=== PATIENT | female | born 1960 | race Caucasian/White ===

== ENCOUNTER 2016-10-17 14:49 | Inpatient (IN) | payer MEDICAID ==
[2016-10-17] MEDS ORDERED: Sodium Chloride 0.9% 2,000 ML IV ONE (15:25)
[2016-10-17] MEDS ORDERED: Morphine Sulfate 4 mg/mL 1mL Syr ONE (15:26)
--- NOTE | 2016-10-17 15:32 | ED Physician Chart ---
Chief Complaint/HPI - Patient Information Date Seen:: 10/17/16 Time Seen:: 15:05 Chief Complaint:: FEVER, BODY ACHES, ABD PAIN SINCE YESTERDAY History of Present Illness:: This 56-year-old female presents with onset of fever, body aches and abdominal pain since yesterday. He had a fever of 102 this morning after she came home from work. She has pain in the region of the right shoulder which radiates all the way down to the right knee. Patient also has right upper quadrant, epigastric and left upper quadrant abdominal pain which radiates to the back. The pain is made worse by taking deep breaths and pressure over the area. Pain is accompanied by nausea without any vomiting or diarrhea. She characterizes the pain as being crampy with the severity of 9/10. The patient is status post cholecystectomy and appendectomy. The patient has not experienced similar symptoms in the past. 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 Allergies:: Allergies Allergy/AdvReac Type Severity Reaction Status Date / Time No Known Allergies Allergy Verified 10/17/16 14:56 Vitals:: Vital Signs - 8 hr 10/17/16 14:59 Temp 99.9 F HR 97 RR 18 BP 152/73 O2 Sat % 100 Review of Systems - Review of Systems General/Constitutional: Fever, Chills, No diaphoresis Skin: No rash, No bruising, Other (the patient has cat scratches on the inner surface of her left forearm from her cat.) Head: Headache, No light-headedness Eyes: No loss of vision, No diplopia ENT: No earache, No sore throat, Other (has nasal congestion with pain under both eyes.) Neck: Neck pain, No swelling, Stiffness, No mass noted GI: Nausea, No vomiting, No diarrhea, Pain, No constipation G/U: No dysuria, No frequency, No hematuria [employer] Adjuster: No abnormal vaginal bleed Musculoskeletal: Bone or joint pain (patient's joint pain is present primarily in the right shoulder and the right knee.), Back pain, Other (the patient's abdominal pain radiates around to her back.) Endocrine: No polyuria, No polydipsia Psychiatric: No prior psych history, No depression, No suicidal ideation Hematopoietic: No bruising, No lymphadenopathy Allergic/Immuno: No urticaria, No angioedema Neurological: No syncope, No focal symptoms, Weakness (weakness is generalized.) , No paresthesia, Headache, No seizure, No dizziness, No confusion, No vertigo Past Medical History - Past Medical History Past Medical History: DM, Other (had multiple episodes of SVT between 2004 and 2008 when she underwent ablation therapy.) Social History: Non Smoker, No Alcohol, No Drug Use, Legally, Employed , Other Employment:: 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 Surgical History: Appendectomy, Cholecystectomy, Family Medical History - Family Member Mother History Unknown: Yes Physical Exam - Physical Examination General/Constitutional: Awake, Well-developed, well-nourished, Alert, Non-toxic appearing, Ambulatory Other Gen/Cons comments:: Patient rates her abdominal pain is a 9/10 but she doesn't appear to be in significant distress. Head: Atraumatic Eyes: Lids, conjuctiva normal, PERRL, EOMI Other Eyes comments:: Sclera are anicteric and the patient has no nystagmus. Skin: No rash Other Skin comments:: Patient has multiple superficial scratches on the inner aspect of the left forearm. These came from her cat. ENMT: External ears, nose nl, TM canals nl, Nasal exam nl, Lips, teeth, gums nl , Oropharynx nl, Tonsils nl Neck: No JVD Other Neck comments:: Mild stiffness with associated pain 1 AP flexion is tested. Respiratory: Nl effort/Exclusion, No Wheeze/Rhonchi/Rales Cardio Vascular: RRR, No murmur, gallop, rubs, NL S1 S2 Other Cardio Vascular comments:: Good pulses in all 4 extremities. Other GI comments:: The patient's abdomen is nondistended. She has multiple abdominal scars from a , appendectomy and laparoscopic cholecystectomy. Bowel sounds are present but of decreased frequency. On palpation I don't appreciate any splenomegaly or hepatomegaly. There is plus for tenderness in the right upper quadrant, epigastric region, and left upper quadrant. No associated rebound or guarding is present. No pulsatile masses present. No hernias. : No CVA tenderness Extremities: No tenderness or effusion, Full ROM, normal strength in all extremities, No edema, Normal digits & nails Misc: Normal back, No paraspinal tenderness Other Misc comments:: No spinal tenderness in the cervical, thoracic or lumbar spine. Labs/Radiology/EKG Results - Lab Results Results: Laboratory Tests 10/17/16 10/17/16 10/17/16 15:34 15:34 15:34 WBC 13.7 H RBC 4.28 Hgb 11.9 Hct 35.0 MCV 81.6 MCH 27.8 MCHC Differential 34.1 RDW 11.1 L Plt Count 325 MPV 8.5 Neutrophils % 85.8 H Lymphocytes % 7.7 L Monocytes % 5.0 Eosinophils % 0.9 Basophils % 0.6 Sodium 125 L Potassium 4.2 Chloride 96 L Carbon Dioxide 21.0 Anion Gap 12.2 BUN 33 H Creatinine 2.2 H Est GFR ( Amer) 29.7 Est GFR (Non-Af Amer) 24.5 BUN/Creatinine Ratio 15.0 Glucose 529 H* Hemoglobin A1c % Whole Bld Lactic Acid 3.00 H* Calcium 9.4 Total Bilirubin 0.6 AST 13 ALT 12 Alkaline Phosphatase 80 Troponin I Total Protein 6.7 Albumin 3.7 Globulin 3.0 Albumin/Globulin Ratio 1.2 Amylase 57 Lipase 32 Serum Ketones 10/17/16 10/17/16 10/17/16 15:34 15:34 15:34 WBC RBC Hgb Hct MCV MCH MCHC Differential RDW Plt Count MPV Neutrophils % Lymphocytes % Monocytes % Eosinophils % Basophils % Sodium Potassium Chloride Carbon Dioxide Anion Gap BUN Creatinine Est GFR ( Amer) Est GFR (Non-Af Amer) BUN/Creatinine Ratio Glucose Hemoglobin A1c % > 15.0 H Whole Bld Lactic Acid Calcium Total Bilirubin AST ALT Alkaline Phosphatase Troponin I 0.01 Total Protein Albumin Globulin Albumin/Globulin Ratio Amylase Lipase Serum Ketones NEGATIVE SINGLE VIEW CXR: NO CARDIOMEGALY OR CHF. NO AREAS OF PULMONARY INFITRATE OR CONSOLIDATION. NO PNEUMOTHORAX OR PLEURAL EFFUSION. NORMAL MEDIASTINUM. IMPRESSION: NO ACUTE CARDIOPULMONARY FINDINGS. - EKG Interpretations EKG Time:: 16:10 Rate & Rhythm: normal sinus at a rate of 90 and without ectopy. [place]: E axis is normal. Intervals: normal HI interval. Normal QRS duration. Normal QT intervals Comments:: No ST elevation or depression. Mild flattening of the T waves. Impression: No acute ischemic findings. Assessment - Assessment General Assessment: CASE SUMMARY: This 56 year old female presents with onset of fever, abdominal pain and arthralgias. A sepsis workup was initiated. The patient was treated with 30 mL per KG normal saline. Laboratory studies showed a white count of 13.7, a lactic acid both .0, normal lipase and amylase, and a serum glucose of 529. she was treated with IV Zosyn and vancomycin. The patient symptoms were addressed with IV Zofran and morphine. She had good relief of pain and nausea. The case was discussed with Dr. Sotelo. The patient is being admitted for further diagnostic studies and treatment of sepsis. The patient was stable at the time of admission. MDM DDX Fever and Epigastric Pain: NOT Pancreatitis based on normal amylase and lipase levels. NOT Acute cholecystitis based on the patient's history of prior cholecystectomy. NOT Pneumonia based on the patient's history, physical examination in normal chest x-ray. NOT Acute appendicitis based on history of prior appendectomy. CRITICAL CARE OF 90 MINUTES FOR Treatment of acute sepsis, hyperglycemia, and abdominal pain. This was exclusive of any diagnostic procedures. ED Septic Shock - . Is Septic Shock (SBP<90, OR Lactate>4 mmol\L) present?: No - <6hrs of presentation: Vital Signs: Vital Signs - 8 hr 10/17/16 14:59 Temp 99.9 F HR 97 RR 18 BP 152/73 O2 Sat % 100 Reassessment (Disposition) - Reassessment Reassessment Condition:: Improved - Diagnosis Diagnosis:: ACUTE SEPSIS, UNCLEAR SOURCE. DIABETES WITH SEVERE HYPER GLYCEMIA IN THE 500 RANGE. - Aftercare/Follow up Instructions Aftercare/Follow-Up Instructions:: Counseled pt regarding lab results/diagnosis & need follow up ED Discharge Plan - Patient Disposition Admit/Discharge/Transfer: Acute Care w/in this hosp
[2016-10-17 15:43] LABS: % EOSINOPHILS 0.9 % (0.0-5.0); % LYMPHOCYTES 7.7 % (20.0-50.0); NEUTROPHILE ABSOLUTE 11.7 Th/cmm (1.8-8.0); PLATELET COUNT 325 Th/cmm (150-400)
[2016-10-17 15:49] LABS: % BASOPHILS 0.6 % (0.0-2.0); % NEUTROPHILS 85.8 % (40.0-80.0); HEMOGLOBIN 11.9 gm/dL (11.7-15.5); MEAN CELL VOLUME 81.6 fl (81-100); MEAN CORPUSCULAR HEMOGLOBIN 27.8 pg (27.0-31.0); MEAN CORPUSCULAR HGB CONC 34.1 pg (28.0-36.0); MEAN PLATELET VOLUME 8.5 fl; RED BLOOD COUNT 4.28 Mil/cmm (3.80-5.10); RED CELL DISTRIBUTION WIDTH 11.1 % (11.5-20.0)
[2016-10-17 15:52] LABS: WHITE BLOOD COUNT 13.7 Th/cmm (4.8-10.8)
[2016-10-17 16:00] LABS: ALB/GLOB RATIO 1.2 (1.0-1.8); ANION GAP 12.2 (7.0-16.0); BILIRUBIN,TOTAL 0.6 mg/dL (0.3-1.0); CALCIUM SERUM 9.4 mg/dL (8.6-10.3); CREATININE - SERUM 2.2 mg/dL (0.6-1.2); POTASSIUM SERUM 4.2 mEq/L (3.5-5.1)
[2016-10-17] MEDS ORDERED: Sodium Chloride 0.9% 1,000 ML IV ONE (16:23)
[2016-10-17] MEDS ORDERED: Piperacillin Sodium/Tazobact 3.375 gm Vial IV ONE ×2 (16:26→20:40)
[2016-10-17 20:25] LABS: URINE BILIRUBIN NEGATIVE (NEGATIVE); URINE BLOOD TRACE (NEGATIVE); URINE GLUCOSE (UA) >=1000 mg/dL (NEGATIVE); URINE KETONE NEGATIVE (NEGATIVE); URINE PROTEIN 100 mg/dL (NEGATIVE); URINE UROBILINOGEN 0.2 E.U./dL (0.2 - 1.0)
[2016-10-17] MEDS: Sodium Chloride 0.9% 1,000 ML IV SCH (20:26)
[2016-10-17 20:29] LABS: URINE COLOR YELLOW
[2016-10-17 20:30] LABS: URINE BACTERIA NONE SEEN /hpf (NONE SEEN); URINE EPITHELIAL CELLS NONE SEEN /lpf (FEW); URINE WBC NONE SEEN /hpf (0-5)
[2016-10-17] MEDS: INSULIN ASPART SLIDING SCALE 100 UNITS/ML UNIT SUBQ SCH (21:25)
[2016-10-18] MEDS ORDERED: Piperacillin Sodium/Tazobact 3.375 gm Vial IV ONE (04:13)
[2016-10-18] MEDS: Sodium Chloride 0.9% 1,000 ML IV SCH ×3 (04:54→23:20)
[2016-10-18 05:31] LABS: % BASOPHILS 0.1 % (0.0-2.0); % EOSINOPHILS 3.4 % (0.0-5.0); % LYMPHOCYTES 20.6 % (20.0-50.0); % MONOCYTES 6.3 % (2.0-10.0); % NEUTROPHILS 69.6 % (40.0-80.0); HEMATOCRIT 33.2 % (35.0-45.0); HEMOGLOBIN 11.4 gm/dL (11.7-15.5); MEAN CELL VOLUME 82.4 fl (81-100); MEAN CORPUSCULAR HEMOGLOBIN 28.3 pg (27.0-31.0); MEAN CORPUSCULAR HGB CONC 34.4 pg (28.0-36.0); MEAN PLATELET VOLUME 8.6 fl; NEUTROPHILE ABSOLUTE 6.4 Th/cmm (1.8-8.0); PLATELET COUNT 280 Th/cmm (150-400); RED BLOOD COUNT 4.02 Mil/cmm (3.80-5.10); RED CELL DISTRIBUTION WIDTH 11.2 % (11.5-20.0)
[2016-10-18 06:02] LABS: WHITE BLOOD COUNT 9.2 Th/cmm (4.8-10.8)
[2016-10-18 06:06] LABS: ANION GAP 10.2 (7.0-16.0); CALCIUM SERUM 8.2 mg/dL (8.6-10.3); CARBON DIOXIDE 19.6 mEq/L (21.0-31.0); POTASSIUM SERUM 3.8 mEq/L (3.5-5.1)
[2016-10-18] MEDS: INSULIN ASPART SLIDING SCALE 100 UNITS/ML UNIT SUBQ SCH ×4 (07:01→20:29)
--- NOTE | 2016-10-18 08:31 | Diagnostic Imaging Report ---
Portable chest x-ray Time: 1817 History: Fever Allowing for portable technique the heart size is normal. No focal pulmonary parenchymal processes. No hilar or mediastinal abnormalities. Impression: No acute abnormalities.
--- NOTE | 2016-10-18 14:34 | Internal Medicine Prog Note ---
Internal Medicine Objective - Results Result Diagrams: 10/18/16 04:55 10/18/16 04:55 Recent Labs: Laboratory Last Values WBC 9.2 Th/cmm (4.8-10.8) D 10/18/16 04:55 RBC 4.02 Mil/cmm (3.80-5.10) 10/18/16 04:55 Hgb 11.4 gm/dL (11.7-15.5) L 10/18/16 04:55 Hct 33.2 % (35.0-45.0) L 10/18/16 04:55 MCV 82.4 fl (81-100) 10/18/16 04:55 MCH 28.3 pg (27.0-31.0) 10/18/16 04:55 MCHC Differential 34.4 pg (28.0-36.0) 10/18/16 04:55 RDW 11.2 % (11.5-20.0) L 10/18/16 04:55 Plt Count 280 Th/cmm (150-400) 10/18/16 04:55 MPV 8.6 fl 10/18/16 04:55 Neutrophils % 69.6 % (40.0-80.0) 10/18/16 04:55 Lymphocytes % 20.6 % (20.0-50.0) 10/18/16 04:55 Monocytes % 6.3 % (2.0-10.0) 10/18/16 04:55 Eosinophils % 3.4 % (0.0-5.0) 10/18/16 04:55 Basophils % 0.1 % (0.0-2.0) 10/18/16 04:55 Sodium 136 mEq/L (136-145) 10/18/16 04:55 Potassium 3.8 mEq/L (3.5-5.1) 10/18/16 04:55 Chloride 110 mEq/L (98-107) H 10/18/16 04:55 Carbon Dioxide 19.6 mEq/L (21.0-31.0) L 10/18/16 04:55 Anion Gap 10.2 (7.0-16.0) 10/18/16 04:55 BUN 22 mg/dL (7-25) 10/18/16 04:55 Creatinine 2.0 mg/dL (0.6-1.2) H 10/18/16 04:55 Est GFR ( Amer) 33.1 ml/min (>90) 10/18/16 04:55 Est GFR (Non-Af Amer) 27.4 ml/min 10/18/16 04:55 BUN/Creatinine Ratio 11.0 10/18/16 04:55 Glucose 151 mg/dL (70-105) H 10/18/16 04:55 POC Glucose 244 MG/DL (70 - 105) H 10/18/16 11:22 Hemoglobin A1c % 15.9 % (4.0-6.0) H 10/17/16 15:34 Whole Bld Lactic Acid 2.16 mmol/L (0.60-1.99) H* 10/17/16 17:38 Calcium 8.2 mg/dL (8.6-10.3) L 10/18/16 04:55 Total Bilirubin 0.6 mg/dL (0.3-1.0) 10/17/16 15:34 AST 13 U/L (13-39) 10/17/16 15:34 ALT 12 U/L (7-52) 10/17/16 15:34 Alkaline Phosphatase 80 U/L (34-104) 10/17/16 15:34 Troponin I 0.01 ng/mL (0.01-0.05) 10/17/16 15:34 Total Protein 6.7 gm/dL (6.0-8.3) 10/17/16 15:34 Albumin 3.7 gm/dL (3.7-5.3) 10/17/16 15:34 Globulin 3.0 gm/dL 10/17/16 15:34 Albumin/Globulin Ratio 1.2 (1.0-1.8) 10/17/16 15:34 Amylase 57 U/L (29-103) 10/17/16 15:34 Lipase 32 U/L (11-82) 10/17/16 15:34 Urine Source RANDOM 10/17/16 19:02 Urine Color YELLOW 10/17/16 19:02 Urine Clarity CLEAR (CLEAR) 10/17/16 19:02 Urine pH 6.0 (4.6 - 8.0) 10/17/16 19:02 Ur Specific [place] 1.010 (1.005-1.030) 10/17/16 19:02 Urine Protein 100 mg/dL (NEGATIVE) H 10/17/16 19:02 Urine Glucose (UA) >=1000 mg/dL (NEGATIVE) H 10/17/16 19:02 Urine Ketones NEGATIVE mg/dL (NEGATIVE) 10/17/16 19:02 Urine Blood TRACE (NEGATIVE) 10/17/16 19:02 Urine Nitrate NEGATIVE (NEGATIVE) 10/17/16 19:02 Urine Bilirubin NEGATIVE (NEGATIVE) 10/17/16 19:02 Urine Urobilinogen 0.2 E.U./dL (0.2 - 1.0) 10/17/16 19:02 Ur Leukocyte Esterase NEGATIVE (NEGATIVE) 10/17/16 19:02 Urine RBC 2-5 /hpf (0-5) 10/17/16 19:02 Urine WBC NONE SEEN /hpf (0-5) 10/17/16 19:02 Ur Epithelial Cells NONE SEEN /lpf (FEW) 10/17/16 19:02 Urine Bacteria NONE SEEN /hpf (NONE SEEN) 10/17/16 19:02 Serum Ketones NEGATIVE (NEGATIVE) 10/17/16 15:34 - Physical Exam Vitals and I&O: Vital Signs Temp 98.6 F 10/18/16 08:00 Pulse 80 10/18/16 08:00 Resp 16 10/18/16 08:00 BP 125/73 10/18/16 08:00 Pulse Ox 98 10/18/16 04:00 Intake & Output 10/17/16 10/18/16 10/18/16 18:59 06:59 18:59 Intake Total 1340 1120 Balance 1340 1120 Weight (lbs) 74.162 kg 74.162 kg Intake: Intake, IV Amount 1100 1000 Piperacillin Sodium/ 100 Tazobact 3.375 gm In Sodium Chloride 0.9% 50 ml @ 100 mls/hr IV Q8HR [facility] Rx#:[id number] Sodium Chloride 0.9% 1, 1000 1000 000 ml @ 125 mls/hr IV . Q8H [facility] Rx#:[id number] Oral 240 120 Other: # Voids 3 # Bowel Movements 0 Stool Characteristics Soft Brown Active Medications: Current Medications Piperacillin Sod/Tazobactam (Sod 3.375 gm/ Sodium Chloride) 50 mls @ 100 mls/ hr IV Q8HR [facility] Stop: 12/16/16 20:59 Last Admin: 10/18/16 12:33 Dose: 100 mls/hr Sodium Chloride (Nacl 0.9%) 1,000 mls @ 125 mls/hr IV .Q8H [facility] Stop: 12/16/16 18:18 Last Admin: 10/18/16 14:05 Dose: 125 mls/hr Vancomycin HCl 0.75 gm/ Sodium (Chloride) 250 mls @ 165 mls/hr IV Q24HR@1700 [facility] Stop: 12/17/16 16:59 Insulin Aspart (Novolog Insulin Sliding Scale) 0 units SUBQ ACHS [facility] PRN Reason: Protocol Stop: 12/16/16 20:59 Last Admin: 10/18/16 11:44 Dose: 4 units Miscellaneous (Vancomycin Iv Per Pharmacy) 1 ea [facility] PRN PRN PRN Reason: PROTOCOL Stop: 12/17/16 07:22
--- NOTE | 2016-10-18 16:09 | History & Physical ---
ADMIT DATE: 10/18/2016 CHIEF COMPLAINT: The patient is a 56-year-old female came to the Emergency Room complaining of fever, body aches, abdominal pain for 2 days and the patient was admitted. HISTORY OF PRESENT ILLNESS: Complaining of body aches and pains for 2 days. She had fever up to 102, left upper quadrant pain radiating to the back, severity 9/10 and the patient had a workup done in the Emergency Room showed a high white count and the patient had no fever, no chills, no rigors. The patient complaining of more body aches. PAST MEDICAL HISTORY: Included diabetes and history of SVT, he underwent ablation therapy. 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 PHYSICAL EXAMINATION: GENERAL: The patient is well-developed, well-nourished female patient. VITAL SIGNS: Noted in chart. Abdominal pain 9/10. HEAD: Normal. ENT: Normal. NECK: Supple, nontender. LUNGS: Clear. CARDIOVASCULAR SYSTEM: S1, S2 heard. ABDOMEN: Soft. Bowel sounds are heard. CENTRAL NERVOUS SYSTEM: Grossly normal. LABORATORY DATA: White count is at 13.7, hemoglobin 11.9, hematocrit was 35. EKG showed normal sinus rhythm, rate about 90 and the patient's sodium was low. DIAGNOSES: Lactic acid was high, acute sepsis, unknown etiology, diabetes, severe hyperglycemia, uncontrolled diabetes and history of atrial fibrillation, history of ablation surgery in the past. PLAN: The patient was admitted and patient will also have work up for sepsis and will have Dr. Darrell Jara see the patient and I will follow the patient. JOB# [id number]
--- NOTE | 2016-10-18 16:17 | Infectious Disease Prog Note ---
Infectious Disease Subjective - Review of Systems Service Date: 10/18/16 Subjective: cc latrice/sepsis hpi- ct a/p ordered cr better ros no fver o/e vss chest cklaer abd soft ext no decdema dx latrice/sepsis plan - zosyn Infectious Disease Objective - Results Result Diagrams: 10/18/16 04:55 10/18/16 04:55 Recent Labs: Laboratory Last Values WBC 9.2 Th/cmm (4.8-10.8) D 10/18/16 04:55 RBC 4.02 Mil/cmm (3.80-5.10) 10/18/16 04:55 Hgb 11.4 gm/dL (11.7-15.5) L 10/18/16 04:55 Hct 33.2 % (35.0-45.0) L 10/18/16 04:55 MCV 82.4 fl (81-100) 10/18/16 04:55 MCH 28.3 pg (27.0-31.0) 10/18/16 04:55 MCHC Differential 34.4 pg (28.0-36.0) 10/18/16 04:55 RDW 11.2 % (11.5-20.0) L 10/18/16 04:55 Plt Count 280 Th/cmm (150-400) 10/18/16 04:55 MPV 8.6 fl 10/18/16 04:55 Neutrophils % 69.6 % (40.0-80.0) 10/18/16 04:55 Lymphocytes % 20.6 % (20.0-50.0) 10/18/16 04:55 Monocytes % 6.3 % (2.0-10.0) 10/18/16 04:55 Eosinophils % 3.4 % (0.0-5.0) 10/18/16 04:55 Basophils % 0.1 % (0.0-2.0) 10/18/16 04:55 Sodium 136 mEq/L (136-145) 10/18/16 04:55 Potassium 3.8 mEq/L (3.5-5.1) 10/18/16 04:55 Chloride 110 mEq/L (98-107) H 10/18/16 04:55 Carbon Dioxide 19.6 mEq/L (21.0-31.0) L 10/18/16 04:55 Anion Gap 10.2 (7.0-16.0) 10/18/16 04:55 BUN 22 mg/dL (7-25) 10/18/16 04:55 Creatinine 2.0 mg/dL (0.6-1.2) H 10/18/16 04:55 Est GFR ( Amer) 33.1 ml/min (>90) 10/18/16 04:55 Est GFR (Non-Af Amer) 27.4 ml/min 10/18/16 04:55 BUN/Creatinine Ratio 11.0 10/18/16 04:55 Glucose 151 mg/dL (70-105) H 10/18/16 04:55 POC Glucose 244 MG/DL (70 - 105) H 10/18/16 11:22 Hemoglobin A1c % 15.9 % (4.0-6.0) H 10/17/16 15:34 Whole Bld Lactic Acid 2.16 mmol/L (0.60-1.99) H* 10/17/16 17:38 Calcium 8.2 mg/dL (8.6-10.3) L 10/18/16 04:55 Total Bilirubin 0.6 mg/dL (0.3-1.0) 10/17/16 15:34 AST 13 U/L (13-39) 10/17/16 15:34 ALT 12 U/L (7-52) 10/17/16 15:34 Alkaline Phosphatase 80 U/L (34-104) 10/17/16 15:34 Troponin I 0.01 ng/mL (0.01-0.05) 10/17/16 15:34 Total Protein 6.7 gm/dL (6.0-8.3) 10/17/16 15:34 Albumin 3.7 gm/dL (3.7-5.3) 10/17/16 15:34 Globulin 3.0 gm/dL 10/17/16 15:34 Albumin/Globulin Ratio 1.2 (1.0-1.8) 10/17/16 15:34 Amylase 57 U/L (29-103) 10/17/16 15:34 Lipase 32 U/L (11-82) 10/17/16 15:34 Urine Source RANDOM 10/17/16 19:02 Urine Color YELLOW 10/17/16 19:02 Urine Clarity CLEAR (CLEAR) 10/17/16 19:02 Urine pH 6.0 (4.6 - 8.0) 10/17/16 19:02 Ur Specific [place] 1.010 (1.005-1.030) 10/17/16 19:02 Urine Protein 100 mg/dL (NEGATIVE) H 10/17/16 19:02 Urine Glucose (UA) >=1000 mg/dL (NEGATIVE) H 10/17/16 19:02 Urine Ketones NEGATIVE mg/dL (NEGATIVE) 10/17/16 19:02 Urine Blood TRACE (NEGATIVE) 10/17/16 19:02 Urine Nitrate NEGATIVE (NEGATIVE) 10/17/16 19:02 Urine Bilirubin NEGATIVE (NEGATIVE) 10/17/16 19:02 Urine Urobilinogen 0.2 E.U./dL (0.2 - 1.0) 10/17/16 19:02 Ur Leukocyte Esterase NEGATIVE (NEGATIVE) 10/17/16 19:02 Urine RBC 2-5 /hpf (0-5) 10/17/16 19:02 Urine WBC NONE SEEN /hpf (0-5) 10/17/16 19:02 Ur Epithelial Cells NONE SEEN /lpf (FEW) 10/17/16 19:02 Urine Bacteria NONE SEEN /hpf (NONE SEEN) 10/17/16 19:02 Serum Ketones NEGATIVE (NEGATIVE) 10/17/16 15:34 - Physical Exam Vitals and I&O: Vital Signs Temp 98.0 F 10/18/16 15:46 Pulse 80 10/18/16 15:46 Resp 16 10/18/16 15:46 BP 134/78 10/18/16 15:46 Pulse Ox 98 10/18/16 04:00 Intake & Output 10/17/16 10/18/16 10/18/16 18:59 06:59 18:59 Intake Total 1340 1120 Balance 1340 1120 Weight (lbs) 74.162 kg 74.162 kg Intake: Intake, IV Amount 1100 1000 Piperacillin Sodium/ 100 Tazobact 3.375 gm In Sodium Chloride 0.9% 50 ml @ 100 mls/hr IV Q8HR [facility] Rx#:[id number] Sodium Chloride 0.9% 1, 1000 1000 000 ml @ 125 mls/hr IV . Q8H [facility] Rx#:[id number] Oral 240 120 Other: # Voids 3 # Bowel Movements 0 Stool Characteristics Soft Brown Active Medications: Current Medications Aspirin (Aspirin Chewable) 81 mg PO DAILY [facility] Stop: 12/18/16 08:59 Piperacillin Sod/Tazobactam (Sod 3.375 gm/ Sodium Chloride) 50 mls @ 100 mls/ hr IV Q8HR [facility] Stop: 12/16/16 20:59 Last Admin: 10/18/16 12:33 Dose: 100 mls/hr Sodium Chloride (Nacl 0.9%) 1,000 mls @ 125 mls/hr IV .Q8H [facility] Stop: 12/16/16 18:18 Last Admin: 10/18/16 14:05 Dose: 125 mls/hr Vancomycin HCl 0.75 gm/ Sodium (Chloride) 250 mls @ 165 mls/hr IV Q24HR@1700 [facility] Stop: 12/17/16 16:59 Last Admin: 10/18/16 16:08 Dose: 165 mls/hr Insulin Aspart (Novolog Insulin Sliding Scale) 0 units SUBQ ACHS [facility] PRN Reason: Protocol Stop: 12/16/16 20:59 Last Admin: 10/18/16 11:44 Dose: 4 units Insulin Aspart (Novolog) 10 units SUBQ TID [facility] Stop: 12/17/16 20:59 Metoprolol Tartrate (Lopressor) 50 mg PO DAILY [facility] Stop: 12/18/16 08:59 Miscellaneous (Vancomycin Iv Per Pharmacy) 1 ea [facility] PRN PRN PRN Reason: PROTOCOL Stop: 12/17/16 07:22 Morphine Sulfate (Morphine) 2 mg IVP Q4HR PRN PRN Reason: Abdominal Pain Stop: 12/17/16 14:35 Infectious Disease Assmt/Plan - Problem List Patient Problems: All Active Problems FEVER WITH POSTERIOR BODY ACHES (Acute)
[2016-10-18] MEDS ORDERED: Vancomycin HCl 500 MG in Sodium Chloride 0.9% 100 ML IV SCH (17:00)
--- NOTE | 2016-10-18 19:41 | Consultation ---
DATE OF CONSULTATION: 10/18/2016 ATTENDING PHYSICIAN: Cyril Solomon M.D. SWITCHING OPERATOR: John Pozo M.D. REASON FOR CONSULTATION: Worsening kidney function, electrolyte imbalance, and fluid management. HISTORY OF PRESENT ILLNESS: This is a 56-year-old female with past medical history of chronic kidney disease, who came in because of severe abdominal pain. Two days prior to admission, she developed nonspecific diffuse abdominal pain. This was associated with bloating, temperature of 102 as well as right leg pain. One day prior to admission, she had a bowel movement, which she described as semi-formed. There was no relief of her pain. A few hours prior to admission, her abdominal pain radiated to her bag. She can tolerate her medications as well as fluids. It came to the point that she could no longer tolerate the pain. She then proceeded to the Emergency Room. Her white count was 13.7 with a temperature of 99.3. Amylase/lipase were 57/32. Urinalysis was negative. She had no nausea and vomiting, diarrhea, hematochezia, melena, hematemesis, nor mucoid stool. Three months prior to admission, she saw her prior medical physician and was advised that she had diabetic nephropathy. She was assigned to see shop director in [place], [place]. Her BUN/creatinine on admission were 33/2.2. PAST MEDICAL HISTORY: 1. CKD. 2. Diabetes mellitus for 20 years. 3. Essential hypertension for 20 years. PAST SURGICAL HISTORY: Status post cholecystectomy, status post appendectomy, and status post section. SOCIAL HISTORY: No history of alcohol or tobacco use. 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 FAMILY HISTORY: Father had a history of lung disease as well as mother had a history of CVA. Both parents had diabetes as well as hypertension. There is also a strong history of diabetes among her siblings. REVIEW OF SYSTEMS: CONSTITUTIONAL: She did complain of weakness. Appetite had been poor. She did have fever. HEENT: Denies any headaches, no dizziness. Vision and hearing acuity remains within acceptable limits. CARDIORESPIRATORY: No chest pain, palpitations, diaphoresis, cough, and no shortness of breath. GASTROINTESTINAL: She had no nausea or vomiting. However, she did have abdominal pain nonspecific and diffuse. This was associated with bloating. No hematemesis, melena, hematochezia, diarrhea, nor constipation. HEMATOLOGIC: She has mild anemia. MUSCULOSKELETAL: Multiple joint arthralgias with right lower extremity pain. GENITOURINARY: History of kidney failure due to diabetes. No dysuria, no hematuria. However, she does have polyuria. NEUROPSYCH: No syncopal episode, nor seizure activity. PHYSICAL EXAMINATION: GENERAL: The patient is alert, verbal, and comfortable. VITAL SIGNS: Blood pressure is 127/74, pulse 80, and temperature 99.3 degrees. SKIN: Poor turgor, warm, no rash, no jaundice appreciated. HEENT: Head is normocephalic and atraumatic. Eyes: Extraocular muscles intact. Pupils are equal, round, and reactive to light and accommodates. Anicteric sclerae, pale conjunctivae. Nose, midline nasal septum. Mouth: Dry mucosa. Good dentition. NECK: Supple. No adenopathy. No thyromegaly. No bruits. Trachea palpated in the midline. CHEST AND CVS: S1 and S2. No rub, murmur, or gallop appreciated. Point of maximal impulse fifth intercostal space, left midclavicular line. No abdominal or femoral bruits appreciated. LUNGS: Equal expansion. No use of accessory muscles. No supraclavicular retractions, decreased breath sounds, clear to auscultation without any wheeze. BREASTS: Symmetrical, without any discharge. ABDOMEN: Mildly globular, soft. Positive for bowel sounds. There is some tenderness on palpation in upper abdomen, but there was no muscle guarding, no rebound. RECTAL: The patient refused. GENITOURINARY: Normal appearing female genitalia. MUSCULOSKELETAL: No effusions present in her joints with adequate range of motion. EXTREMITIES: No evidence of edema, cyanosis, nor clubbing with palpable femoral, popliteal, and dorsalis pedis pulses. NEUROLOGIC: The patient is alert, verbal. Motor is 5/5. Cranial nerves 2-12 intact. Sensory intact. LABORATORY DATA: Did reveal white count of 9.2, hemoglobin 11.4, hematocrit 33.2, platelets 220,000, polys 69.6%. Sodium 136, potassium 3.8, chloride 110, bicarb 19, BUN 22, creatinine 2, glucose is 151, and calcium is 8.2. Troponin 0.01. Albumin 3.7. IMPRESSION: 1. Acute kidney injury on chronic kidney disease, MDRD GFR 27.4 mL per minute, stage 4. The patient's chronic kidney disease is secondary to diabetic nephropathy with longstanding history of diabetes and some underlying hypertensive nephrosclerosis. Her acute kidney injury is initially due to prerenal azotemia. She developed severe abdominal pain and was not able to take anything orally. She was not able to replenish both sensible and insensible fluid losses. Thus, her dehydration led to a decrease in effective circulating volume. Her prerenal azotemia progressed to acute tubular injury. 2. Diffuse nonspecific abdominal pain, etiology at this point unknown. She may have developed ileus secondary to gastroparesis due to uncontrolled diabetes. She may also have possible visceral pain. 3. Lower extremity pain, possibly diabetic neuropathy. 4. Type 2 diabetes mellitus, out of control. 5. Essential hypertension. 6. Leukocytosis due to leukemoid reaction. 7. Possible Pseudohyponatremia when the patient came in with a sodium of 125 due to her elevated blood sugar. PLAN: 1. Urine spot sodium, eosinophils and creatinine. 2. Urine microalbumin to creatinine ratio. 3. CT scan of the abdomen. 4. TSH, electrolytes, and CBC. 5. Analgesics. 6. IV fluids. Thank you Dr. Nam for this consult. I will follow the patient closely with you. JOB# [id number]
[2016-10-18] MEDS: Morphine Sulfate 4 mg/mL 1mL Syr IVP PRN (19:47)
--- NOTE | 2016-10-18 20:53 | Consultation ---
DATE OF CONSULTATION: 10/17/2016 PRIMARY PHYSICIAN: Dr. Nam. BED NUMBER: [id number]. HISTORY OF PRESENT ILLNESS: This is a 56-year-old female who was brought to the Emergency Room because of generalized body aches and pain, fever up to 102. The patient was found to have high creatinine. Infectious consultation was called for further treatment. Also, pain is localized to epigastric left upper quadrant and radiating to the back, severe 9/10, cramps. The patient's . Infectious consultation was called for further treatment. PAST HISTORY: Appendectomy, cholecystectomy. Other past history of diabetes mellitus, atrial fibrillation status post ablation. 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 Also history of . FAMILY HISTORY: Negative. REVIEW OF SYSTEMS: A 14-point review of systems negative except above. PHYSICAL EXAMINATION: GENERAL: The patient is alert and awake, not in distress. VITAL SIGNS: Temperature is 99.9, pulse 97, respiration 18, and blood pressure 152/73. HEENT: Mild pallor. No icterus or plaque. NECK: Supple. LUNGS: Breath sounds bilateral. HEART: S1 and S2. ABDOMEN: Soft. Bowel sounds present. NODES: No thyromegaly and no cervical lymph nodes. LAB DATA: White count is 13,000, hemoglobin is 11 g, platelets 325,000. Creatinine 2.2. Blood culture was ordered. UA shows more than 1000 glucose. Protein is 100. Lactic acid 2.16. Hemoglobin A1c is 15. DIAGNOSES: 1. Acute failure. 2. Diabetes, uncontrolled. 3. Generalized body aches. 4. Lactic acidosis. Also, chest x-ray reviewed. No infiltrate. The patient started on Zosyn. We will discontinue vancomycin because of renal toxicity and high creatinine. Renal consultation has been called for acute renal failure. Rest of the care as ordered in CPOE. Accu-Chek for blood sugar control. We will get CT of the abdomen and pelvis without any IV contrast to rule out any intraabdominal source. Other diagnoses are status post appendectomy, status post cholecystectomy, and . Thank you Dr. Nam for this consultation. JOB# [id number]
[2016-10-19] MEDS: INSULIN ASPART, RECOMBINANT 100 UNITS/ML SUBQ SCH ×3 (01:07→19:55)
[2016-10-19] MEDS: Morphine Sulfate 4 mg/mL 1mL Syr IVP PRN ×3 (04:48→20:31)
[2016-10-19] MEDS: Sodium Chloride 0.9% 1,000 ML IV SCH ×2 (04:50→14:06)
[2016-10-19 05:33] LABS: % BASOPHILS 0.4 % (0.0-2.0); % EOSINOPHILS 4.9 % (0.0-5.0); % LYMPHOCYTES 32.9 % (20.0-50.0); % MONOCYTES 7.8 % (2.0-10.0); HEMATOCRIT 33.3 % (35.0-45.0); HEMOGLOBIN 11.4 gm/dL (11.7-15.5); MEAN CORPUSCULAR HEMOGLOBIN 28.4 pg (27.0-31.0); MEAN CORPUSCULAR HGB CONC 34.2 pg (28.0-36.0); MEAN PLATELET VOLUME 8.1 fl; NEUTROPHILE ABSOLUTE 4.2 Th/cmm (1.8-8.0); PLATELET COUNT 294 Th/cmm (150-400); RED BLOOD COUNT 4.01 Mil/cmm (3.80-5.10); RED CELL DISTRIBUTION WIDTH 11.3 % (11.5-20.0); WHITE BLOOD COUNT 7.7 Th/cmm (4.8-10.8)
[2016-10-19 05:53] LABS: BUN/CREATININE RATIO 7.5; CALCIUM SERUM 8.5 mg/dL (8.6-10.3); CARBON DIOXIDE 21.9 mEq/L (21.0-31.0); MAGNESIUM 1.7 mg/dL (1.9-2.7); PHOSPHOROUS 2.4 mg/dL (2.5-5.0); POTASSIUM SERUM 3.9 mEq/L (3.5-5.1); URIC ACID 3.6 mg/dL (2.3-6.6)
[2016-10-19] MEDS: INSULIN ASPART SLIDING SCALE 100 UNITS/ML UNIT SUBQ SCH ×4 (11:29→21:30)
[2016-10-19] MEDS: Aspirin 81mg Chewable Tab PO SCH (11:29)
--- NOTE | 2016-10-19 11:49 | Diagnostic Imaging Report ---
CT scan abdomen and pelvis without intravenous contrast HISTORY: Pain Total DLP equals 473 CTDI equals 9.4 Axial sections were obtained from the xiphoid process down to the pubic symphysis. The liver exhibits a somewhat bulbous contour. No focal lesions are seen. The spleen appears normal. Surgical clips are noted in the marsha hepatis region consistent with a prior cholecystectomy. No focal abnormality seen in the region of the pancreas. No significant focal renal lesions. No calculi. No hydronephrosis. The adrenal glands appear normal. No significant bowel dilatation. The exam of the pelvis demonstrates preservation of normal fat planes. No abnormal soft tissue masses or abnormal fluid collections. Nondilated stool-filled sigmoid colon and rectum noted. IMPRESSION: 1. No acute abnormalities 2. Findings of a prior cholecystectomy
--- NOTE | 2016-10-19 14:16 | General Progress Note ---
Subjective - Review of Systems Service Date: 10/19/16 Subjective: stiil have gastric pain immediately after swallowing food followed by N/V Objective - Results Result Diagrams: 10/19/16 05:10 10/19/16 05:10 Recent Labs: Laboratory Last Values WBC 7.7 Th/cmm (4.8-10.8) 10/19/16 05:10 RBC 4.01 Mil/cmm (3.80-5.10) 10/19/16 05:10 Hgb 11.4 gm/dL (11.7-15.5) L 10/19/16 05:10 Hct 33.3 % (35.0-45.0) L 10/19/16 05:10 MCV 83.0 fl (81-100) 10/19/16 05:10 MCH 28.4 pg (27.0-31.0) 10/19/16 05:10 MCHC Differential 34.2 pg (28.0-36.0) 10/19/16 05:10 RDW 11.3 % (11.5-20.0) L 10/19/16 05:10 Plt Count 294 Th/cmm (150-400) 10/19/16 05:10 MPV 8.1 fl 10/19/16 05:10 Neutrophils % 54.0 % (40.0-80.0) 10/19/16 05:10 Lymphocytes % 32.9 % (20.0-50.0) 10/19/16 05:10 Monocytes % 7.8 % (2.0-10.0) 10/19/16 05:10 Eosinophils % 4.9 % (0.0-5.0) 10/19/16 05:10 Basophils % 0.4 % (0.0-2.0) 10/19/16 05:10 Sodium 138 mEq/L (136-145) 10/19/16 05:10 Potassium 3.9 mEq/L (3.5-5.1) 10/19/16 05:10 Chloride 111 mEq/L (98-107) H 10/19/16 05:10 Carbon Dioxide 21.9 mEq/L (21.0-31.0) 10/19/16 05:10 Anion Gap 9.0 (7.0-16.0) 10/19/16 05:10 BUN 15 mg/dL (7-25) 10/19/16 05:10 Creatinine 2.0 mg/dL (0.6-1.2) H 10/19/16 05:10 Est GFR ( Amer) 33.1 ml/min (>90) 10/19/16 05:10 Est GFR (Non-Af Amer) 27.4 ml/min 10/19/16 05:10 BUN/Creatinine Ratio 7.5 10/19/16 05:10 Glucose 175 mg/dL (70-105) H 10/19/16 05:10 POC Glucose 287 MG/DL (70 - 105) H 10/19/16 11:58 Hemoglobin A1c % 15.9 % (4.0-6.0) H 10/17/16 15:34 Whole Bld Lactic Acid 2.16 mmol/L (0.60-1.99) H* 10/17/16 17:38 Uric Acid 3.6 mg/dL (2.3-6.6) 10/19/16 05:10 Calcium 8.5 mg/dL (8.6-10.3) L 10/19/16 05:10 Phosphorus 2.4 mg/dL (2.5-5.0) L 10/19/16 05:10 Magnesium 1.7 mg/dL (1.9-2.7) L 10/19/16 05:10 Total Bilirubin 0.6 mg/dL (0.3-1.0) 10/17/16 15:34 AST 13 U/L (13-39) 10/17/16 15:34 ALT 12 U/L (7-52) 10/17/16 15:34 Alkaline Phosphatase 80 U/L (34-104) 10/17/16 15:34 Troponin I 0.01 ng/mL (0.01-0.05) 10/17/16 15:34 Total Protein 6.7 gm/dL (6.0-8.3) 10/17/16 15:34 Albumin 3.7 gm/dL (3.7-5.3) 10/17/16 15:34 Globulin 3.0 gm/dL 10/17/16 15:34 Albumin/Globulin Ratio 1.2 (1.0-1.8) 10/17/16 15:34 Amylase 57 U/L (29-103) 10/17/16 15:34 Lipase 32 U/L (11-82) 10/17/16 15:34 TSH 1.47 uIU/ml (0.34-5.60) 10/19/16 05:10 Urine Source RANDOM 10/17/16 19:02 Urine Color YELLOW 10/17/16 19:02 Urine Clarity CLEAR (CLEAR) 10/17/16 19:02 Urine pH 6.0 (4.6 - 8.0) 10/17/16 19:02 Ur Specific Blossom 1.010 (1.005-1.030) 10/17/16 19:02 Urine Protein 100 mg/dL (NEGATIVE) H 10/17/16 19:02 Urine Glucose (UA) >=1000 mg/dL (NEGATIVE) H 10/17/16 19:02 Urine Ketones NEGATIVE mg/dL (NEGATIVE) 10/17/16 19:02 Urine Blood TRACE (NEGATIVE) 10/17/16 19:02 Urine Nitrate NEGATIVE (NEGATIVE) 10/17/16 19:02 Urine Bilirubin NEGATIVE (NEGATIVE) 10/17/16 19:02 Urine Urobilinogen 0.2 E.U./dL (0.2 - 1.0) 10/17/16 19:02 Ur Leukocyte Esterase NEGATIVE (NEGATIVE) 10/17/16 19:02 Urine RBC 2-5 /hpf (0-5) 10/17/16 19:02 Urine WBC NONE SEEN /hpf (0-5) 10/17/16 19:02 Ur Epithelial Cells NONE SEEN /lpf (FEW) 10/17/16 19:02 Urine Bacteria NONE SEEN /hpf (NONE SEEN) 10/17/16 19:02 Serum Ketones NEGATIVE (NEGATIVE) 10/17/16 15:34 - Physical Exam Vitals and I&O: Vital Signs Temp 98.6 F 10/19/16 03:47 Pulse 85 10/19/16 03:47 Resp 17 10/19/16 03:47 BP 127/69 10/19/16 03:47 Pulse Ox 98 10/19/16 03:47 Intake & Output 10/18/16 10/19/16 10/19/16 18:59 06:59 18:59 Intake Total 1170 2027.5 1000 Balance 1170 2027.5 1000 Weight (lbs) 74.162 kg 73.142 kg Intake: Intake, IV Amount 1050 1787.5 1000 Piperacillin Sodium/ 50 100 Tazobact 3.375 gm In Sodium Chloride 0.9% 50 ml @ 100 mls/hr IV Q8HR [facility] Rx#:[id number] Sodium Chloride 0.9% 1, 1000 1687.5 1000 000 ml @ 125 mls/hr IV . Q8H [facility] Rx#:[id number] Oral 120 240 Other: Stool Characteristics Soft Brown Active Medications: Current Medications Aspirin (Aspirin Chewable) 81 mg PO DAILY [facility] Stop: 12/18/16 08:59 Last Admin: 10/19/16 11:29 Dose: Not Given Piperacillin Sod/Tazobactam (Sod 3.375 gm/ Sodium Chloride) 50 mls @ 100 mls/ hr IV Q8HR [facility] Stop: 12/16/16 20:59 Last Admin: 10/19/16 13:14 Dose: 100 mls/hr Sodium Chloride (Nacl 0.9%) 1,000 mls @ 125 mls/hr IV .Q8H [facility] Stop: 12/16/16 18:18 Last Admin: 10/19/16 14:06 Dose: 125 mls/hr Vancomycin HCl 0.75 gm/ Sodium (Chloride) 250 mls @ 165 mls/hr IV Q24HR@1700 [facility] Stop: 12/17/16 16:59 Last Admin: 10/18/16 16:08 Dose: 165 mls/hr Insulin Aspart (Novolog Insulin Sliding Scale) 0 units SUBQ ACHS [facility] PRN Reason: Protocol Stop: 12/16/16 20:59 Last Admin: 10/19/16 12:23 Dose: 6 units Insulin Aspart (Novolog) 10 units SUBQ TID [facility] Stop: 12/17/16 20:59 Last Admin: 10/19/16 11:29 Dose: Not Given Metoprolol Tartrate (Lopressor) 50 mg PO DAILY [facility] Stop: 12/18/16 08:59 Last Admin: 10/19/16 11:29 Dose: Not Given Miscellaneous (Vancomycin Iv Per Pharmacy) 1 ea [facility] PRN PRN PRN Reason: PROTOCOL Stop: 12/17/16 07:22 Morphine Sulfate (Morphine) 2 mg IVP Q4HR PRN PRN Reason: Abdominal Pain Stop: 12/17/16 14:35 Last Admin: 10/19/16 08:47 Dose: 2 mg General: Alert, Moderate distress HEENT: Atraumatic, PERRLA, EOMI Neck: Supple, +2 carotid pulse wo bruit Cardiovascular: Regular rate, Normal S1, Normal S2 Lungs: Clear to auscultation Abdomen: Bowel sounds, Soft, Tender (hyperactive), Other Extremities: no Edema Neurological: Sensation intact Skin: no Rash Psych/Mental Status: Mood NL Assessment/Plan - Problem List Patient Problems: All Active Problems FEVER WITH POSTERIOR BODY ACHES (Acute) - Assessment Assessment: ALEENA Nonspecific gastric pain radiating to back ? erosive gastritis, PUD Lower ext. pain possibnle DM neuropathy Type 2 DM ooc w/ CKD HTN w/ CKD - Plan Plan: Lab - Result Diagrams 10/19/16 05:10 10/19/16 05:10 Current Medications Aspirin (Aspirin Chewable) 81 mg PO DAILY [facility] Stop: 12/18/16 08:59 Last Admin: 10/19/16 11:29 Dose: Not Given Piperacillin Sod/Tazobactam (Sod 3.375 gm/ Sodium Chloride) 50 mls @ 100 mls/ hr IV Q8HR [facility] Stop: 12/16/16 20:59 Last Admin: 10/19/16 13:14 Dose: 100 mls/hr Sodium Chloride (Nacl 0.9%) 1,000 mls @ 125 mls/hr IV .Q8H [facility] Stop: 12/16/16 18:18 Last Admin: 10/19/16 14:06 Dose: 125 mls/hr Vancomycin HCl 0.75 gm/ Sodium (Chloride) 250 mls @ 165 mls/hr IV Q24HR@1700 [facility] Stop: 12/17/16 16:59 Last Admin: 10/18/16 16:08 Dose: 165 mls/hr Insulin Aspart (Novolog Insulin Sliding Scale) 0 units SUBQ ACHS [facility] PRN Reason: Protocol Stop: 12/16/16 20:59 Last Admin: 10/19/16 12:23 Dose: 6 units Insulin Aspart (Novolog) 10 units SUBQ TID [facility] Stop: 12/17/16 20:59 Last Admin: 10/19/16 11:29 Dose: Not Given Metoprolol Tartrate (Lopressor) 50 mg PO DAILY [facility] Stop: 12/18/16 08:59 Last Admin: 10/19/16 11:29 Dose: Not Given Miscellaneous (Vancomycin Iv Per Pharmacy) 1 ea [facility] PRN PRN PRN Reason: PROTOCOL Stop: 12/17/16 07:22 Morphine Sulfate (Morphine) 2 mg IVP Q4HR PRN PRN Reason: Abdominal Pain Stop: 12/17/16 14:35 Last Admin: 10/19/16 08:47 Dose: 2 mg Kidney fnc stable w/ Cr. of 2 continue ivf replace Mg, P04 add PPI
[2016-10-19] MEDS ORDERED: Mag Sulfate 2gm/50mL Premix 2 GM/50 ML BAG IV ONE (14:20)
--- NOTE | 2016-10-19 14:42 | Consultation ---
DATE OF CONSULTATION: 10/19/[address] Nam. HISTORY AND PHYSICAL: This is 56-year-old female patient came to the Emergency Room complaining of abdominal pain, nausea, vomiting. No diarrhea. In the Emergency Room, the patient was found to have acute renal failure on chronic renal failure. The patient is admitted. PAST MEDICAL HISTORY: The patient has a history of diabetes mellitus type 2, diabetic CKD stage IV, hypertension, cholecystectomy, appendectomy, , hypertension, diabetic peripheral neuropathy. FAMILY HISTORY: Unremarkable. SOCIAL HISTORY: No history of smoking, alcohol abuse. ALLERGIES: No known allergies. PHYSICAL EXAMINATION: VITAL SIGNS: Blood pressure 130/80, pulse 70, respirations 20. HEAD: Normocephalic. No lumps or bumps. EYES: Pupils equal, reactive to light. Fundi show AV nicking, sclerae white, conjunctivae pink. NECK: Carotid 2+. Normal upstroke. JVD 10 cm above the sternal angle. Thyroid not palpable. Lymph nodes not palpable. CHEST: Shows ____ diameter. No kyphosis, scoliosis. LUNGS: Bilateral bronchovesicular breath sounds. HEART: PMI fifth intercostal space lateral to midclavicular line. S1, S2. No S3, S4. Systolic murmur, grade 2/6, lower left sternal border without radiation. ABDOMEN: Soft. Liver, spleen not palpable, epigastric tenderness. No rebound tenderness. Bowel sounds active. RECTAL: Hemoccult negative. EXTREMITIES: Peripheral pulses 2+. No pedal edema. CLINICAL IMPRESSION: 1. Acute abdominal pain, rule out gallstones 2. Diabetes mellitus, type 2. 3. Diabetic peripheral neuropathy. 4. Diabetic chronic kidney disease, stage IV. 5. Hypertension. 6. Iron deficiency anemia. 7. Hyponatremia. PLAN: The patient to continue to monitor for any arrhythmias. We will get an echocardiogram for left ventricular function. JOB# [id number]
[2016-10-19] MEDS ORDERED: Potassium Phosphate 20 MMOLE in Sodium Chloride 0.9% 250 ML IV ONE (15:00)
[2016-10-19] MEDS: Pantoprazole 40 mg/Packet PO SCH (15:01)
[2016-10-19] MEDS ORDERED: Insulin Detemir 100 units/mL 10mL Vial SUBQ SCH (21:00)
[2016-10-20] MEDS: Sodium Chloride 0.9% 1,000 ML IV SCH ×2 (04:21→14:58)
[2016-10-20 06:40] LABS: ANION GAP 8.4 (7.0-16.0); BUN/CREATININE RATIO 6.1; CALCIUM SERUM 8.6 mg/dL (8.6-10.3); CARBON DIOXIDE 22.1 mEq/L (21.0-31.0); CREATININE - SERUM 1.8 mg/dL (0.6-1.2); PHOSPHOROUS 3.7 mg/dL (2.5-5.0); POTASSIUM SERUM 3.5 mEq/L (3.5-5.1)
[2016-10-20] MEDS: INSULIN ASPART SLIDING SCALE 100 UNITS/ML UNIT SUBQ SCH ×4 (06:52→21:24)
[2016-10-20] MEDS: Pantoprazole 40 mg/Packet PO SCH (08:36)
[2016-10-20] MEDS: Aspirin 81mg Chewable Tab PO SCH (08:36)
--- NOTE | 2016-10-20 09:42 | General Progress Note ---
Subjective - Review of Systems Subjective: awake, alert, abdominal pain has slightly improved Objective - Results Result Diagrams: 10/19/16 05:10 10/20/16 05:28 Recent Labs: Laboratory Last Values WBC 7.7 Th/cmm (4.8-10.8) 10/19/16 05:10 RBC 4.01 Mil/cmm (3.80-5.10) 10/19/16 05:10 Hgb 11.4 gm/dL (11.7-15.5) L 10/19/16 05:10 Hct 33.3 % (35.0-45.0) L 10/19/16 05:10 MCV 83.0 fl (81-100) 10/19/16 05:10 MCH 28.4 pg (27.0-31.0) 10/19/16 05:10 MCHC Differential 34.2 pg (28.0-36.0) 10/19/16 05:10 RDW 11.3 % (11.5-20.0) L 10/19/16 05:10 Plt Count 294 Th/cmm (150-400) 10/19/16 05:10 MPV 8.1 fl 10/19/16 05:10 Neutrophils % 54.0 % (40.0-80.0) 10/19/16 05:10 Lymphocytes % 32.9 % (20.0-50.0) 10/19/16 05:10 Monocytes % 7.8 % (2.0-10.0) 10/19/16 05:10 Eosinophils % 4.9 % (0.0-5.0) 10/19/16 05:10 Basophils % 0.4 % (0.0-2.0) 10/19/16 05:10 Eos Smear Source URINE 10/19/16 19:45 Eos Smear Total Cells NONE SEEN (NONE SEEN) 10/19/16 19:45 Sodium 138 mEq/L (136-145) 10/20/16 05:28 Potassium 3.5 mEq/L (3.5-5.1) 10/20/16 05:28 Chloride 111 mEq/L (98-107) H 10/20/16 05:28 Carbon Dioxide 22.1 mEq/L (21.0-31.0) 10/20/16 05:28 Anion Gap 8.4 (7.0-16.0) 10/20/16 05:28 BUN 11 mg/dL (7-25) 10/20/16 05:28 Creatinine 1.8 mg/dL (0.6-1.2) H 10/20/16 05:28 Est GFR ( Amer) 37.4 ml/min (>90) 10/20/16 05:28 Est GFR (Non-Af Amer) 30.9 ml/min 10/20/16 05:28 BUN/Creatinine Ratio 6.1 10/20/16 05:28 Glucose 106 mg/dL (70-105) H 10/20/16 05:28 POC Glucose 102 MG/DL (70 - 105) 10/20/16 06:19 Hemoglobin A1c % 15.9 % (4.0-6.0) H 10/17/16 15:34 Whole Bld Lactic Acid 2.16 mmol/L (0.60-1.99) H* 10/17/16 17:38 Uric Acid 3.6 mg/dL (2.3-6.6) 10/19/16 05:10 Calcium 8.6 mg/dL (8.6-10.3) 10/20/16 05:28 Phosphorus 3.7 mg/dL (2.5-5.0) 10/20/16 05:28 Magnesium 2.0 mg/dL (1.9-2.7) 10/20/16 05:28 Total Bilirubin 0.6 mg/dL (0.3-1.0) 10/17/16 15:34 AST 13 U/L (13-39) 10/17/16 15:34 ALT 12 U/L (7-52) 10/17/16 15:34 Alkaline Phosphatase 80 U/L (34-104) 10/17/16 15:34 Troponin I 0.01 ng/mL (0.01-0.05) 10/17/16 15:34 Total Protein 6.7 gm/dL (6.0-8.3) 10/17/16 15:34 Albumin 3.7 gm/dL (3.7-5.3) 10/17/16 15:34 Globulin 3.0 gm/dL 10/17/16 15:34 Albumin/Globulin Ratio 1.2 (1.0-1.8) 10/17/16 15:34 Amylase 57 U/L (29-103) 10/17/16 15:34 Lipase 32 U/L (11-82) 10/17/16 15:34 TSH 1.47 uIU/ml (0.34-5.60) 10/19/16 05:10 Urine Source RANDOM 10/17/16 19:02 Urine Color YELLOW 10/17/16 19:02 Urine Clarity CLEAR (CLEAR) 10/17/16 19:02 Urine pH 6.0 (4.6 - 8.0) 10/17/16 19:02 Ur Specific [place] 1.010 (1.005-1.030) 10/17/16 19:02 Urine Protein 100 mg/dL (NEGATIVE) H 10/17/16 19:02 Urine Glucose (UA) >=1000 mg/dL (NEGATIVE) H 10/17/16 19:02 Urine Ketones NEGATIVE mg/dL (NEGATIVE) 10/17/16 19:02 Urine Blood TRACE (NEGATIVE) 10/17/16 19:02 Urine Nitrate NEGATIVE (NEGATIVE) 10/17/16 19:02 Urine Bilirubin NEGATIVE (NEGATIVE) 10/17/16 19:02 Urine Urobilinogen 0.2 E.U./dL (0.2 - 1.0) 10/17/16 19:02 Ur Leukocyte Esterase NEGATIVE (NEGATIVE) 10/17/16 19:02 Urine RBC 2-5 /hpf (0-5) 10/17/16 19:02 Urine WBC NONE SEEN /hpf (0-5) 10/17/16 19:02 Ur Epithelial Cells NONE SEEN /lpf (FEW) 10/17/16 19:02 Urine Bacteria NONE SEEN /hpf (NONE SEEN) 10/17/16 19:02 Ur Random Sodium 120 mmol/L 10/19/16 19:45 Urine Creatinine 32.0 mg/dl (28.0-217.0) 10/19/16 19:45 Vancomycin Trough 8.0 ug/mL (10-20) L 10/19/16 16:00 Serum Ketones NEGATIVE (NEGATIVE) 10/17/16 15:34 - Physical Exam Vitals and I&O: Vital Signs Temp 98.1 F 10/20/16 04:00 Pulse 78 10/20/16 08:36 Resp 20 10/20/16 04:00 BP 134/73 10/20/16 08:36 Pulse Ox 98 10/20/16 04:00 Intake & Output 10/19/16 10/20/16 10/20/16 18:59 06:59 18:59 Intake Total 1000 1515.875 Balance 1000 1515.875 Weight (lbs) 71.804 kg Intake: Intake, IV Amount 1000 1415.875 Piperacillin Sodium/ 100 Tazobact 3.375 gm In Sodium Chloride 0.9% 50 ml @ 100 mls/hr IV Q8HR [facility] Rx#:[id number] Potassium Phosphate 20 65.875 mmole In Sodium Chloride 0.9% 250 ml @ 42.5 mls/hr IV X1 ONE Rx#:[id number] Sodium Chloride 0.9% 1, 1000 1000 000 ml @ 125 mls/hr IV . Q8H [facility] Rx#:[id number] Vancomycin HCl 750 mg In 250 Sodium Chloride 0.9% 250 ml @ 165 mls/hr IV Q12H [facility] Rx#:[id number] Oral 100 Other: # Voids 3 # Bowel Movements 1 Active Medications: Current Medications Aspirin (Aspirin Chewable) 81 mg PO DAILY [facility] Stop: 12/18/16 08:59 Last Admin: 10/20/16 08:36 Dose: 81 mg Piperacillin Sod/Tazobactam (Sod 3.375 gm/ Sodium Chloride) 50 mls @ 100 mls/ hr IV Q8HR [facility] Stop: 12/16/16 20:59 Last Admin: 10/20/16 05:55 Dose: 100 mls/hr Sodium Chloride (Nacl 0.9%) 1,000 mls @ 125 mls/hr IV .Q8H [facility] Stop: 12/16/16 18:18 Last Admin: 10/20/16 04:21 Dose: 125 mls/hr Vancomycin HCl 750 mg/ Sodium (Chloride) 250 mls @ 165 mls/hr IV Q12H [facility] Stop: 12/18/16 16:59 Last Admin: 10/20/16 04:21 Dose: 165 mls/hr Insulin Aspart (Novolog Insulin Sliding Scale) 0 units SUBQ ACHS [facility] PRN Reason: Protocol Stop: 12/16/16 20:59 Last Admin: 10/20/16 06:52 Dose: Not Given Insulin Detemir (Levemir Insulin) 20 units SUBQ HS [facility] PRN Reason: Protocol Stop: 12/18/16 20:59 Last Admin: 10/19/16 23:08 Dose: 20 unit Metoprolol Tartrate (Lopressor) 50 mg PO DAILY [facility] Stop: 12/18/16 08:59 Last Admin: 10/20/16 08:36 Dose: 50 mg Miscellaneous (Vancomycin Iv Per Pharmacy) 1 ea [facility] PRN PRN PRN Reason: PROTOCOL Stop: 12/17/16 07:22 Morphine Sulfate (Morphine) 2 mg IVP Q4HR PRN PRN Reason: Abdominal Pain Stop: 12/17/16 14:35 Last Admin: 10/19/16 20:31 Dose: 2 mg Ondansetron HCl (Zofran) 4 mg IV Q6H PRN PRN Reason: Nausea / Vomiting Stop: 12/18/16 17:27 Last Admin: 10/19/16 18:23 Dose: 4 mg Pantoprazole Sodium (Protonix) 40 mg PO DAILY [facility] Stop: 12/18/16 14:29 Last Admin: 10/20/16 08:36 Dose: 40 mg General: Alert, Moderate distress HEENT: Atraumatic, PERRLA, EOMI Neck: Supple, +2 carotid pulse wo bruit Cardiovascular: Regular rate, Normal S1, Normal S2 Lungs: Clear to auscultation Abdomen: Bowel sounds, Soft, Tender (hyperactive), Other Extremities: no Edema Neurological: Sensation intact Skin: no Rash Psych/Mental Status: Mood NL Assessment/Plan - Problem List Patient Problems: All Active Problems FEVER WITH POSTERIOR BODY ACHES (Acute) Nutritional Asmnt/Malnutr-PDOC - Dietary Evaluation Malnutrition Findings (Please click <Entered> for more info): Nutritional Asmnt/Malnutrition Start: 10/19/16 14: 26 Text: Status: Complete Freq: Document 10/19/16 14:26 [facility] (Rec: 10/19/16 14:38 [facility] [id number]) Nutritional Asmnt/Malnutrition Patient General Information Nutritional Screening Consult Diagnosis High lactic acid, acute sepsis Pertinent Medical Hx/Surgical Hx DM, hx SCT with ablation therapy. Subjective Information Nutrition Consult for high blood sugar received and completed. Pt is a 56-year-old female admitted with chief complaint of fever, body aches , and abdominal pain for 2 days. Pt was awake and alert. Pt reports working night shifts, and she only eats once a day around 1400. Pt drinks coffee, water, and tea throughout her work hours. RD discussed diabetes management with pt and encouraged consistent meal intake for glycemic control. Pt verbalized understanding. RD discussed alternative food ideas that she can tolerate, such as yogurts, smoothies, and nutrition oral supplements . RD weighed pt today with extra blankets removed: 158.2# /71.9 kg. Current Diet Order/ Nutrition Support CCHO-75 GM, renal Patient / S.O Indicated Pertinent Medications Novolog, Morphine, Piperacillin Sodium, NaCl 0.9% , Vancomycin Pertinent Labs (10/17) Glucose 529H, A1C 15.9H (10/19) Creatinine 2H ( improving), Glucose (fasting) 175H, POC Glucose 287H, Phosphorous 2.4L, Magnesium 1. 7L Nutritional Hx/Data Height 1.6 m Height (Calculated Centimeters) 160.0 Current Weight (lbs) 71.758 kg Weight (Calculated Kilograms) 71.8 Weight (Calculated Grams) 19742.3 Usual body Weight (lbs) 164 % Usual Body Weight 96 [place] Body Weight 115 % [place] Body Weight 138 Recent Weight Change Yes Weight Status Overweight GI Symptoms GI Symptoms Nausea Vomitting Food Allergies No Cultural/Ethnic/Voodoo Belief No cultural or orthodox beliefs reported. Usual diet at home Regular, one meal a day Skin Integrity/Comment: Shine 23. Skin intact. Current %PO Fair (50-74%) Estimated Nutritional Goals BEE in Kcals: Using Current wt Calories/Kcals/Kg Based on current wt 71.9 kg with consideration of overwt status, sepsis Kcals Calculated 3655-2499 kcals/day (25-30 kcals/kg) Protein: Using Current wt Protein g/kg: Based on current wt 71.9 kg with consideration of overwt status, sepsis Protein Calculated 89-93 gm/day (1.2-1.3 gm/kg) renal labs improving Fluid: ml Per MD/DO Nutritional Problem 2. Problem Problem Severe protein-calorie malnutrition related to Etiology inadequate oral intake as evidenced by Signs/Symptoms: significant 6% body wt loss in one month, dietary recall reveals less than 75% of estimated nutritional needs met x 2 years. 1. Problem Problem Altered nutrition-related laboratory values related to Etiology inconsistent carbohydrate intake, vomiting as evidenced by Signs/Symptoms: admitting glucose 529 mg/dl and A1C 15.9%. Malnutrition Alert Food and Nutrition Intake (Moderate) <75% est energy req 7days Interpretation of weight loss (Severe) >5% in 1 month Protein-Calorie Malnutrition Severe Is there a minimum of two criteria Yes selected? Query Text:Check all the applicable criteria. A minimum of two criteria are recommended for diagnosis of either severe or non-severe malnutrition. Malnutrition Related to Morbid Obesity Malnutrition related to morbid obesity No Intervention/Recommendation Recommendations by RD Dietary Education by RD1 Comments 1. Recommend CCHO-75 GM, low sodium diet to better meet protein needs. 2. Educate pt on consistent oral intake every 4-6 hours for glycemic regimen. Discussed food options that will be easier to consume with schedule and GI tolerance. Also discussed sitting up or walking for at least 30 minutes after eating to prevent reflux. Expected Outcomes/Goals Expected Outcomes/Goals 1. Blood glucose will trend towards desired parameters. 2. Pt will consume at least 75 % of meals consistently. Physician Parameters for PEM Serum Albumin (g/dl) 3.5 - 5.0 (Normal)
[2016-10-20 11:15] LABS: MICROALBUMIN RANDOM RUINE 670.5 ug/mL (Not Estab.)
[2016-10-20] MEDS: Morphine Sulfate 4 mg/mL 1mL Syr IVP PRN (11:30)
--- NOTE | 2016-10-20 13:50 | General Progress Note ---
Subjective - Review of Systems Service Date: 10/20/16 Subjective: stiil have gastric pain immediately after swallowing food followed by N/V Objective - Results Result Diagrams: 10/19/16 05:10 10/20/16 05:28 Recent Labs: Laboratory Last Values WBC 7.7 Th/cmm (4.8-10.8) 10/19/16 05:10 RBC 4.01 Mil/cmm (3.80-5.10) 10/19/16 05:10 Hgb 11.4 gm/dL (11.7-15.5) L 10/19/16 05:10 Hct 33.3 % (35.0-45.0) L 10/19/16 05:10 MCV 83.0 fl (81-100) 10/19/16 05:10 MCH 28.4 pg (27.0-31.0) 10/19/16 05:10 MCHC Differential 34.2 pg (28.0-36.0) 10/19/16 05:10 RDW 11.3 % (11.5-20.0) L 10/19/16 05:10 Plt Count 294 Th/cmm (150-400) 10/19/16 05:10 MPV 8.1 fl 10/19/16 05:10 Neutrophils % 54.0 % (40.0-80.0) 10/19/16 05:10 Lymphocytes % 32.9 % (20.0-50.0) 10/19/16 05:10 Monocytes % 7.8 % (2.0-10.0) 10/19/16 05:10 Eosinophils % 4.9 % (0.0-5.0) 10/19/16 05:10 Basophils % 0.4 % (0.0-2.0) 10/19/16 05:10 Eos Smear Source URINE 10/19/16 19:45 Eos Smear Total Cells NONE SEEN (NONE SEEN) 10/19/16 19:45 Sodium 138 mEq/L (136-145) 10/20/16 05:28 Potassium 3.5 mEq/L (3.5-5.1) 10/20/16 05:28 Chloride 111 mEq/L (98-107) H 10/20/16 05:28 Carbon Dioxide 22.1 mEq/L (21.0-31.0) 10/20/16 05:28 Anion Gap 8.4 (7.0-16.0) 10/20/16 05:28 BUN 11 mg/dL (7-25) 10/20/16 05:28 Creatinine 1.8 mg/dL (0.6-1.2) H 10/20/16 05:28 Est GFR ( Amer) 37.4 ml/min (>90) 10/20/16 05:28 Est GFR (Non-Af Amer) 30.9 ml/min 10/20/16 05:28 BUN/Creatinine Ratio 6.1 10/20/16 05:28 Glucose 106 mg/dL (70-105) H 10/20/16 05:28 POC Glucose 201 MG/DL (70 - 105) H 10/20/16 12:27 Hemoglobin A1c % 15.9 % (4.0-6.0) H 10/17/16 15:34 Whole Bld Lactic Acid 2.16 mmol/L (0.60-1.99) H* 10/17/16 17:38 Uric Acid 3.6 mg/dL (2.3-6.6) 10/19/16 05:10 Calcium 8.6 mg/dL (8.6-10.3) 10/20/16 05:28 Phosphorus 3.7 mg/dL (2.5-5.0) 10/20/16 05:28 Magnesium 2.0 mg/dL (1.9-2.7) 10/20/16 05:28 Total Bilirubin 0.6 mg/dL (0.3-1.0) 10/17/16 15:34 AST 13 U/L (13-39) 10/17/16 15:34 ALT 12 U/L (7-52) 10/17/16 15:34 Alkaline Phosphatase 80 U/L (34-104) 10/17/16 15:34 Troponin I 0.01 ng/mL (0.01-0.05) 10/17/16 15:34 Total Protein 6.7 gm/dL (6.0-8.3) 10/17/16 15:34 Albumin 3.7 gm/dL (3.7-5.3) 10/17/16 15:34 Globulin 3.0 gm/dL 10/17/16 15:34 Albumin/Globulin Ratio 1.2 (1.0-1.8) 10/17/16 15:34 Amylase 57 U/L (29-103) 10/17/16 15:34 Lipase 32 U/L (11-82) 10/17/16 15:34 TSH 1.47 uIU/ml (0.34-5.60) 10/19/16 05:10 Urine Source RANDOM 10/17/16 19:02 Urine Color YELLOW 10/17/16 19:02 Urine Clarity CLEAR (CLEAR) 10/17/16 19:02 Urine pH 6.0 (4.6 - 8.0) 10/17/16 19:02 Ur Specific [place] 1.010 (1.005-1.030) 10/17/16 19:02 Urine Protein 100 mg/dL (NEGATIVE) H 10/17/16 19:02 Urine Glucose (UA) >=1000 mg/dL (NEGATIVE) H 10/17/16 19:02 Urine Ketones NEGATIVE mg/dL (NEGATIVE) 10/17/16 19:02 Urine Blood TRACE (NEGATIVE) 10/17/16 19:02 Urine Nitrate NEGATIVE (NEGATIVE) 10/17/16 19:02 Urine Bilirubin NEGATIVE (NEGATIVE) 10/17/16 19:02 Urine Urobilinogen 0.2 E.U./dL (0.2 - 1.0) 10/17/16 19:02 Ur Leukocyte Esterase NEGATIVE (NEGATIVE) 10/17/16 19:02 Urine RBC 2-5 /hpf (0-5) 10/17/16 19:02 Urine WBC NONE SEEN /hpf (0-5) 10/17/16 19:02 Ur Epithelial Cells NONE SEEN /lpf (FEW) 10/17/16 19:02 Urine Bacteria NONE SEEN /hpf (NONE SEEN) 10/17/16 19:02 Ur Random Sodium 120 mmol/L 10/19/16 19:45 Urine Creatinine 25.5 mg/dl (Not Estab.) 10/19/16 19:45 Urine Microalbumin 670.5 ug/mL (Not Estab.) 10/19/16 19:45 Microalb/Creat Ratio 2629.4 mg/g creat (0.0-30.0) H 10/19/16 19:45 Vancomycin Trough 8.0 ug/mL (10-20) L 10/19/16 16:00 Serum Ketones NEGATIVE (NEGATIVE) 10/17/16 15:34 - Physical Exam Vitals and I&O: Vital Signs Temp 98.1 F 10/20/16 04:00 Pulse 78 10/20/16 08:36 Resp 20 10/20/16 04:00 BP 134/73 10/20/16 08:36 Pulse Ox 98 10/20/16 04:00 Intake & Output 10/19/16 10/20/16 10/20/16 18:59 06:59 18:59 Intake Total 1000 1565.875 Balance 1000 1565.875 Weight (lbs) 71.804 kg Intake: Intake, IV Amount 1000 1465.875 Piperacillin Sodium/ 150 Tazobact 3.375 gm In Sodium Chloride 0.9% 50 ml @ 100 mls/hr IV Q8HR [facility] Rx#:[id number] Potassium Phosphate 20 65.875 mmole In Sodium Chloride 0.9% 250 ml @ 42.5 mls/hr IV X1 ONE Rx#:[id number] Sodium Chloride 0.9% 1, 1000 1000 000 ml @ 125 mls/hr IV . Q8H [facility] Rx#:[id number] Vancomycin HCl 750 mg In 250 Sodium Chloride 0.9% 250 ml @ 165 mls/hr IV Q12H [facility] Rx#:[id number] Oral 100 Other: # Voids 3 # Bowel Movements 1 Active Medications: Current Medications Aspirin (Aspirin Chewable) 81 mg PO DAILY [facility] Stop: 12/18/16 08:59 Last Admin: 10/20/16 08:36 Dose: 81 mg Piperacillin Sod/Tazobactam (Sod 3.375 gm/ Sodium Chloride) 50 mls @ 100 mls/ hr IV Q8HR [facility] Stop: 12/16/16 20:59 Last Admin: 10/20/16 13:32 Dose: 100 mls/hr Sodium Chloride (Nacl 0.9%) 1,000 mls @ 125 mls/hr IV .Q8H [facility] Stop: 12/16/16 18:18 Last Admin: 10/20/16 04:21 Dose: 125 mls/hr Vancomycin HCl 750 mg/ Sodium (Chloride) 250 mls @ 165 mls/hr IV Q12H [facility] Stop: 12/18/16 16:59 Last Admin: 10/20/16 04:21 Dose: 165 mls/hr Insulin Aspart (Novolog Insulin Sliding Scale) 0 units SUBQ ACHS [facility] PRN Reason: Protocol Stop: 12/16/16 20:59 Last Admin: 10/20/16 12:45 Dose: 4 units Insulin Detemir (Levemir Insulin) 20 units SUBQ HS [facility] PRN Reason: Protocol Stop: 12/18/16 20:59 Last Admin: 10/19/16 23:08 Dose: 20 unit Metoprolol Tartrate (Lopressor) 50 mg PO DAILY [facility] Stop: 12/18/16 08:59 Last Admin: 10/20/16 08:36 Dose: 50 mg Miscellaneous (Vancomycin Iv Per Pharmacy) 1 ea [facility] PRN PRN PRN Reason: PROTOCOL Stop: 12/17/16 07:22 Morphine Sulfate (Morphine) 2 mg IVP Q4HR PRN PRN Reason: Abdominal Pain Stop: 12/17/16 14:35 Last Admin: 10/20/16 11:30 Dose: 2 mg Ondansetron HCl (Zofran) 4 mg IV Q6H PRN PRN Reason: Nausea / Vomiting Stop: 12/18/16 17:27 Last Admin: 10/19/16 18:23 Dose: 4 mg Pantoprazole Sodium (Protonix) 40 mg PO DAILY [facility] Stop: 12/18/16 14:29 Last Admin: 10/20/16 08:36 Dose: 40 mg General: Alert, Moderate distress HEENT: Atraumatic, PERRLA, EOMI Neck: Supple, +2 carotid pulse wo bruit Cardiovascular: Regular rate, Normal S1, Normal S2 Lungs: Clear to auscultation Abdomen: Bowel sounds, Soft, Tender (hyperactive), Other Extremities: no Edema Neurological: Sensation intact Skin: no Rash Psych/Mental Status: Mood NL Assessment/Plan - Problem List Patient Problems: All Active Problems FEVER WITH POSTERIOR BODY ACHES (Acute) - Assessment Assessment: ALEENA Nonspecific gastric pain radiating to back ? erosive gastritis, PUD Lower ext. pain possible DM neuropathy Type 2 DM ooc w/ CKD HTN w/ CKD - Plan Plan: Lab - Result Diagrams 10/19/16 05:10 10/19/16 05:10 Current Medications Aspirin (Aspirin Chewable) 81 mg PO DAILY [facility] Stop: 12/18/16 08:59 Last Admin: 10/19/16 11:29 Dose: Not Given Piperacillin Sod/Tazobactam (Sod 3.375 gm/ Sodium Chloride) 50 mls @ 100 mls/ hr IV Q8HR [facility] Stop: 12/16/16 20:59 Last Admin: 10/19/16 13:14 Dose: 100 mls/hr Sodium Chloride (Nacl 0.9%) 1,000 mls @ 125 mls/hr IV .Q8H [facility] Stop: 12/16/16 18:18 Last Admin: 10/19/16 14:06 Dose: 125 mls/hr Vancomycin HCl 0.75 gm/ Sodium (Chloride) 250 mls @ 165 mls/hr IV Q24HR@1700 [facility] Stop: 12/17/16 16:59 Last Admin: 10/18/16 16:08 Dose: 165 mls/hr Insulin Aspart (Novolog Insulin Sliding Scale) 0 units SUBQ ACHS [facility] PRN Reason: Protocol Stop: 12/16/16 20:59 Last Admin: 10/19/16 12:23 Dose: 6 units Insulin Aspart (Novolog) 10 units SUBQ TID [facility] Stop: 12/17/16 20:59 Last Admin: 10/19/16 11:29 Dose: Not Given Metoprolol Tartrate (Lopressor) 50 mg PO DAILY [facility] Stop: 12/18/16 08:59 Last Admin: 10/19/16 11:29 Dose: Not Given Miscellaneous (Vancomycin Iv Per Pharmacy) 1 ea [facility] PRN PRN PRN Reason: PROTOCOL Stop: 12/17/16 07:22 Morphine Sulfate (Morphine) 2 mg IVP Q4HR PRN PRN Reason: Abdominal Pain Stop: 12/17/16 14:35 Last Admin: 10/19/16 08:47 Dose: 2 mg Kidney fnc stable w/ Cr. of 1.8 continue ivf but decrease rate replace Mg, P04 add PPI, simethicone BS still elevated, increase Detemir start Losartan for proteinuria consider GI consult for possible EGD Nutritional Asmnt/Malnutr-PDOC - Dietary Evaluation Malnutrition Findings (Please click <Entered> for more info): Nutritional Asmnt/Malnutrition Start: 10/19/16 14: 26 Text: Status: Complete Freq: Document 10/19/16 14:26 [facility] (Rec: 10/19/16 14:38 [facility] [id number]) Nutritional Asmnt/Malnutrition Patient General Information Nutritional Screening Consult Diagnosis High lactic acid, acute sepsis Pertinent Medical Hx/Surgical Hx DM, hx SCT with ablation therapy. Subjective Information Nutrition Consult for high blood sugar received and completed. Pt is a 56-year-old female admitted with chief complaint of fever, body aches , and abdominal pain for 2 days. Pt was awake and alert. Pt reports working night shifts, and she only eats once a day around 1400. Pt drinks coffee, water, and tea throughout her work hours. RD discussed diabetes management with pt and encouraged consistent meal intake for glycemic control. Pt verbalized understanding. RD discussed alternative food ideas that she can tolerate, such as yogurts, smoothies, and nutrition oral supplements . RD weighed pt today with extra blankets removed: 158.2# /71.9 kg. Current Diet Order/ Nutrition Support CCHO-75 GM, renal Patient / S.O Indicated Pertinent Medications Novolog, Morphine, Piperacillin Sodium, NaCl 0.9% , Vancomycin Pertinent Labs (10/17) Glucose 529H, A1C 15.9H (10/19) Creatinine 2H ( improving), Glucose (fasting) 175H, POC Glucose 287H, Phosphorous 2.4L, Magnesium 1. 7L Nutritional Hx/Data Height 1.6 m Height (Calculated Centimeters) 160.0 Current Weight (lbs) 71.758 kg Weight (Calculated Kilograms) 71.8 Weight (Calculated Grams) 93253.3 Usual body Weight (lbs) 164 % Usual Body Weight 96 [place] Body Weight 115 % [place] Body Weight 138 Recent Weight Change Yes Weight Status Overweight GI Symptoms GI Symptoms Nausea Vomitting Food Allergies No Cultural/Ethnic/Mosque Belief No cultural or restorationist beliefs reported. Usual diet at home Regular, one meal a day Skin Integrity/Comment: Shine 23. Skin intact. Current %PO Fair (50-74%) Estimated Nutritional Goals BEE in Kcals: Using Current wt Calories/Kcals/Kg Based on current wt 71.9 kg with consideration of overwt status, sepsis Kcals Calculated 6946-1141 kcals/day (25-30 kcals/kg) Protein: Using Current wt Protein g/kg: Based on current wt 71.9 kg with consideration of overwt status, sepsis Protein Calculated 89-93 gm/day (1.2-1.3 gm/kg) renal labs improving Fluid: ml Per MD/DO Nutritional Problem 2. Problem Problem Severe protein-calorie malnutrition related to Etiology inadequate oral intake as evidenced by Signs/Symptoms: significant 6% body wt loss in one month, dietary recall reveals less than 75% of estimated nutritional needs met x 2 years. 1. Problem Problem Altered nutrition-related laboratory values related to Etiology inconsistent carbohydrate intake, vomiting as evidenced by Signs/Symptoms: admitting glucose 529 mg/dl and A1C 15.9%. Malnutrition Alert Food and Nutrition Intake (Moderate) <75% est energy req 7days Interpretation of weight loss (Severe) >5% in 1 month Protein-Calorie Malnutrition Severe Is there a minimum of two criteria Yes selected? Query Text:Check all the applicable criteria. A minimum of two criteria are recommended for diagnosis of either severe or non-severe malnutrition. Malnutrition Related to Morbid Obesity Malnutrition related to morbid obesity No Intervention/Recommendation Recommendations by RD Dietary Education by RD1 Comments 1. Recommend CCHO-75 GM, low sodium diet to better meet protein needs. 2. Educate pt on consistent oral intake every 4-6 hours for glycemic regimen. Discussed food options that will be easier to consume with schedule and GI tolerance. Also discussed sitting up or walking for at least 30 minutes after eating to prevent reflux. Expected Outcomes/Goals Expected Outcomes/Goals 1. Blood glucose will trend towards desired parameters. 2. Pt will consume at least 75 % of meals consistently. Physician Parameters for PEM Serum Albumin (g/dl) 3.5 - 5.0 (Normal)
--- NOTE | 2016-10-20 14:52 | Cardiology ---
10/18/[address] Nam. M-MODE ECHOCARDIOGRAM: Mitral valve, anterior leaflet of the mitral valve shows normal excursion, EF velocity. Posterior leaflet of the mitral valve shows normal excursion. Left ventricular posterior wall shows increased thickness, normal excursion. Interventricular septum shows increased thickness, normal excursion, hypertrophy of the left ventricle, ejection fraction 60%. Left atrium normal. Aortic root shows normal dimension, normal excursion of aortic leaflets. CONCLUSION: Hypertrophy of the left ventricle, ejection fraction 60%. 2D ECHO: Long axis view showed normal sized left ventricle with hypertrophy of the left ventricle. Left atrium normal. Aortic root shows normal dimension, normal excursion of aortic leaflets. Short axis view of mitral valve normal. Short axis view of aortic valve normal. Apical four chamber view showed normal sized left ventricle with hypertrophy of the left ventricle. Left atrium normal. Right ventricular cavity, right atrium normal, no pericardial effusion. CONCLUSION: Hypertrophy of the left ventricle, ejection fraction 60%. Doppler study shows prominent A wave consistent with poor compliance of left ventricle, trace tricuspid regurgitation. [facility]# [id number]
[2016-10-20] MEDS: Insulin Detemir 100 units/mL 10mL Vial SUBQ SCH (21:30)
--- NOTE | 2016-10-20 22:49 | Admit Criteria Form ---
Admit Criteria Forms - Admit Criteria Diagnosis: SEPSIS and OTHER FEBRILE ILLNESS, W/O FOCAL INFECTION Clinical Indications for Admission to Inpatient Care ( Place 'X' for any and all applicable criteria): Admission is indicated for ANY ONE of the following (1)(2)(3)(4): [ ] I. Bacteremia [ ]II. Suspected or identified specific infection requiring hospitalization (eg, meningitis, endocarditis) [ ]III. Hemodynamic instability [ ]IV. Altered mental status [ ]V. Failure or unavailability of outpatient antimicrobial treatment [ ]. Hypoxemia [ ]VII. Seizures [ ]VIII. High-risk febrile neutropenia [ ]IX. Need for parenteral antibiotic in patient who is likely to abuse vascular access device (eg, injection drug user) [A](7) [ ]X. Temperature greater than 104.9 degrees F (40.5 degrees C) (oral) [X ]XI. Inpatient admission required rather than observation care because of ANY ONE of the following: [ ]1) Specific infection identified that is too severe for outpatient treatment or observation care trial [X ]2) Metabolic disorder (eg, hypoglycemia, hyperglycemia, metabolic acidosis) that is severe or persistent [ ]3) Temperature greater than 103.1 degrees F (39.5 degrees C) ( oral) that is not responsive to observation care treatment [ ]4) IV fluid to replace significant ongoing (eg, for over 24 hours) losses (> 3 L/m2 per day) [ ]5) Supplemental oxygen or respiratory treatments for over 24 hours that is performable only in acute inpatient setting [ ]6) Parenteral nutrition regimen need that must be implemented on inpatient basis [ ]7) Strict or protective (eg, laminar flow) isolation [ ]8) Other condition, treatment or monitoring requiring inpatient admission Extended stay beyond goal length of stay may be needed for(1)(3) [ ]a) Sepsis or septic shock(22) [ ]b) Positive blood cultures [ ]c) Insufficient oral intake [ ]d) High-risk febrile neutropenia(29)(30) [ ]e) Continued fever and clinical instability [ ]f) Clinically active comorbid illness (e.g,heart failure, renal failure , diabetes) The original [employer] content created by [employer] has been revised. The portions of the content which have been revised are identified through the use of italic text or in bold, and [employer] has neither reviewed nor approved the modified material. All other unmodified content is copyright [facility]. Please see references footnoted in the original [facility] edition 2016 Admit Criteria Met?: Yes
[2016-10-21 05:07] LABS: % BASOPHILS 0.3 % (0.0-2.0); % EOSINOPHILS 3.4 % (0.0-5.0); % LYMPHOCYTES 31.6 % (20.0-50.0); % MONOCYTES 6.8 % (2.0-10.0); % NEUTROPHILS 57.9 % (40.0-80.0); HEMATOCRIT 31.8 % (35.0-45.0); HEMOGLOBIN 10.8 gm/dL (11.7-15.5); MEAN CELL VOLUME 83.1 fl (81-100); MEAN CORPUSCULAR HEMOGLOBIN 28.3 pg (27.0-31.0); MEAN CORPUSCULAR HGB CONC 34.1 pg (28.0-36.0); NEUTROPHILE ABSOLUTE 5.6 Th/cmm (1.8-8.0); PLATELET COUNT 339 Th/cmm (150-400); RED BLOOD COUNT 3.83 Mil/cmm (3.80-5.10); RED CELL DISTRIBUTION WIDTH 11.1 % (11.5-20.0)
[2016-10-21 05:18] LABS: ANION GAP 8.8 (7.0-16.0); BUN/CREATININE RATIO 5.6; CALCIUM SERUM 8.9 mg/dL (8.6-10.3); CARBON DIOXIDE 21.7 mEq/L (21.0-31.0); CREATININE - SERUM 1.8 mg/dL (0.6-1.2); POTASSIUM SERUM 3.5 mEq/L (3.5-5.1)
[2016-10-21 05:38] LABS: WHITE BLOOD COUNT 9.5 Th/cmm (4.8-10.8)
[2016-10-21] MEDS: INSULIN ASPART SLIDING SCALE 100 UNITS/ML UNIT SUBQ SCH ×4 (06:37→21:15)
[2016-10-21] MEDS: Pantoprazole 40 mg/Packet PO SCH (08:27)
[2016-10-21] MEDS: Aspirin 81mg Chewable Tab PO SCH (08:28)
--- NOTE | 2016-10-21 10:06 | General Progress Note ---
Subjective - Review of Systems Service Date: 10/21/16 Subjective: stiil have gastric pain immediately after swallowing food followed by N/V Objective - Results Result Diagrams: 10/21/16 04:00 10/21/16 04:00 Recent Labs: Laboratory Last Values WBC 9.5 Th/cmm (4.8-10.8) D 10/21/16 04:00 RBC 3.83 Mil/cmm (3.80-5.10) 10/21/16 04:00 Hgb 10.8 gm/dL (11.7-15.5) L 10/21/16 04:00 Hct 31.8 % (35.0-45.0) L 10/21/16 04:00 MCV 83.1 fl (81-100) 10/21/16 04:00 MCH 28.3 pg (27.0-31.0) 10/21/16 04:00 MCHC Differential 34.1 pg (28.0-36.0) 10/21/16 04:00 RDW 11.1 % (11.5-20.0) L 10/21/16 04:00 Plt Count 339 Th/cmm (150-400) 10/21/16 04:00 MPV 8.0 fl 10/21/16 04:00 Neutrophils % 57.9 % (40.0-80.0) 10/21/16 04:00 Lymphocytes % 31.6 % (20.0-50.0) 10/21/16 04:00 Monocytes % 6.8 % (2.0-10.0) 10/21/16 04:00 Eosinophils % 3.4 % (0.0-5.0) 10/21/16 04:00 Basophils % 0.3 % (0.0-2.0) 10/21/16 04:00 Eos Smear Source URINE 10/19/16 19:45 Eos Smear Total Cells NONE SEEN (NONE SEEN) 10/19/16 19:45 Sodium 135 mEq/L (136-145) L 10/21/16 04:00 Potassium 3.5 mEq/L (3.5-5.1) 10/21/16 04:00 Chloride 108 mEq/L (98-107) H 10/21/16 04:00 Carbon Dioxide 21.7 mEq/L (21.0-31.0) 10/21/16 04:00 Anion Gap 8.8 (7.0-16.0) 10/21/16 04:00 BUN 10 mg/dL (7-25) 10/21/16 04:00 Creatinine 1.8 mg/dL (0.6-1.2) H 10/21/16 04:00 Est GFR ( Amer) 37.4 ml/min (>90) 10/21/16 04:00 Est GFR (Non-Af Amer) 30.9 ml/min 10/21/16 04:00 BUN/Creatinine Ratio 5.6 10/21/16 04:00 Glucose 93 mg/dL (70-105) 10/21/16 04:00 POC Glucose 106 MG/DL (70 - 105) H 10/21/16 06:35 Hemoglobin A1c % 15.9 % (4.0-6.0) H 10/17/16 15:34 Whole Bld Lactic Acid 2.16 mmol/L (0.60-1.99) H* 10/17/16 17:38 Uric Acid 3.6 mg/dL (2.3-6.6) 10/19/16 05:10 Calcium 8.9 mg/dL (8.6-10.3) 10/21/16 04:00 Phosphorus 3.7 mg/dL (2.5-5.0) 10/20/16 05:28 Magnesium 2.0 mg/dL (1.9-2.7) 10/20/16 05:28 Total Bilirubin 0.6 mg/dL (0.3-1.0) 10/17/16 15:34 AST 13 U/L (13-39) 10/17/16 15:34 ALT 12 U/L (7-52) 10/17/16 15:34 Alkaline Phosphatase 80 U/L (34-104) 10/17/16 15:34 Troponin I 0.01 ng/mL (0.01-0.05) 10/17/16 15:34 Total Protein 6.7 gm/dL (6.0-8.3) 10/17/16 15:34 Albumin 3.7 gm/dL (3.7-5.3) 10/17/16 15:34 Globulin 3.0 gm/dL 10/17/16 15:34 Albumin/Globulin Ratio 1.2 (1.0-1.8) 10/17/16 15:34 Amylase 57 U/L (29-103) 10/17/16 15:34 Lipase 32 U/L (11-82) 10/17/16 15:34 TSH 1.47 uIU/ml (0.34-5.60) 10/19/16 05:10 Urine Source RANDOM 10/17/16 19:02 Urine Color YELLOW 10/17/16 19:02 Urine Clarity CLEAR (CLEAR) 10/17/16 19:02 Urine pH 6.0 (4.6 - 8.0) 10/17/16 19:02 Ur Specific Armstrong 1.010 (1.005-1.030) 10/17/16 19:02 Urine Protein 100 mg/dL (NEGATIVE) H 10/17/16 19:02 Urine Glucose (UA) >=1000 mg/dL (NEGATIVE) H 10/17/16 19:02 Urine Ketones NEGATIVE mg/dL (NEGATIVE) 10/17/16 19:02 Urine Blood TRACE (NEGATIVE) 10/17/16 19:02 Urine Nitrate NEGATIVE (NEGATIVE) 10/17/16 19:02 Urine Bilirubin NEGATIVE (NEGATIVE) 10/17/16 19:02 Urine Urobilinogen 0.2 E.U./dL (0.2 - 1.0) 10/17/16 19:02 Ur Leukocyte Esterase NEGATIVE (NEGATIVE) 10/17/16 19:02 Urine RBC 2-5 /hpf (0-5) 10/17/16 19:02 Urine WBC NONE SEEN /hpf (0-5) 10/17/16 19:02 Ur Epithelial Cells NONE SEEN /lpf (FEW) 10/17/16 19:02 Urine Bacteria NONE SEEN /hpf (NONE SEEN) 10/17/16 19:02 Ur Random Sodium 120 mmol/L 10/19/16 19:45 Urine Creatinine 25.5 mg/dl (Not Estab.) 10/19/16 19:45 Urine Microalbumin 670.5 ug/mL (Not Estab.) 10/19/16 19:45 Microalb/Creat Ratio 2629.4 mg/g creat (0.0-30.0) H 10/19/16 19:45 Vancomycin Trough 14.0 ug/mL (10-20) 10/21/16 04:00 Serum Ketones NEGATIVE (NEGATIVE) 10/17/16 15:34 - Physical Exam Vitals and I&O: Vital Signs Temp 98.6 F 10/21/16 08:00 Pulse 66 10/21/16 08:28 Resp 18 10/21/16 08:00 BP 151/71 10/21/16 08:28 Pulse Ox 99 10/21/16 08:00 Intake & Output 10/20/16 10/21/16 10/21/16 18:59 06:59 18:59 Intake Total 505 100 250 Balance 505 100 250 Weight (lbs) 71.668 kg 72.303 kg Intake: Intake, IV Amount 505 100 250 Piperacillin Sodium/ 50 100 Tazobact 3.375 gm In Sodium Chloride 0.9% 50 ml @ 100 mls/hr IV Q8HR [facility] Rx#:[id number] Sodium Chloride 0.9% 1, 205 000 ml @ 60 mls/hr IV . [id number] [facility] Rx#:[id number] Vancomycin HCl 750 mg In 250 250 Sodium Chloride 0.9% 250 ml @ 165 mls/hr IV Q12H [facility] Rx#:[id number] Other: # Voids 2 # Bowel Movements 1 Active Medications: Current Medications Aspirin (Aspirin Chewable) 81 mg PO DAILY [facility] Stop: 12/18/16 08:59 Last Admin: 10/21/16 08:28 Dose: 81 mg Piperacillin Sod/Tazobactam (Sod 3.375 gm/ Sodium Chloride) 50 mls @ 100 mls/ hr IV Q8HR [facility] Stop: 12/16/16 20:59 Last Infusion: 10/21/16 04:43 Dose: Infused Vancomycin HCl 750 mg/ Sodium (Chloride) 250 mls @ 165 mls/hr IV Q12H [facility] Stop: 12/18/16 16:59 Last Infusion: 10/21/16 08:18 Dose: Infused Sodium Chloride (Nacl 0.9%) 1,000 mls @ 60 mls/hr IV .[id number] [facility] Stop: 12/16/16 18:18 Last Infusion: 10/20/16 18:23 Dose: 60 mls/hr Insulin Aspart (Novolog Insulin Sliding Scale) 0 units SUBQ ACHS [facility] PRN Reason: Protocol Stop: 12/16/16 20:59 Last Admin: 10/21/16 06:37 Dose: Not Given Insulin Detemir (Levemir Insulin) 24 units SUBQ HS [facility] PRN Reason: Protocol Stop: 12/18/16 20:59 Last Admin: 10/20/16 21:30 Dose: 24 units Losartan Potassium (Cozaar) 25 mg PO DAILY [facility] Stop: 12/19/16 13:59 Last Admin: 10/21/16 08:28 Dose: 25 mg Metoprolol Tartrate (Lopressor) 50 mg PO DAILY [facility] Stop: 12/18/16 08:59 Last Admin: 10/21/16 08:27 Dose: 50 mg Miscellaneous (Vancomycin Iv Per Pharmacy) 1 ea MC PRN PRN PRN Reason: PROTOCOL Stop: 12/17/16 07:22 Morphine Sulfate (Morphine) 2 mg IVP Q4HR PRN PRN Reason: Abdominal Pain Stop: 12/17/16 14:35 Last Admin: 10/20/16 11:30 Dose: 2 mg Ondansetron HCl (Zofran) 4 mg IV Q6H PRN PRN Reason: Nausea / Vomiting Stop: 12/18/16 17:27 Last Admin: 10/19/16 18:23 Dose: 4 mg Pantoprazole Sodium (Protonix) 40 mg PO DAILY [facility] Stop: 12/18/16 14:29 Last Admin: 10/21/16 08:27 Dose: 40 mg Simethicone (Mylicon) 80 mg PO QID PRN PRN Reason: Gas Stop: 12/19/16 13:51 General: Alert, Moderate distress HEENT: Atraumatic, PERRLA, EOMI Neck: Supple, +2 carotid pulse wo bruit Cardiovascular: Regular rate, Normal S1, Normal S2 Lungs: Clear to auscultation Abdomen: Bowel sounds, Soft, Tender (hyperactive), Other Extremities: no Edema Neurological: Sensation intact Skin: no Rash Psych/Mental Status: Mood NL Assessment/Plan - Problem List Patient Problems: All Active Problems FEVER WITH POSTERIOR BODY ACHES (Acute) - Assessment Assessment: ALEENA on CKD Nonspecific gastric pain radiating to back ? erosive gastritis, PUD Lower ext. pain possible DM neuropathy Type 2 DM ooc w/ CKD HTN w/ CKD - Plan Plan: Lab - Result Diagrams 10/19/16 05:10 10/19/16 05:10 Current Medications Aspirin (Aspirin Chewable) 81 mg PO DAILY [facility] Stop: 12/18/16 08:59 Last Admin: 10/19/16 11:29 Dose: Not Given Piperacillin Sod/Tazobactam (Sod 3.375 gm/ Sodium Chloride) 50 mls @ 100 mls/ hr IV Q8HR [facility] Stop: 12/16/16 20:59 Last Admin: 10/19/16 13:14 Dose: 100 mls/hr Sodium Chloride (Nacl 0.9%) 1,000 mls @ 125 mls/hr IV .Q8H [facility] Stop: 12/16/16 18:18 Last Admin: 10/19/16 14:06 Dose: 125 mls/hr Vancomycin HCl 0.75 gm/ Sodium (Chloride) 250 mls @ 165 mls/hr IV Q24HR@1700 [facility] Stop: 12/17/16 16:59 Last Admin: 10/18/16 16:08 Dose: 165 mls/hr Insulin Aspart (Novolog Insulin Sliding Scale) 0 units SUBQ ACHS [facility] PRN Reason: Protocol Stop: 12/16/16 20:59 Last Admin: 10/19/16 12:23 Dose: 6 units Insulin Aspart (Novolog) 10 units SUBQ TID [facility] Stop: 12/17/16 20:59 Last Admin: 10/19/16 11:29 Dose: Not Given Metoprolol Tartrate (Lopressor) 50 mg PO DAILY [facility] Stop: 12/18/16 08:59 Last Admin: 10/19/16 11:29 Dose: Not Given Miscellaneous (Vancomycin Iv Per Pharmacy) 1 ea MC PRN PRN PRN Reason: PROTOCOL Stop: 12/17/16 07:22 Morphine Sulfate (Morphine) 2 mg IVP Q4HR PRN PRN Reason: Abdominal Pain Stop: 12/17/16 14:35 Last Admin: 10/19/16 08:47 Dose: 2 mg Kidney fnc stable w/ Cr. of 1.8 continue ivf but decrease rate replace Mg, P04 add PPI, simethicone BS still elevated, increase Detemir start Losartan for proteinuria consider GI consult for possible EGD Nutritional Asmnt/Malnutr-PDOC - Dietary Evaluation Malnutrition Findings (Please click <Entered> for more info): Nutritional Asmnt/Malnutrition Start: 10/19/16 14: 26 Text: Status: Complete Freq: Document 10/19/16 14:26 [email or web address] (Rec: 10/19/16 14:38 [id number] Nutritional Asmnt/Malnutrition Patient General Information Nutritional Screening Consult Diagnosis High lactic acid, acute sepsis Pertinent Medical Hx/Surgical Hx DM, hx SCT with ablation therapy. Subjective Information Nutrition Consult for high blood sugar received and completed. Pt is a 56-year-old female admitted with chief complaint of fever, body aches , and abdominal pain for 2 days. Pt was awake and alert. Pt reports working night shifts, and she only eats once a day around 1400. Pt drinks coffee, water, and tea throughout her work hours. RD discussed diabetes management with pt and encouraged consistent meal intake for glycemic control. Pt verbalized understanding. RD discussed alternative food ideas that she can tolerate, such as yogurts, smoothies, and nutrition oral supplements . RD weighed pt today with extra blankets removed: 158.2# /71.9 kg. Current Diet Order/ Nutrition Support CCHO-75 GM, renal Patient / S.O Indicated Pertinent Medications Novolog, Morphine, Piperacillin Sodium, NaCl 0.9% , Vancomycin Pertinent Labs (10/17) Glucose 529H, A1C 15.9H (10/19) Creatinine 2H ( improving), Glucose (fasting) 175H, POC Glucose 287H, Phosphorous 2.4L, Magnesium 1. 7L Nutritional Hx/Data Height 1.6 m Height (Calculated Centimeters) 160.0 Current Weight (lbs) 71.758 kg Weight (Calculated Kilograms) 71.8 Weight (Calculated Grams) 20144.3 Usual body Weight (lbs) 164 % Usual Body Weight 96 [place] Body Weight 115 % [place] Body Weight 138 Recent Weight Change Yes Weight Status Overweight GI Symptoms GI Symptoms Nausea Vomitting Food Allergies No Cultural/Ethnic/[employer] Belief No cultural or religion beliefs reported. Usual diet at home Regular, one meal a day Skin Integrity/Comment: Shine 23. Skin intact. Current %PO Fair (50-74%) Estimated Nutritional Goals BEE in Kcals: Using Current wt Calories/Kcals/Kg Based on current wt 71.9 kg with consideration of overwt status, sepsis Kcals Calculated 7579-2187 kcals/day (25-30 kcals/kg) Protein: Using Current wt Protein g/kg: Based on current wt 71.9 kg with consideration of overwt status, sepsis Protein Calculated 89-93 gm/day (1.2-1.3 gm/kg) renal labs improving Fluid: ml Per MD/DO Nutritional Problem 2. Problem Problem Severe protein-calorie malnutrition related to Etiology inadequate oral intake as evidenced by Signs/Symptoms: significant 6% body wt loss in one month, dietary recall reveals less than 75% of estimated nutritional needs met x 2 years. 1. Problem Problem Altered nutrition-related laboratory values related to Etiology inconsistent carbohydrate intake, vomiting as evidenced by Signs/Symptoms: admitting glucose 529 mg/dl and A1C 15.9%. Malnutrition Alert Food and Nutrition Intake (Moderate) <75% est energy req 7days Interpretation of weight loss (Severe) >5% in 1 month Protein-Calorie Malnutrition Severe Is there a minimum of two criteria Yes selected? Query Text:Check all the applicable criteria. A minimum of two criteria are recommended for diagnosis of either severe or non-severe malnutrition. Malnutrition Related to Morbid Obesity Malnutrition related to morbid obesity No Intervention/Recommendation Recommendations by RD Dietary Education by RD1 Comments 1. Recommend CCHO-75 GM, low sodium diet to better meet protein needs. 2. Educate pt on consistent oral intake every 4-6 hours for glycemic regimen. Discussed food options that will be easier to consume with schedule and GI tolerance. Also discussed sitting up or walking for at least 30 minutes after eating to prevent reflux. Expected Outcomes/Goals Expected Outcomes/Goals 1. Blood glucose will trend towards desired parameters. 2. Pt will consume at least 75 % of meals consistently. Physician Parameters for PEM Serum Albumin (g/dl) 3.5 - 5.0 (Normal)
[2016-10-21] MEDS: Morphine Sulfate 4 mg/mL 1mL Syr IVP PRN (10:58)
[2016-10-21] MEDS: Sodium Chloride 0.9% 1,000 ML IV SCH (12:06)
--- NOTE | 2016-10-21 14:44 | General Progress Note ---
Subjective - Review of Systems Events since last encounter: patient continues to c/o abd pain Subjective: awake, alert, abdominal pain has slightly improved Objective - Results Result Diagrams: 10/21/16 04:00 10/21/16 04:00 Recent Labs: Laboratory Last Values WBC 9.5 Th/cmm (4.8-10.8) D 10/21/16 04:00 RBC 3.83 Mil/cmm (3.80-5.10) 10/21/16 04:00 Hgb 10.8 gm/dL (11.7-15.5) L 10/21/16 04:00 Hct 31.8 % (35.0-45.0) L 10/21/16 04:00 MCV 83.1 fl (81-100) 10/21/16 04:00 MCH 28.3 pg (27.0-31.0) 10/21/16 04:00 MCHC Differential 34.1 pg (28.0-36.0) 10/21/16 04:00 RDW 11.1 % (11.5-20.0) L 10/21/16 04:00 Plt Count 339 Th/cmm (150-400) 10/21/16 04:00 MPV 8.0 fl 10/21/16 04:00 Neutrophils % 57.9 % (40.0-80.0) 10/21/16 04:00 Lymphocytes % 31.6 % (20.0-50.0) 10/21/16 04:00 Monocytes % 6.8 % (2.0-10.0) 10/21/16 04:00 Eosinophils % 3.4 % (0.0-5.0) 10/21/16 04:00 Basophils % 0.3 % (0.0-2.0) 10/21/16 04:00 Eos Smear Source URINE 10/19/16 19:45 Eos Smear Total Cells NONE SEEN (NONE SEEN) 10/19/16 19:45 Sodium 135 mEq/L (136-145) L 10/21/16 04:00 Potassium 3.5 mEq/L (3.5-5.1) 10/21/16 04:00 Chloride 108 mEq/L (98-107) H 10/21/16 04:00 Carbon Dioxide 21.7 mEq/L (21.0-31.0) 10/21/16 04:00 Anion Gap 8.8 (7.0-16.0) 10/21/16 04:00 BUN 10 mg/dL (7-25) 10/21/16 04:00 Creatinine 1.8 mg/dL (0.6-1.2) H 10/21/16 04:00 Est GFR ( Amer) 37.4 ml/min (>90) 10/21/16 04:00 Est GFR (Non-Af Amer) 30.9 ml/min 10/21/16 04:00 BUN/Creatinine Ratio 5.6 10/21/16 04:00 Glucose 93 mg/dL (70-105) 10/21/16 04:00 POC Glucose 301 MG/DL (70 - 105) H 10/21/16 11:07 Hemoglobin A1c % 15.9 % (4.0-6.0) H 10/17/16 15:34 Whole Bld Lactic Acid 2.16 mmol/L (0.60-1.99) H* 10/17/16 17:38 Uric Acid 3.6 mg/dL (2.3-6.6) 10/19/16 05:10 Calcium 8.9 mg/dL (8.6-10.3) 10/21/16 04:00 Phosphorus 3.7 mg/dL (2.5-5.0) 10/20/16 05:28 Magnesium 2.0 mg/dL (1.9-2.7) 10/20/16 05:28 Total Bilirubin 0.6 mg/dL (0.3-1.0) 10/17/16 15:34 AST 13 U/L (13-39) 10/17/16 15:34 ALT 12 U/L (7-52) 10/17/16 15:34 Alkaline Phosphatase 80 U/L (34-104) 10/17/16 15:34 Troponin I 0.01 ng/mL (0.01-0.05) 10/17/16 15:34 Total Protein 6.7 gm/dL (6.0-8.3) 10/17/16 15:34 Albumin 3.7 gm/dL (3.7-5.3) 10/17/16 15:34 Globulin 3.0 gm/dL 10/17/16 15:34 Albumin/Globulin Ratio 1.2 (1.0-1.8) 10/17/16 15:34 Amylase 57 U/L (29-103) 10/17/16 15:34 Lipase 32 U/L (11-82) 10/17/16 15:34 TSH 1.47 uIU/ml (0.34-5.60) 10/19/16 05:10 Urine Source RANDOM 10/17/16 19:02 Urine Color YELLOW 10/17/16 19:02 Urine Clarity CLEAR (CLEAR) 10/17/16 19:02 Urine pH 6.0 (4.6 - 8.0) 10/17/16 19:02 Ur Specific [place] 1.010 (1.005-1.030) 10/17/16 19:02 Urine Protein 100 mg/dL (NEGATIVE) H 10/17/16 19:02 Urine Glucose (UA) >=1000 mg/dL (NEGATIVE) H 10/17/16 19:02 Urine Ketones NEGATIVE mg/dL (NEGATIVE) 10/17/16 19:02 Urine Blood TRACE (NEGATIVE) 10/17/16 19:02 Urine Nitrate NEGATIVE (NEGATIVE) 10/17/16 19:02 Urine Bilirubin NEGATIVE (NEGATIVE) 10/17/16 19:02 Urine Urobilinogen 0.2 E.U./dL (0.2 - 1.0) 10/17/16 19:02 Ur Leukocyte Esterase NEGATIVE (NEGATIVE) 10/17/16 19:02 Urine RBC 2-5 /hpf (0-5) 10/17/16 19:02 Urine WBC NONE SEEN /hpf (0-5) 10/17/16 19:02 Ur Epithelial Cells NONE SEEN /lpf (FEW) 10/17/16 19:02 Urine Bacteria NONE SEEN /hpf (NONE SEEN) 10/17/16 19:02 Ur Random Sodium 120 mmol/L 10/19/16 19:45 Urine Creatinine 25.5 mg/dl (Not Estab.) 10/19/16 19:45 Urine Microalbumin 670.5 ug/mL (Not Estab.) 10/19/16 19:45 Microalb/Creat Ratio 2629.4 mg/g creat (0.0-30.0) H 10/19/16 19:45 Vancomycin Trough 14.0 ug/mL (10-20) 10/21/16 04:00 Serum Ketones NEGATIVE (NEGATIVE) 10/17/16 15:34 - Physical Exam Vitals and I&O: Vital Signs Temp 97.7 F 10/21/16 11:44 Pulse 65 10/21/16 11:44 Resp 17 10/21/16 11:44 BP 137/83 10/21/16 11:44 Pulse Ox 98 10/21/16 11:44 Intake & Output 10/20/16 10/21/16 10/21/16 18:59 06:59 18:59 Intake Total 755 362 9853 Balance 263 794 3843 Weight (lbs) 71.668 kg 72.303 kg Intake: Intake, IV Amount 438 121 9786 Piperacillin Sodium/ 50 100 Tazobact 3.375 gm In Sodium Chloride 0.9% 50 ml @ 100 mls/hr IV Q8HR [facility] Rx#:[id number] Sodium Chloride 0.9% 1, 205 795 000 ml @ 60 mls/hr IV . [id number] [facility] Rx#:[id number] Vancomycin HCl 750 mg In 250 250 Sodium Chloride 0.9% 250 ml @ 165 mls/hr IV Q12H [facility] Rx#:[id number] Other: # Voids 2 # Bowel Movements 1 Active Medications: Current Medications Aspirin (Aspirin Chewable) 81 mg PO DAILY [facility] Stop: 12/18/16 08:59 Last Admin: 10/21/16 08:28 Dose: 81 mg Piperacillin Sod/Tazobactam (Sod 3.375 gm/ Sodium Chloride) 50 mls @ 100 mls/ hr IV Q8HR [facility] Stop: 12/16/16 20:59 Last Admin: 10/21/16 14:16 Dose: 100 mls/hr Vancomycin HCl 750 mg/ Sodium (Chloride) 250 mls @ 165 mls/hr IV Q12H [facility] Stop: 12/18/16 16:59 Last Infusion: 10/21/16 08:18 Dose: Infused Sodium Chloride (Nacl 0.9%) 1,000 mls @ 60 mls/hr IV .[id number] [facility] Stop: 12/16/16 18:18 Last Admin: 10/21/16 12:06 Dose: 60 mls/hr Insulin Aspart (Novolog Insulin Sliding Scale) 0 units SUBQ ACHS [facility] PRN Reason: Protocol Stop: 12/16/16 20:59 Last Admin: 10/21/16 12:06 Dose: 8 units Insulin Detemir (Levemir Insulin) 24 units SUBQ HS [facility] PRN Reason: Protocol Stop: 12/18/16 20:59 Last Admin: 10/20/16 21:30 Dose: 24 units Losartan Potassium (Cozaar) 25 mg PO DAILY [facility] Stop: 12/19/16 13:59 Last Admin: 10/21/16 08:28 Dose: 25 mg Metoprolol Tartrate (Lopressor) 50 mg PO DAILY [facility] Stop: 12/18/16 08:59 Last Admin: 10/21/16 08:27 Dose: 50 mg Miscellaneous (Vancomycin Iv Per Pharmacy) 1 ea [facility] PRN PRN PRN Reason: PROTOCOL Stop: 12/17/16 07:22 Morphine Sulfate (Morphine) 2 mg IVP Q4HR PRN PRN Reason: Abdominal Pain Stop: 12/17/16 14:35 Last Admin: 10/21/16 10:58 Dose: 2 mg Ondansetron HCl (Zofran) 4 mg IV Q6H PRN PRN Reason: Nausea / Vomiting Stop: 12/18/16 17:27 Last Admin: 10/19/16 18:23 Dose: 4 mg Pantoprazole Sodium (Protonix) 40 mg PO DAILY [facility] Stop: 12/18/16 14:29 Last Admin: 10/21/16 08:27 Dose: 40 mg Simethicone (Mylicon) 80 mg PO QID PRN PRN Reason: Gas Stop: 12/19/16 13:51 General: Alert, Moderate distress HEENT: Atraumatic, PERRLA, EOMI Neck: Supple, +2 carotid pulse wo bruit Cardiovascular: Regular rate, Normal S1, Normal S2 Lungs: Clear to auscultation Abdomen: Bowel sounds, Soft, Tender (hyperactive), Other Extremities: no Edema Neurological: Sensation intact Skin: no Rash Psych/Mental Status: Mood NL Assessment/Plan - Problem List Patient Problems: All Active Problems FEVER WITH POSTERIOR BODY ACHES (Acute) Nutritional Asmnt/Malnutr-PDOC - Dietary Evaluation Malnutrition Findings (Please click <Entered> for more info): Nutritional Asmnt/Malnutrition Start: 10/19/16 14: 26 Text: Status: Complete Freq: Document 10/19/16 14:26 [facility] (Rec: 10/19/16 14:38 [facility] [id number]) Nutritional Asmnt/Malnutrition Patient General Information Nutritional Screening Consult Diagnosis High lactic acid, acute sepsis Pertinent Medical Hx/Surgical Hx DM, hx SCT with ablation therapy. Subjective Information Nutrition Consult for high blood sugar received and completed. Pt is a 56-year-old female admitted with chief complaint of fever, body aches , and abdominal pain for 2 days. Pt was awake and alert. Pt reports working night shifts, and she only eats once a day around 1400. Pt drinks coffee, water, and tea throughout her work hours. RD discussed diabetes management with pt and encouraged consistent meal intake for glycemic control. Pt verbalized understanding. RD discussed alternative food ideas that she can tolerate, such as yogurts, smoothies, and nutrition oral supplements . RD weighed pt today with extra blankets removed: 158.2# /71.9 kg. Current Diet Order/ Nutrition Support CCHO-75 GM, renal Patient / S.O Indicated Pertinent Medications Novolog, Morphine, Piperacillin Sodium, NaCl 0.9% , Vancomycin Pertinent Labs (10/17) Glucose 529H, A1C 15.9H (10/19) Creatinine 2H ( improving), Glucose (fasting) 175H, POC Glucose 287H, Phosphorous 2.4L, Magnesium 1. 7L Nutritional Hx/Data Height 1.6 m Height (Calculated Centimeters) 160.0 Current Weight (lbs) 71.758 kg Weight (Calculated Kilograms) 71.8 Weight (Calculated Grams) 28412.3 Usual body Weight (lbs) 164 % Usual Body Weight 96 [place] Body Weight 115 % [place] Body Weight 138 Recent Weight Change Yes Weight Status Overweight GI Symptoms GI Symptoms Nausea Vomitting Food Allergies No Cultural/Ethnic/Mandaen Belief No cultural or pentecostal beliefs reported. Usual diet at home Regular, one meal a day Skin Integrity/Comment: Shine 23. Skin intact. Current %PO Fair (50-74%) Estimated Nutritional Goals BEE in Kcals: Using Current wt Calories/Kcals/Kg Based on current wt 71.9 kg with consideration of overwt status, sepsis Kcals Calculated 3810-4678 kcals/day (25-30 kcals/kg) Protein: Using Current wt Protein g/kg: Based on current wt 71.9 kg with consideration of overwt status, sepsis Protein Calculated 89-93 gm/day (1.2-1.3 gm/kg) renal labs improving Fluid: ml Per MD/DO Nutritional Problem 2. Problem Problem Severe protein-calorie malnutrition related to Etiology inadequate oral intake as evidenced by Signs/Symptoms: significant 6% body wt loss in one month, dietary recall reveals less than 75% of estimated nutritional needs met x 2 years. 1. Problem Problem Altered nutrition-related laboratory values related to Etiology inconsistent carbohydrate intake, vomiting as evidenced by Signs/Symptoms: admitting glucose 529 mg/dl and A1C 15.9%. Malnutrition Alert Food and Nutrition Intake (Moderate) <75% est energy req 7days Interpretation of weight loss (Severe) >5% in 1 month Protein-Calorie Malnutrition Severe Is there a minimum of two criteria Yes selected? Query Text:Check all the applicable criteria. A minimum of two criteria are recommended for diagnosis of either severe or non-severe malnutrition. Malnutrition Related to Morbid Obesity Malnutrition related to morbid obesity No Intervention/Recommendation Recommendations by RD Dietary Education by RD1 Comments 1. Recommend CCHO-75 GM, low sodium diet to better meet protein needs. 2. Educate pt on consistent oral intake every 4-6 hours for glycemic regimen. Discussed food options that will be easier to consume with schedule and GI tolerance. Also discussed sitting up or walking for at least 30 minutes after eating to prevent reflux. Expected Outcomes/Goals Expected Outcomes/Goals 1. Blood glucose will trend towards desired parameters. 2. Pt will consume at least 75 % of meals consistently. Physician Parameters for PEM Serum Albumin (g/dl) 3.5 - 5.0 (Normal)
[2016-10-21] MEDS ORDERED: Morphine Sulfate 2 mg/mL 1mL Syr IVP PRN (16:17)
[2016-10-21] MEDS: Insulin Detemir 100 units/mL 10mL Vial SUBQ SCH (21:46)
[2016-10-22 05:34] LABS: INR 0.88 (0.5-1.4)
[2016-10-22] MEDS: INSULIN ASPART SLIDING SCALE 100 UNITS/ML UNIT SUBQ SCH ×4 (06:34→21:02)
--- NOTE | 2016-10-22 08:56 | Consultation ---
DATE OF CONSULTATION: 10/21/2016 CONSULTING PHYSICIAN: Dr. Nam. REASON FOR CONSULTATION: Abdominal pain. HISTORY OF PRESENT ILLNESS: The patient is a 56-year-old female with a past medical history significant for type 2 diabetes and hypertension who presents with about five days of epigastric and abdominal pain. The patient notes that her epigastric pain began last Wednesday and has steadily gotten worse. She notes that the pain is located in the epigastric region and then goes to her back and then into her shoulders. This is exacerbated by eating any type of food. She also thinks that food might get stuck either her stomach or lower esophagus. She has got nausea after eating and has vomited twice, although notes that the vomit was just yellow liquid in color. She reports that she did have a bowel movement today and that it was kind of a black mushy color in consistency, although she had been constipated for 2 days previously. She did undergo a CT scan upon admission to the Emergency Room, which showed that there was stool throughout the colon and rectum and was otherwise normal. She notes that she has never undergone a colonoscopy or endoscopy. PAST MEDICAL HISTORY: Type 2 diabetes and hypertension. PAST SURGICAL HISTORY: Appendectomy in 1990, cholecystectomy in 2012, remote history of , cardiac ablation for SVT. FAMILY HISTORY: She has had an uncle with stomach cancer. SOCIAL HISTORY: She denies any tobacco product use or alcohol use. ALLERGIES: No known drug allergies. REVIEW OF SYSTEMS: A 12-point review of systems was performed and is negative other than the pertinent positives mentioned in history of present illness. CURRENT MEDICATIONS: Include aspirin, insulin, losartan, Lopressor, vancomycin, morphine, Zofran, Protonix, and Zosyn. PHYSICAL EXAMINATION: VITAL SIGNS: Blood pressure is 138/70, pulse is 70 beats per minute, temperature 99.2, respiratory rate of 18, oxygen saturation 100% on room air. GENERAL: The patient is seen sitting upright in bed in mild distress. Alert and oriented x 3. HEENT: No scleral icterus. Pupils are equal and reactive. Extraocular muscles intact. Moist mucous membranes. NECK: No thyromegaly, no lymphadenopathy, no obvious JVD. CHEST: Clear to auscultation bilaterally. CARDIOVASCULAR: S1, S2 are normal. No extra sounds. ABDOMEN: Soft, tender to deep palpation in the epigastric region. There is no guarding, no rebound. Positive bowel sounds. No fluid wave. No distention. EXTREMITIES: No edema. Positive pulses. Full range of motion. NEUROLOGIC: Nonfocal. SKIN: No rashes, no jaundice. LABORATORY DATA: White count 9.5, hemoglobin 10.8, platelet count of 339. Sodium 135, potassium 3.5, BUN 10, creatinine 1.8. Her admission creatinine is 2.2. IMAGING: Abdomen and pelvis CT was performed on 10/19/2016, this was without contrast and showed normal size liver and spleen. Surgical consistent with prior cholecystectomy, normal pancreas. No significant bowel dilation. It was noted that there is a stool filled sigmoid colon and rectum. IMPRESSION: This is a 56-year-old female with past medical history significant for hypertension, type 2 diabetes, who presents with 5 days of epigastric pain. 1. Abdominal pain. 2. Constipation. 3. Black colored stool. 4. Chronic kidney disease. DISCUSSION: Given that the patient's pain is epigastric in nature and ongoing despite treatment with PPI and antibiotics, an upper endoscopy is not unreasonable. Her CT scan does show some stool in the rectum and sigmoid, although this was a noncontrast exam. I suspect that she likely has a degree of constipation that may be contributing to her symptoms as well. She has never had any sort of endoscopic exam thus far, thus she is overdue and will proceed tomorrow with EGD and colonoscopy. Possible etiologies include esophagitis, peptic ulcer disease, acid reflux, obstipation and pancreatitis. PLAN: Proceed with colonoscopy and endoscopy tomorrow in the GI lab. We will prep tonight with GoLYTELY. N.p.o. after midnight. We will add on a lipase to tomorrow's labs as well. Continue PPI therapy. Antibiotics as per primary. Thank you for allowing me to participate in the care of this patient. Please call with any further questions. JOB# [id number]
[2016-10-22] MEDS: Aspirin 81mg Chewable Tab PO SCH (09:42)
[2016-10-22] MEDS: Pantoprazole 40 mg/Packet PO SCH (09:45)
[2016-10-22] MEDS: Sodium Chloride 0.9% 1,000 ML IV SCH ×2 (10:14→16:24)
--- NOTE | 2016-10-22 10:27 | General Progress Note ---
Subjective - Review of Systems Events since last encounter: no distress patient awake mild abd pain Subjective: awake, alert, abdominal pain has slightly improved Objective - Results Result Diagrams: 10/21/16 04:00 10/21/16 04:00 Recent Labs: Laboratory Last Values WBC 9.5 Th/cmm (4.8-10.8) D 10/21/16 04:00 RBC 3.83 Mil/cmm (3.80-5.10) 10/21/16 04:00 Hgb 10.8 gm/dL (11.7-15.5) L 10/21/16 04:00 Hct 31.8 % (35.0-45.0) L 10/21/16 04:00 MCV 83.1 fl (81-100) 10/21/16 04:00 MCH 28.3 pg (27.0-31.0) 10/21/16 04:00 MCHC Differential 34.1 pg (28.0-36.0) 10/21/16 04:00 RDW 11.1 % (11.5-20.0) L 10/21/16 04:00 Plt Count 339 Th/cmm (150-400) 10/21/16 04:00 MPV 8.0 fl 10/21/16 04:00 Neutrophils % 57.9 % (40.0-80.0) 10/21/16 04:00 Lymphocytes % 31.6 % (20.0-50.0) 10/21/16 04:00 Monocytes % 6.8 % (2.0-10.0) 10/21/16 04:00 Eosinophils % 3.4 % (0.0-5.0) 10/21/16 04:00 Basophils % 0.3 % (0.0-2.0) 10/21/16 04:00 Eos Smear Source URINE 10/19/16 19:45 Eos Smear Total Cells NONE SEEN (NONE SEEN) 10/19/16 19:45 PT 9.0 SECONDS (9.5-11.5) L 10/22/16 04:45 INR 0.88 (0.5-1.4) 10/22/16 04:45 Sodium 135 mEq/L (136-145) L 10/21/16 04:00 Potassium 3.5 mEq/L (3.5-5.1) 10/21/16 04:00 Chloride 108 mEq/L (98-107) H 10/21/16 04:00 Carbon Dioxide 21.7 mEq/L (21.0-31.0) 10/21/16 04:00 Anion Gap 8.8 (7.0-16.0) 10/21/16 04:00 BUN 10 mg/dL (7-25) 10/21/16 04:00 Creatinine 1.8 mg/dL (0.6-1.2) H 10/21/16 04:00 Est GFR ( Amer) 37.4 ml/min (>90) 10/21/16 04:00 Est GFR (Non-Af Amer) 30.9 ml/min 10/21/16 04:00 BUN/Creatinine Ratio 5.6 10/21/16 04:00 Glucose 93 mg/dL (70-105) 10/21/16 04:00 POC Glucose 124 MG/DL (70 - 105) H 10/22/16 06:22 Hemoglobin A1c % 15.9 % (4.0-6.0) H 10/17/16 15:34 Whole Bld Lactic Acid 2.16 mmol/L (0.60-1.99) H* 10/17/16 17:38 Uric Acid 3.6 mg/dL (2.3-6.6) 10/19/16 05:10 Calcium 8.9 mg/dL (8.6-10.3) 10/21/16 04:00 Phosphorus 3.7 mg/dL (2.5-5.0) 10/20/16 05:28 Magnesium 2.0 mg/dL (1.9-2.7) 10/20/16 05:28 Total Bilirubin 0.6 mg/dL (0.3-1.0) 10/17/16 15:34 AST 13 U/L (13-39) 10/17/16 15:34 ALT 12 U/L (7-52) 10/17/16 15:34 Alkaline Phosphatase 80 U/L (34-104) 10/17/16 15:34 Troponin I 0.01 ng/mL (0.01-0.05) 10/17/16 15:34 Total Protein 6.7 gm/dL (6.0-8.3) 10/17/16 15:34 Albumin 3.7 gm/dL (3.7-5.3) 10/17/16 15:34 Globulin 3.0 gm/dL 10/17/16 15:34 Albumin/Globulin Ratio 1.2 (1.0-1.8) 10/17/16 15:34 Amylase 57 U/L (29-103) 10/17/16 15:34 Lipase 21 U/L (11-82) 10/22/16 04:45 TSH 1.47 uIU/ml (0.34-5.60) 10/19/16 05:10 Urine Source RANDOM 10/17/16 19:02 Urine Color YELLOW 10/17/16 19:02 Urine Clarity CLEAR (CLEAR) 10/17/16 19:02 Urine pH 6.0 (4.6 - 8.0) 10/17/16 19:02 Ur Specific [place] 1.010 (1.005-1.030) 10/17/16 19:02 Urine Protein 100 mg/dL (NEGATIVE) H 10/17/16 19:02 Urine Glucose (UA) >=1000 mg/dL (NEGATIVE) H 10/17/16 19:02 Urine Ketones NEGATIVE mg/dL (NEGATIVE) 10/17/16 19:02 Urine Blood TRACE (NEGATIVE) 10/17/16 19:02 Urine Nitrate NEGATIVE (NEGATIVE) 10/17/16 19:02 Urine Bilirubin NEGATIVE (NEGATIVE) 10/17/16 19:02 Urine Urobilinogen 0.2 E.U./dL (0.2 - 1.0) 10/17/16 19:02 Ur Leukocyte Esterase NEGATIVE (NEGATIVE) 10/17/16 19:02 Urine RBC 2-5 /hpf (0-5) 10/17/16 19:02 Urine WBC NONE SEEN /hpf (0-5) 10/17/16 19:02 Ur Epithelial Cells NONE SEEN /lpf (FEW) 10/17/16 19:02 Urine Bacteria NONE SEEN /hpf (NONE SEEN) 10/17/16 19:02 Ur Random Sodium 120 mmol/L 10/19/16 19:45 Urine Creatinine 25.5 mg/dl (Not Estab.) 10/19/16 19:45 Urine Microalbumin 670.5 ug/mL (Not Estab.) 10/19/16 19:45 Microalb/Creat Ratio 2629.4 mg/g creat (0.0-30.0) H 10/19/16 19:45 Vancomycin Trough 14.0 ug/mL (10-20) 10/21/16 04:00 Serum Ketones NEGATIVE (NEGATIVE) 10/17/16 15:34 - Physical Exam Vitals and I&O: Vital Signs Temp 97.3 F 10/22/16 08:00 Pulse 69 10/22/16 09:44 Resp 20 10/22/16 08:00 BP 145/82 10/22/16 09:44 Pulse Ox 99 10/22/16 08:00 Intake & Output 10/21/16 10/22/16 10/22/16 18:59 06:59 18:59 Intake Total 3145 1050 Balance 3145 1050 Weight (lbs) 72.303 kg 73.142 kg Intake: Intake, IV Amount 1345 1050 Piperacillin Sodium/ 50 50 Tazobact 3.375 gm In Sodium Chloride 0.9% 50 ml @ 100 mls/hr IV Q8HR [facility] Rx#:[id number] Sodium Chloride 0.9% 1, 795 1000 000 ml @ 60 mls/hr IV . [id number] [facility] Rx#:[id number] Vancomycin HCl 750 mg In 500 Sodium Chloride 0.9% 250 ml @ 165 mls/hr IV Q12H [facility] Rx#:[id number] Oral 1800 Other: # Voids 5 # Bowel Movements 1 6 Stool Characteristics Soft Soft Formed Formed Black Black Active Medications: Current Medications Aspirin (Aspirin Chewable) 81 mg PO DAILY [facility] Stop: 12/18/16 08:59 Last Admin: 10/22/16 09:42 Dose: Not Given Piperacillin Sod/Tazobactam (Sod 3.375 gm/ Sodium Chloride) 50 mls @ 100 mls/ hr IV Q8HR [facility] Stop: 12/16/16 20:59 Last Admin: 10/22/16 04:35 Dose: 100 mls/hr Vancomycin HCl 750 mg/ Sodium (Chloride) 250 mls @ 165 mls/hr IV Q12H [facility] Stop: 12/18/16 16:59 Last Admin: 10/22/16 05:16 Dose: 165 mls/hr Sodium Chloride (Nacl 0.9%) 1,000 mls @ 60 mls/hr IV .[id number] [facility] Stop: 12/16/16 18:18 Last Admin: 10/22/16 10:14 Dose: 60 mls/hr Insulin Aspart (Novolog Insulin Sliding Scale) 0 units SUBQ ACHS [facility] PRN Reason: Protocol Stop: 12/16/16 20:59 Last Admin: 10/22/16 06:34 Dose: Not Given Insulin Detemir (Levemir Insulin) 24 units SUBQ HS [facility] PRN Reason: Protocol Stop: 12/18/16 20:59 Last Admin: 10/21/16 21:46 Dose: Not Given Losartan Potassium (Cozaar) 25 mg PO DAILY [facility] Stop: 12/19/16 13:59 Last Admin: 10/22/16 09:43 Dose: Not Given Metoprolol Tartrate (Lopressor) 50 mg PO DAILY [facility] Stop: 12/18/16 08:59 Last Admin: 10/22/16 09:44 Dose: Not Given Miscellaneous (Vancomycin Iv Per Pharmacy) 1 ea [facility] PRN PRN PRN Reason: PROTOCOL Stop: 12/17/16 07:22 Morphine Sulfate (Morphine) 2 mg IVP Q4H PRN PRN Reason: ABDOMINAL PAIN Stop: 12/20/16 16:16 Last Admin: 10/21/16 22:02 Dose: 2 mg Ondansetron HCl (Zofran) 4 mg IV Q6H PRN PRN Reason: Nausea / Vomiting Stop: 12/18/16 17:27 Last Admin: 10/19/16 18:23 Dose: 4 mg Pantoprazole Sodium (Protonix) 40 mg PO DAILY [facility] Stop: 12/18/16 14:29 Last Admin: 10/22/16 09:45 Dose: Not Given Simethicone (Mylicon) 80 mg PO QID PRN PRN Reason: Gas Stop: 12/19/16 13:51 General: Alert, Moderate distress HEENT: Atraumatic, PERRLA, EOMI Neck: Supple, +2 carotid pulse wo bruit Cardiovascular: Regular rate, Normal S1, Normal S2 Lungs: Clear to auscultation Abdomen: Bowel sounds, Soft, Tender (hyperactive), Other Extremities: no Edema Neurological: Sensation intact Skin: no Rash Psych/Mental Status: Mood NL Assessment/Plan - Problem List Patient Problems: All Active Problems FEVER WITH POSTERIOR BODY ACHES (Acute) Nutritional Asmnt/Malnutr-PDOC - Dietary Evaluation Malnutrition Findings (Please click <Entered> for more info): Nutritional Asmnt/Malnutrition Start: 10/19/16 14: 26 Text: Status: Complete Freq: Document 10/19/16 14:26 [facility] (Rec: 10/19/16 14:38 [facility] [id number]) Nutritional Asmnt/Malnutrition Patient General Information Nutritional Screening Consult Diagnosis High lactic acid, acute sepsis Pertinent Medical Hx/Surgical Hx DM, hx SCT with ablation therapy. Subjective Information Nutrition Consult for high blood sugar received and completed. Pt is a 56-year-old female admitted with chief complaint of fever, body aches , and abdominal pain for 2 days. Pt was awake and alert. Pt reports working night shifts, and she only eats once a day around 1400. Pt drinks coffee, water, and tea throughout her work hours. RD discussed diabetes management with pt and encouraged consistent meal intake for glycemic control. Pt verbalized understanding. RD discussed alternative food ideas that she can tolerate, such as yogurts, smoothies, and nutrition oral supplements . RD weighed pt today with extra blankets removed: 158.2# /71.9 kg. Current Diet Order/ Nutrition Support CCHO-75 GM, renal Patient / S.O Indicated Pertinent Medications Novolog, Morphine, Piperacillin Sodium, NaCl 0.9% , Vancomycin Pertinent Labs (10/17) Glucose 529H, A1C 15.9H (10/19) Creatinine 2H ( improving), Glucose (fasting) 175H, POC Glucose 287H, Phosphorous 2.4L, Magnesium 1. 7L Nutritional Hx/Data Height 1.6 m Height (Calculated Centimeters) 160.0 Current Weight (lbs) 71.758 kg Weight (Calculated Kilograms) 71.8 Weight (Calculated Grams) 27261.3 Usual body Weight (lbs) 164 % Usual Body Weight 96 [place] Body Weight 115 % [place] Body Weight 138 Recent Weight Change Yes Weight Status Overweight GI Symptoms GI Symptoms Nausea Vomitting Food Allergies No Cultural/Ethnic/[employer] Belief No cultural or latter-day beliefs reported. Usual diet at home Regular, one meal a day Skin Integrity/Comment: Shine 23. Skin intact. Current %PO Fair (50-74%) Estimated Nutritional Goals BEE in Kcals: Using Current wt Calories/Kcals/Kg Based on current wt 71.9 kg with consideration of overwt status, sepsis Kcals Calculated 9839-6483 kcals/day (25-30 kcals/kg) Protein: Using Current wt Protein g/kg: Based on current wt 71.9 kg with consideration of overwt status, sepsis Protein Calculated 89-93 gm/day (1.2-1.3 gm/kg) renal labs improving Fluid: ml Per MD/DO Nutritional Problem 2. Problem Problem Severe protein-calorie malnutrition related to Etiology inadequate oral intake as evidenced by Signs/Symptoms: significant 6% body wt loss in one month, dietary recall reveals less than 75% of estimated nutritional needs met x 2 years. 1. Problem Problem Altered nutrition-related laboratory values related to Etiology inconsistent carbohydrate intake, vomiting as evidenced by Signs/Symptoms: admitting glucose 529 mg/dl and A1C 15.9%. Malnutrition Alert Food and Nutrition Intake (Moderate) <75% est energy req 7days Interpretation of weight loss (Severe) >5% in 1 month Protein-Calorie Malnutrition Severe Is there a minimum of two criteria Yes selected? Query Text:Check all the applicable criteria. A minimum of two criteria are recommended for diagnosis of either severe or non-severe malnutrition. Malnutrition Related to Morbid Obesity Malnutrition related to morbid obesity No Intervention/Recommendation Recommendations by RD Dietary Education by RD1 Comments 1. Recommend CCHO-75 GM, low sodium diet to better meet protein needs. 2. Educate pt on consistent oral intake every 4-6 hours for glycemic regimen. Discussed food options that will be easier to consume with schedule and GI tolerance. Also discussed sitting up or walking for at least 30 minutes after eating to prevent reflux. Expected Outcomes/Goals Expected Outcomes/Goals 1. Blood glucose will trend towards desired parameters. 2. Pt will consume at least 75 % of meals consistently. Physician Parameters for PEM Serum Albumin (g/dl) 3.5 - 5.0 (Normal)
--- NOTE | 2016-10-22 15:59 | Operative Report ---
DATE OF SURGERY: 10/22/2016 PROCEDURE PERFORMED: EGD with biopsy and colonoscopy with snare polypectomy. ENDOSCOPIST: Jesús Paul M.D. INDICATIONS: This is a 56-year-old female who had presented with right upper quadrant and epigastric abdominal pain as well as anemia. The patient has never had endoscopy before and thus she is here for EGD and colonoscopy. CONSENT: Informed consent was obtained from the patient. The risks and benefits were explained to the patient including but not limited to infection, bleeding, perforation, need for surgery and cardiopulmonary complications and . The patient indicated understanding of the above and signed the consent form. The patient was deemed an adequate patient for anesthesia. ANESTHESIA: General anesthesia was used. PROCEDURE IN DETAIL: The patient was connected to the appropriate monitoring devices including blood pressure, pulse rate and pulse oximetry. At this point, general anesthesia was administered via anesthesiologist. The patient was positioned in the left lateral decubitus position. Mouthpiece was inserted and secured. After general anesthesia was administered, the endoscope was then inserted into the mouth and under direct visualization into the esophagus, stomach and duodenum. The scope was then slowly withdrawn and the mucosa was carefully examined. Next, the patient was repositioned for colonoscopy. A well lubricated scope was inserted into the rectum and advanced under direct visualization up to the level of the cecum. The scope was then slowly withdrawn and entire colonic mucosa was examined in a systematic fashion. The scope was completely retrieved upon exiting the anal canal. The procedure was then terminated. The patient tolerated the procedure well and there were no obvious signs of complication at the conclusion of the procedure. EGD FINDINGS: 1. Esophagus: The esophagus appeared normal. There was no evidence of esophagitis, ulceration or mass lesion. The GE junction was at 35 cm from the incisors. 2. Stomach: The fundus and cardia appeared normal along the gastric body and in the antrum, there were patchy areas of erythema and nodularity. This may be consistent with gastritis or gastropathy. Biopsies were taken for histology. There were no ulcers or mass lesions. 3. Duodenum: Within the duodenal bulb, there was another area of nodularity and erythema. This area was also biopsied. The second portion of the duodenum appeared normal. COLON FINDINGS: [place] bowel prep score was 1 in the right colon, 2 in the mid colon, and 3 in the left colon. Within the cecum and ascending colon, there was solid stool that was not able to be suctioned through the scope. This obscured about 40% of the cecal views and the area was not able to be seen, but the IC valve was observed. Thus the area under the stool and debris was not examined. The remaining colon appeared healthy. There was no evidence of colitis or diverticulosis. A 5 mm polyp was found in the sigmoid colon and was removed with cold snare. A 2 mm polyp was found in the rectum, and was removed with cold biopsy forceps. There were moderate sized internal hemorrhoids in anal papilla. IMPRESSION AND RECOMMENDATIONS: The patient's upper endoscopy did reveal areas of gastritis in the stomach and thus the patient should be placed on PPI therapy, which may help relieve some of her symptoms. If H. pylori is found on pathology, this should be treated in the colon, 40% of the cecum could not be seen and thus the patient will need a repeat colonoscopy in 1 year's time. Otherwise, we will follow up the pathology of her colon polyps, but most likely depending on pathology, repeat colonoscopy will be due in 1 year as stated above. If the patient's abdominal pain continues, then I would suggest getting a HIDA scan as her pain is mostly in the right upper quadrant to examine for cholecystitis. Thank you for allowing me to participate in the care of this patient. Please call with any further questions. JOB# [id number]
--- NOTE | 2016-10-22 17:31 | General Progress Note ---
Subjective - Review of Systems Service Date: 10/22/16 Subjective: stiil has some abd discomfort Objective - Results Result Diagrams: 10/21/16 04:00 10/21/16 04:00 Recent Labs: Laboratory Last Values WBC 9.5 Th/cmm (4.8-10.8) D 10/21/16 04:00 RBC 3.83 Mil/cmm (3.80-5.10) 10/21/16 04:00 Hgb 10.8 gm/dL (11.7-15.5) L 10/21/16 04:00 Hct 31.8 % (35.0-45.0) L 10/21/16 04:00 MCV 83.1 fl (81-100) 10/21/16 04:00 MCH 28.3 pg (27.0-31.0) 10/21/16 04:00 MCHC Differential 34.1 pg (28.0-36.0) 10/21/16 04:00 RDW 11.1 % (11.5-20.0) L 10/21/16 04:00 Plt Count 339 Th/cmm (150-400) 10/21/16 04:00 MPV 8.0 fl 10/21/16 04:00 Neutrophils % 57.9 % (40.0-80.0) 10/21/16 04:00 Lymphocytes % 31.6 % (20.0-50.0) 10/21/16 04:00 Monocytes % 6.8 % (2.0-10.0) 10/21/16 04:00 Eosinophils % 3.4 % (0.0-5.0) 10/21/16 04:00 Basophils % 0.3 % (0.0-2.0) 10/21/16 04:00 Eos Smear Source URINE 10/19/16 19:45 Eos Smear Total Cells NONE SEEN (NONE SEEN) 10/19/16 19:45 PT 9.0 SECONDS (9.5-11.5) L 10/22/16 04:45 INR 0.88 (0.5-1.4) 10/22/16 04:45 Sodium 135 mEq/L (136-145) L 10/21/16 04:00 Potassium 3.5 mEq/L (3.5-5.1) 10/21/16 04:00 Chloride 108 mEq/L (98-107) H 10/21/16 04:00 Carbon Dioxide 21.7 mEq/L (21.0-31.0) 10/21/16 04:00 Anion Gap 8.8 (7.0-16.0) 10/21/16 04:00 BUN 10 mg/dL (7-25) 10/21/16 04:00 Creatinine 1.8 mg/dL (0.6-1.2) H 10/21/16 04:00 Est GFR ( Amer) 37.4 ml/min (>90) 10/21/16 04:00 Est GFR (Non-Af Amer) 30.9 ml/min 10/21/16 04:00 BUN/Creatinine Ratio 5.6 10/21/16 04:00 Glucose 93 mg/dL (70-105) 10/21/16 04:00 POC Glucose 148 MG/DL (70 - 105) H 10/22/16 16:07 Hemoglobin A1c % 15.9 % (4.0-6.0) H 10/17/16 15:34 Whole Bld Lactic Acid 2.16 mmol/L (0.60-1.99) H* 10/17/16 17:38 Uric Acid 3.6 mg/dL (2.3-6.6) 10/19/16 05:10 Calcium 8.9 mg/dL (8.6-10.3) 10/21/16 04:00 Phosphorus 3.7 mg/dL (2.5-5.0) 10/20/16 05:28 Magnesium 2.0 mg/dL (1.9-2.7) 10/20/16 05:28 Total Bilirubin 0.6 mg/dL (0.3-1.0) 10/17/16 15:34 AST 13 U/L (13-39) 10/17/16 15:34 ALT 12 U/L (7-52) 10/17/16 15:34 Alkaline Phosphatase 80 U/L (34-104) 10/17/16 15:34 Troponin I 0.01 ng/mL (0.01-0.05) 10/17/16 15:34 Total Protein 6.7 gm/dL (6.0-8.3) 10/17/16 15:34 Albumin 3.7 gm/dL (3.7-5.3) 10/17/16 15:34 Globulin 3.0 gm/dL 10/17/16 15:34 Albumin/Globulin Ratio 1.2 (1.0-1.8) 10/17/16 15:34 Amylase 57 U/L (29-103) 10/17/16 15:34 Lipase 21 U/L (11-82) 10/22/16 04:45 TSH 1.47 uIU/ml (0.34-5.60) 10/19/16 05:10 Urine Source RANDOM 10/17/16 19:02 Urine Color YELLOW 10/17/16 19:02 Urine Clarity CLEAR (CLEAR) 10/17/16 19:02 Urine pH 6.0 (4.6 - 8.0) 10/17/16 19:02 Ur Specific [place] 1.010 (1.005-1.030) 10/17/16 19:02 Urine Protein 100 mg/dL (NEGATIVE) H 10/17/16 19:02 Urine Glucose (UA) >=1000 mg/dL (NEGATIVE) H 10/17/16 19:02 Urine Ketones NEGATIVE mg/dL (NEGATIVE) 10/17/16 19:02 Urine Blood TRACE (NEGATIVE) 10/17/16 19:02 Urine Nitrate NEGATIVE (NEGATIVE) 10/17/16 19:02 Urine Bilirubin NEGATIVE (NEGATIVE) 10/17/16 19:02 Urine Urobilinogen 0.2 E.U./dL (0.2 - 1.0) 10/17/16 19:02 Ur Leukocyte Esterase NEGATIVE (NEGATIVE) 10/17/16 19:02 Urine RBC 2-5 /hpf (0-5) 10/17/16 19:02 Urine WBC NONE SEEN /hpf (0-5) 10/17/16 19:02 Ur Epithelial Cells NONE SEEN /lpf (FEW) 10/17/16 19:02 Urine Bacteria NONE SEEN /hpf (NONE SEEN) 10/17/16 19:02 Ur Random Sodium 120 mmol/L 10/19/16 19:45 Urine Creatinine 25.5 mg/dl (Not Estab.) 10/19/16 19:45 Urine Microalbumin 670.5 ug/mL (Not Estab.) 10/19/16 19:45 Microalb/Creat Ratio 2629.4 mg/g creat (0.0-30.0) H 10/19/16 19:45 Vancomycin Trough 14.0 ug/mL (10-20) 10/21/16 04:00 Serum Ketones NEGATIVE (NEGATIVE) 10/17/16 15:34 - Physical Exam Vitals and I&O: Vital Signs Temp 97.8 F 10/22/16 16:00 Pulse 67 10/22/16 16:00 Resp 20 10/22/16 16:00 BP 156/77 10/22/16 16:00 Pulse Ox 98 10/22/16 16:00 Intake & Output 10/21/16 10/22/16 10/22/16 18:59 06:59 18:59 Intake Total 3145 1350 420 Balance 3145 1350 420 Weight (lbs) 72.303 kg 73.142 kg Intake: Intake, IV Amount 1345 1350 420 Piperacillin Sodium/ 50 100 50 Tazobact 3.375 gm In Sodium Chloride 0.9% 50 ml @ 100 mls/hr IV Q8HR [facility] Rx#:[id number] Sodium Chloride 0.9% 1, 795 1000 370 000 ml @ 60 mls/hr IV . [id number] [facility] Rx#:[id number] Vancomycin HCl 750 mg In 500 250 Sodium Chloride 0.9% 250 ml @ 165 mls/hr IV Q12H [facility] Rx#:[id number] Oral 1800 Other: # Voids 5 # Bowel Movements 1 6 Stool Characteristics Soft Soft Soft Formed Formed Formed Black Black Black Active Medications: Current Medications Aspirin (Aspirin Chewable) 81 mg PO DAILY [facility] Stop: 12/18/16 08:59 Last Admin: 10/22/16 09:42 Dose: Not Given Piperacillin Sod/Tazobactam (Sod 3.375 gm/ Sodium Chloride) 50 mls @ 100 mls/ hr IV Q8HR [facility] Stop: 12/16/16 20:59 Last Infusion: 10/22/16 14:15 Dose: Infused Vancomycin HCl 750 mg/ Sodium (Chloride) 250 mls @ 165 mls/hr IV Q12H [facility] Stop: 12/18/16 16:59 Last Admin: 10/22/16 16:23 Dose: 165 mls/hr Sodium Chloride (Nacl 0.9%) 1,000 mls @ 60 mls/hr IV .[id number] [facility] Stop: 12/16/16 18:18 Last Admin: 10/22/16 16:24 Dose: 60 mls/hr Insulin Aspart (Novolog Insulin Sliding Scale) 0 units SUBQ ACHS [facility] PRN Reason: Protocol Stop: 12/16/16 20:59 Last Admin: 10/22/16 16:27 Dose: Not Given Insulin Detemir (Levemir Insulin) 24 units SUBQ HS [facility] PRN Reason: Protocol Stop: 12/18/16 20:59 Last Admin: 10/21/16 21:46 Dose: Not Given Losartan Potassium (Cozaar) 25 mg PO DAILY [facility] Stop: 12/19/16 13:59 Last Admin: 10/22/16 09:43 Dose: Not Given Metoprolol Tartrate (Lopressor) 50 mg PO DAILY [facility] Stop: 12/18/16 08:59 Last Admin: 10/22/16 09:44 Dose: Not Given Miscellaneous (Vancomycin Iv Per Pharmacy) 1 ea [facility] PRN PRN PRN Reason: PROTOCOL Stop: 12/17/16 07:22 Morphine Sulfate (Morphine) 2 mg IVP Q4H PRN PRN Reason: ABDOMINAL PAIN Stop: 12/20/16 16:16 Last Admin: 10/21/16 22:02 Dose: 2 mg Ondansetron HCl (Zofran) 4 mg IV Q6H PRN PRN Reason: Nausea / Vomiting Stop: 12/18/16 17:27 Last Admin: 10/19/16 18:23 Dose: 4 mg Pantoprazole Sodium (Protonix) 40 mg PO DAILY [facility] Stop: 12/18/16 14:29 Last Admin: 10/22/16 09:45 Dose: Not Given Simethicone (Mylicon) 80 mg PO QID PRN PRN Reason: Gas Stop: 12/19/16 13:51 General: Alert, Moderate distress HEENT: Atraumatic, PERRLA, EOMI Neck: Supple, +2 carotid pulse wo bruit Cardiovascular: Regular rate, Normal S1, Normal S2 Lungs: Clear to auscultation Abdomen: Bowel sounds, Soft, Tender (hyperactive), Other Extremities: no Edema Neurological: Sensation intact Skin: no Rash Psych/Mental Status: Mood NL Assessment/Plan - Problem List Patient Problems: All Active Problems FEVER WITH POSTERIOR BODY ACHES (Acute) - Assessment Assessment: ALEENA on CKD Nonspecific gastric pain radiating to back ? erosive gastritis, PUD Lower ext. pain possible DM neuropathy Type 2 DM ooc w/ CKD HTN w/ CKD DM Gastroparesis - Plan Plan: Lab - Result Diagrams 10/19/16 05:10 10/19/16 05:10 Current Medications Aspirin (Aspirin Chewable) 81 mg PO DAILY [facility] Stop: 12/18/16 08:59 Last Admin: 10/19/16 11:29 Dose: Not Given Piperacillin Sod/Tazobactam (Sod 3.375 gm/ Sodium Chloride) 50 mls @ 100 mls/ hr IV Q8HR [facility] Stop: 12/16/16 20:59 Last Admin: 10/19/16 13:14 Dose: 100 mls/hr Sodium Chloride (Nacl 0.9%) 1,000 mls @ 125 mls/hr IV .Q8H [facility] Stop: 12/16/16 18:18 Last Admin: 10/19/16 14:06 Dose: 125 mls/hr Vancomycin HCl 0.75 gm/ Sodium (Chloride) 250 mls @ 165 mls/hr IV Q24HR@1700 [facility] Stop: 12/17/16 16:59 Last Admin: 10/18/16 16:08 Dose: 165 mls/hr Insulin Aspart (Novolog Insulin Sliding Scale) 0 units SUBQ ACHS [facility] PRN Reason: Protocol Stop: 12/16/16 20:59 Last Admin: 10/19/16 12:23 Dose: 6 units Insulin Aspart (Novolog) 10 units SUBQ TID [facility] Stop: 12/17/16 20:59 Last Admin: 10/19/16 11:29 Dose: Not Given Metoprolol Tartrate (Lopressor) 50 mg PO DAILY [facility] Stop: 12/18/16 08:59 Last Admin: 10/19/16 11:29 Dose: Not Given Miscellaneous (Vancomycin Iv Per Pharmacy) 1 ea [facility] PRN PRN PRN Reason: PROTOCOL Stop: 12/17/16 07:22 Morphine Sulfate (Morphine) 2 mg IVP Q4HR PRN PRN Reason: Abdominal Pain Stop: 12/17/16 14:35 Last Admin: 10/19/16 08:47 Dose: 2 mg Kidney fnc stable w/ Cr. of 1.8 continue ivf but decrease rate replace Mg, P04 add PPI, simethicone BS still elevated, increase Detemir start Losartan for proteinuria consider GI consult for possible EGD Lab - Result Diagrams 10/21/16 04:00 10/21/16 04:00 Nutritional Asmnt/Malnutr-PDOC - Dietary Evaluation Malnutrition Findings (Please click <Entered> for more info): Nutritional Asmnt/Malnutrition Start: 10/19/16 14: 26 Text: Status: Complete Freq: Document 10/19/16 14:26 [facility] (Rec: 10/19/16 14:38 [facility] [id number]) Nutritional Asmnt/Malnutrition Patient General Information Nutritional Screening Consult Diagnosis High lactic acid, acute sepsis Pertinent Medical Hx/Surgical Hx DM, hx SCT with ablation therapy. Subjective Information Nutrition Consult for high blood sugar received and completed. Pt is a 56-year-old female admitted with chief complaint of fever, body aches , and abdominal pain for 2 days. Pt was awake and alert. Pt reports working night shifts, and she only eats once a day around 1400. Pt drinks coffee, water, and tea throughout her work hours. RD discussed diabetes management with pt and encouraged consistent meal intake for glycemic control. Pt verbalized understanding. RD discussed alternative food ideas that she can tolerate, such as yogurts, smoothies, and nutrition oral supplements . RD weighed pt today with extra blankets removed: 158.2# /71.9 kg. Current Diet Order/ Nutrition Support CCHO-75 GM, renal Patient / S.O Indicated Pertinent Medications Novolog, Morphine, Piperacillin Sodium, NaCl 0.9% , Vancomycin Pertinent Labs (10/17) Glucose 529H, A1C 15.9H (10/19) Creatinine 2H ( improving), Glucose (fasting) 175H, POC Glucose 287H, Phosphorous 2.4L, Magnesium 1. 7L Nutritional Hx/Data Height 1.6 m Height (Calculated Centimeters) 160.0 Current Weight (lbs) 71.758 kg Weight (Calculated Kilograms) 71.8 Weight (Calculated Grams) 93360.3 Usual body Weight (lbs) 164 % Usual Body Weight 96 [place] Body Weight 115 % [place] Body Weight 138 Recent Weight Change Yes Weight Status Overweight GI Symptoms GI Symptoms Nausea Vomitting Food Allergies No Cultural/Ethnic/Moravian Belief No cultural or orthodoxy beliefs reported. Usual diet at home Regular, one meal a day Skin Integrity/Comment: Shine 23. Skin intact. Current %PO Fair (50-74%) Estimated Nutritional Goals BEE in Kcals: Using Current wt Calories/Kcals/Kg Based on current wt 71.9 kg with consideration of overwt status, sepsis Kcals Calculated 0843-5129 kcals/day (25-30 kcals/kg) Protein: Using Current wt Protein g/kg: Based on current wt 71.9 kg with consideration of overwt status, sepsis Protein Calculated 89-93 gm/day (1.2-1.3 gm/kg) renal labs improving Fluid: ml Per MD/DO Nutritional Problem 2. Problem Problem Severe protein-calorie malnutrition related to Etiology inadequate oral intake as evidenced by Signs/Symptoms: significant 6% body wt loss in one month, dietary recall reveals less than 75% of estimated nutritional needs met x 2 years. 1. Problem Problem Altered nutrition-related laboratory values related to Etiology inconsistent carbohydrate intake, vomiting as evidenced by Signs/Symptoms: admitting glucose 529 mg/dl and A1C 15.9%. Malnutrition Alert Food and Nutrition Intake (Moderate) <75% est energy req 7days Interpretation of weight loss (Severe) >5% in 1 month Protein-Calorie Malnutrition Severe Is there a minimum of two criteria Yes selected? Query Text:Check all the applicable criteria. A minimum of two criteria are recommended for diagnosis of either severe or non-severe malnutrition. Malnutrition Related to Morbid Obesity Malnutrition related to morbid obesity No Intervention/Recommendation Recommendations by RD Dietary Education by RD1 Comments 1. Recommend CCHO-75 GM, low sodium diet to better meet protein needs. 2. Educate pt on consistent oral intake every 4-6 hours for glycemic regimen. Discussed food options that will be easier to consume with schedule and GI tolerance. Also discussed sitting up or walking for at least 30 minutes after eating to prevent reflux. Expected Outcomes/Goals Expected Outcomes/Goals 1. Blood glucose will trend towards desired parameters. 2. Pt will consume at least 75 % of meals consistently. Physician Parameters for PEM Serum Albumin (g/dl) 3.5 - 5.0 (Normal)
[2016-10-22] MEDS: Insulin Detemir 100 units/mL 10mL Vial SUBQ SCH (22:12)
[2016-10-23 05:50] LABS: BUN/CREATININE RATIO 5.3; CARBON DIOXIDE 23.7 mEq/L (21.0-31.0); CREATININE - SERUM 1.9 mg/dL (0.6-1.2); POTASSIUM SERUM 3.7 mEq/L (3.5-5.1)
[2016-10-23 06:03] LABS: % BASOPHILS 0.7 % (0.0-2.0); % EOSINOPHILS 4.9 % (0.0-5.0); % LYMPHOCYTES 31.2 % (20.0-50.0); % MONOCYTES 8.5 % (2.0-10.0); % NEUTROPHILS 54.7 % (40.0-80.0); HEMATOCRIT 31.5 % (35.0-45.0); HEMOGLOBIN 10.7 gm/dL (11.7-15.5); MEAN CELL VOLUME 83.2 fl (81-100); MEAN CORPUSCULAR HEMOGLOBIN 28.1 pg (27.0-31.0); MEAN CORPUSCULAR HGB CONC 33.8 pg (28.0-36.0); MEAN PLATELET VOLUME 7.9 fl; NEUTROPHILE ABSOLUTE 3.9 Th/cmm (1.8-8.0); PLATELET COUNT 370 Th/cmm (150-400); RED BLOOD COUNT 3.79 Mil/cmm (3.80-5.10); RED CELL DISTRIBUTION WIDTH 11.2 % (11.5-20.0); WHITE BLOOD COUNT 7.3 Th/cmm (4.8-10.8)
[2016-10-23] MEDS: INSULIN ASPART SLIDING SCALE 100 UNITS/ML UNIT SUBQ SCH ×2 (06:40→11:44)
[2016-10-23] MEDS: Sodium Chloride 0.9% 1,000 ML IV SCH (08:59)
[2016-10-23] MEDS: Pantoprazole 40 mg/Packet PO SCH (09:01)
[2016-10-23] MEDS: Aspirin 81mg Chewable Tab PO SCH (09:02)
--- NOTE | 2016-10-23 10:34 | GI Progress Note ---
Subjective - Review of Systems Service Date: 10/23/16 Subjective: Pt reports she feels much better today, able to eat breakfast without issue. EGD showed gastropathy, possibly due to acid reflux. PPI started. Objective - Results Result Diagrams: 10/23/16 05:00 10/23/16 05:00 Recent Labs: Laboratory Last Values WBC 7.3 Th/cmm (4.8-10.8) D 10/23/16 05:00 RBC 3.79 Mil/cmm (3.80-5.10) L 10/23/16 05:00 Hgb 10.7 gm/dL (11.7-15.5) L 10/23/16 05:00 Hct 31.5 % (35.0-45.0) L 10/23/16 05:00 MCV 83.2 fl (81-100) 10/23/16 05:00 MCH 28.1 pg (27.0-31.0) 10/23/16 05:00 MCHC Differential 33.8 pg (28.0-36.0) 10/23/16 05:00 RDW 11.2 % (11.5-20.0) L 10/23/16 05:00 Plt Count 370 Th/cmm (150-400) 10/23/16 05:00 MPV 7.9 fl 10/23/16 05:00 Neutrophils % 54.7 % (40.0-80.0) 10/23/16 05:00 Lymphocytes % 31.2 % (20.0-50.0) 10/23/16 05:00 Monocytes % 8.5 % (2.0-10.0) 10/23/16 05:00 Eosinophils % 4.9 % (0.0-5.0) 10/23/16 05:00 Basophils % 0.7 % (0.0-2.0) 10/23/16 05:00 Eos Smear Source URINE 10/19/16 19:45 Eos Smear Total Cells NONE SEEN (NONE SEEN) 10/19/16 19:45 PT 9.0 SECONDS (9.5-11.5) L 10/22/16 04:45 INR 0.88 (0.5-1.4) 10/22/16 04:45 Sodium 137 mEq/L (136-145) 10/23/16 05:00 Potassium 3.7 mEq/L (3.5-5.1) 10/23/16 05:00 Chloride 108 mEq/L (98-107) H 10/23/16 05:00 Carbon Dioxide 23.7 mEq/L (21.0-31.0) 10/23/16 05:00 Anion Gap 9.0 (7.0-16.0) 10/23/16 05:00 BUN 10 mg/dL (7-25) 10/23/16 05:00 Creatinine 1.9 mg/dL (0.6-1.2) H 10/23/16 05:00 Est GFR ( Amer) 35.2 ml/min (>90) 10/23/16 05:00 Est GFR (Non-Af Amer) 29.1 ml/min 10/23/16 05:00 BUN/Creatinine Ratio 5.3 10/23/16 05:00 Glucose 149 mg/dL (70-105) H 10/23/16 05:00 POC Glucose 140 MG/DL (70 - 105) H 10/23/16 06:39 Hemoglobin A1c % 15.9 % (4.0-6.0) H 10/17/16 15:34 Whole Bld Lactic Acid 2.16 mmol/L (0.60-1.99) H* 10/17/16 17:38 Uric Acid 3.6 mg/dL (2.3-6.6) 10/19/16 05:10 Calcium 9.0 mg/dL (8.6-10.3) 10/23/16 05:00 Phosphorus 3.7 mg/dL (2.5-5.0) 10/20/16 05:28 Magnesium 2.0 mg/dL (1.9-2.7) 10/20/16 05:28 Total Bilirubin 0.6 mg/dL (0.3-1.0) 10/17/16 15:34 AST 13 U/L (13-39) 10/17/16 15:34 ALT 12 U/L (7-52) 10/17/16 15:34 Alkaline Phosphatase 80 U/L (34-104) 10/17/16 15:34 Troponin I 0.01 ng/mL (0.01-0.05) 10/17/16 15:34 Total Protein 6.7 gm/dL (6.0-8.3) 10/17/16 15:34 Albumin 3.7 gm/dL (3.7-5.3) 10/17/16 15:34 Globulin 3.0 gm/dL 10/17/16 15:34 Albumin/Globulin Ratio 1.2 (1.0-1.8) 10/17/16 15:34 Amylase 57 U/L (29-103) 10/17/16 15:34 Lipase 21 U/L (11-82) 10/22/16 04:45 TSH 1.47 uIU/ml (0.34-5.60) 10/19/16 05:10 Urine Source RANDOM 10/17/16 19:02 Urine Color YELLOW 10/17/16 19:02 Urine Clarity CLEAR (CLEAR) 10/17/16 19:02 Urine pH 6.0 (4.6 - 8.0) 10/17/16 19:02 Ur Specific [place] 1.010 (1.005-1.030) 10/17/16 19:02 Urine Protein 100 mg/dL (NEGATIVE) H 10/17/16 19:02 Urine Glucose (UA) >=1000 mg/dL (NEGATIVE) H 10/17/16 19:02 Urine Ketones NEGATIVE mg/dL (NEGATIVE) 10/17/16 19:02 Urine Blood TRACE (NEGATIVE) 10/17/16 19:02 Urine Nitrate NEGATIVE (NEGATIVE) 10/17/16 19:02 Urine Bilirubin NEGATIVE (NEGATIVE) 10/17/16 19:02 Urine Urobilinogen 0.2 E.U./dL (0.2 - 1.0) 10/17/16 19:02 Ur Leukocyte Esterase NEGATIVE (NEGATIVE) 10/17/16 19:02 Urine RBC 2-5 /hpf (0-5) 10/17/16 19:02 Urine WBC NONE SEEN /hpf (0-5) 10/17/16 19:02 Ur Epithelial Cells NONE SEEN /lpf (FEW) 10/17/16 19:02 Urine Bacteria NONE SEEN /hpf (NONE SEEN) 10/17/16 19:02 Ur Random Sodium 120 mmol/L 10/19/16 19:45 Urine Creatinine 25.5 mg/dl (Not Estab.) 10/19/16 19:45 Urine Microalbumin 670.5 ug/mL (Not Estab.) 10/19/16 19:45 Microalb/Creat Ratio 2629.4 mg/g creat (0.0-30.0) H 10/19/16 19:45 Vancomycin Trough 14.0 ug/mL (10-20) 10/21/16 04:00 Serum Ketones NEGATIVE (NEGATIVE) 10/17/16 15:34 - Physical Exam Vitals and I&O: Vital Signs Temp 97.8 F 10/23/16 08:27 Pulse 68 10/23/16 09:02 Resp 19 10/23/16 08:27 BP 148/72 10/23/16 09:02 Pulse Ox 100 10/23/16 08:27 Intake & Output 10/22/16 10/23/16 10/23/16 18:59 06:59 18:59 Intake Total 1720 500 995 Balance 1720 500 995 Weight (lbs) 73.142 kg 72.802 kg 72.575 kg Intake: Intake, IV Amount 670 300 995 Piperacillin Sodium/ 50 50 Tazobact 3.375 gm In Sodium Chloride 0.9% 50 ml @ 100 mls/hr IV Q8HR [facility] Rx#:[id number] Sodium Chloride 0.9% 1, 370 995 000 ml @ 60 mls/hr IV . [id number] [facility] Rx#:[id number] Vancomycin HCl 750 mg In 250 250 Sodium Chloride 0.9% 250 ml @ 165 mls/hr IV Q12H [facility] Rx#:[id number] Oral 1050 200 Other: # Voids 5 3 # Bowel Movements 3 0 Stool Characteristics Soft Formed Black Active Medications: Current Medications Aspirin (Aspirin Chewable) 81 mg PO DAILY [facility] Stop: 12/18/16 08:59 Last Admin: 10/23/16 09:02 Dose: 81 mg Piperacillin Sod/Tazobactam (Sod 3.375 gm/ Sodium Chloride) 50 mls @ 100 mls/ hr IV Q8HR [facility] Stop: 12/16/16 20:59 Last Admin: 10/23/16 04:10 Dose: 100 mls/hr Sodium Chloride (Nacl 0.9%) 1,000 mls @ 60 mls/hr IV .[id number] [facility] Stop: 12/16/16 18:18 Last Admin: 10/23/16 08:59 Dose: 60 mls/hr Vancomycin HCl 1 gm/ Sodium (Chloride) 250 mls @ 165 mls/hr IV Q24H [facility] Stop: 12/22/16 22:59 Insulin Aspart (Novolog Insulin Sliding Scale) 0 units SUBQ ACHS [facility] PRN Reason: Protocol Stop: 12/16/16 20:59 Last Admin: 10/23/16 06:40 Dose: Not Given Insulin Detemir (Levemir Insulin) 24 units SUBQ HS [facility] PRN Reason: Protocol Stop: 12/18/16 20:59 Last Admin: 10/22/16 22:12 Dose: Not Given Losartan Potassium (Cozaar) 25 mg PO DAILY [facility] Stop: 12/19/16 13:59 Last Admin: 10/23/16 09:00 Dose: 25 mg Metoprolol Tartrate (Lopressor) 50 mg PO DAILY [facility] Stop: 12/18/16 08:59 Last Admin: 10/23/16 09:02 Dose: 50 mg Miscellaneous (Vancomycin Iv Per Pharmacy) 1 ea [facility] PRN PRN PRN Reason: PROTOCOL Stop: 12/17/16 07:22 Morphine Sulfate (Morphine) 2 mg IVP Q4H PRN PRN Reason: ABDOMINAL PAIN Stop: 12/20/16 16:16 Last Admin: 10/21/16 22:02 Dose: 2 mg Ondansetron HCl (Zofran) 4 mg IV Q6H PRN PRN Reason: Nausea / Vomiting Stop: 12/18/16 17:27 Last Admin: 10/19/16 18:23 Dose: 4 mg Pantoprazole Sodium (Protonix) 40 mg PO DAILY [facility] Stop: 12/18/16 14:29 Last Admin: 10/23/16 09:01 Dose: 40 mg Simethicone (Mylicon) 80 mg PO QID PRN PRN Reason: Gas Stop: 12/19/16 13:51 General: Alert, Moderate distress HEENT: Atraumatic, PERRLA, EOMI Neck: Supple, +2 carotid pulse wo bruit Cardiovascular: Regular rate, Normal S1, Normal S2 Lungs: Clear to auscultation Abdomen: Bowel sounds, Soft, Tender (hyperactive), Other Extremities: no Edema Neurological: Sensation intact Skin: no Rash Psych/Mental Status: Mood NL Assessment/Plan - Problem List Patient Problems: All Active Problems FEVER WITH POSTERIOR BODY ACHES (Acute) - Assessment Assessment: # RUQ pain # Epigastric pain # Anemia EGD and colonoscopy performed on 10/22. Gastropathy noted in the antrum, biopsies pending. Patient will likely benefit from PPI, and will treat H pylori if found. Colonoscopy revealed two polyps, no mass lesions, although cecum was not completely visualized due to retained stool. Plan: - PPI daily, follow up H pylori and biopsies - repeat colonoscopy 1 year given incomplete cecal and r colon evaluation. - avoid spicy foods, high gas forming foods Thank you for allowing me to partipate in the care of this patient. Please call with questions.
--- NOTE | 2016-10-23 11:28 | Infectious Disease Prog Note ---
Infectious Disease Subjective - Review of Systems Service Date: 10/23/16 Subjective: cc latrice/sepsis hpi- d/w staff schedule for discjarge will stop antibiotics ros no fver o/e vss chest cklaer abd soft ext no decdema dx latrice/sepsis plan - zosyn stop on dischaerge Infectious Disease Objective - Results Result Diagrams: 10/23/16 05:00 10/23/16 05:00 Recent Labs: Laboratory Last Values WBC 7.3 Th/cmm (4.8-10.8) D 10/23/16 05:00 RBC 3.79 Mil/cmm (3.80-5.10) L 10/23/16 05:00 Hgb 10.7 gm/dL (11.7-15.5) L 10/23/16 05:00 Hct 31.5 % (35.0-45.0) L 10/23/16 05:00 MCV 83.2 fl (81-100) 10/23/16 05:00 MCH 28.1 pg (27.0-31.0) 10/23/16 05:00 MCHC Differential 33.8 pg (28.0-36.0) 10/23/16 05:00 RDW 11.2 % (11.5-20.0) L 10/23/16 05:00 Plt Count 370 Th/cmm (150-400) 10/23/16 05:00 MPV 7.9 fl 10/23/16 05:00 Neutrophils % 54.7 % (40.0-80.0) 10/23/16 05:00 Lymphocytes % 31.2 % (20.0-50.0) 10/23/16 05:00 Monocytes % 8.5 % (2.0-10.0) 10/23/16 05:00 Eosinophils % 4.9 % (0.0-5.0) 10/23/16 05:00 Basophils % 0.7 % (0.0-2.0) 10/23/16 05:00 Eos Smear Source URINE 10/19/16 19:45 Eos Smear Total Cells NONE SEEN (NONE SEEN) 10/19/16 19:45 PT 9.0 SECONDS (9.5-11.5) L 10/22/16 04:45 INR 0.88 (0.5-1.4) 10/22/16 04:45 Sodium 137 mEq/L (136-145) 10/23/16 05:00 Potassium 3.7 mEq/L (3.5-5.1) 10/23/16 05:00 Chloride 108 mEq/L (98-107) H 10/23/16 05:00 Carbon Dioxide 23.7 mEq/L (21.0-31.0) 10/23/16 05:00 Anion Gap 9.0 (7.0-16.0) 10/23/16 05:00 BUN 10 mg/dL (7-25) 10/23/16 05:00 Creatinine 1.9 mg/dL (0.6-1.2) H 10/23/16 05:00 Est GFR ( Amer) 35.2 ml/min (>90) 10/23/16 05:00 Est GFR (Non-Af Amer) 29.1 ml/min 10/23/16 05:00 BUN/Creatinine Ratio 5.3 10/23/16 05:00 Glucose 149 mg/dL (70-105) H 10/23/16 05:00 POC Glucose 140 MG/DL (70 - 105) H 10/23/16 06:39 Hemoglobin A1c % 15.9 % (4.0-6.0) H 10/17/16 15:34 Whole Bld Lactic Acid 2.16 mmol/L (0.60-1.99) H* 10/17/16 17:38 Uric Acid 3.6 mg/dL (2.3-6.6) 10/19/16 05:10 Calcium 9.0 mg/dL (8.6-10.3) 10/23/16 05:00 Phosphorus 3.7 mg/dL (2.5-5.0) 10/20/16 05:28 Magnesium 2.0 mg/dL (1.9-2.7) 10/20/16 05:28 Total Bilirubin 0.6 mg/dL (0.3-1.0) 10/17/16 15:34 AST 13 U/L (13-39) 10/17/16 15:34 ALT 12 U/L (7-52) 10/17/16 15:34 Alkaline Phosphatase 80 U/L (34-104) 10/17/16 15:34 Troponin I 0.01 ng/mL (0.01-0.05) 10/17/16 15:34 Total Protein 6.7 gm/dL (6.0-8.3) 10/17/16 15:34 Albumin 3.7 gm/dL (3.7-5.3) 10/17/16 15:34 Globulin 3.0 gm/dL 10/17/16 15:34 Albumin/Globulin Ratio 1.2 (1.0-1.8) 10/17/16 15:34 Amylase 57 U/L (29-103) 10/17/16 15:34 Lipase 21 U/L (11-82) 10/22/16 04:45 TSH 1.47 uIU/ml (0.34-5.60) 10/19/16 05:10 Urine Source RANDOM 10/17/16 19:02 Urine Color YELLOW 10/17/16 19:02 Urine Clarity CLEAR (CLEAR) 10/17/16 19:02 Urine pH 6.0 (4.6 - 8.0) 10/17/16 19:02 Ur Specific [place] 1.010 (1.005-1.030) 10/17/16 19:02 Urine Protein 100 mg/dL (NEGATIVE) H 10/17/16 19:02 Urine Glucose (UA) >=1000 mg/dL (NEGATIVE) H 10/17/16 19:02 Urine Ketones NEGATIVE mg/dL (NEGATIVE) 10/17/16 19:02 Urine Blood TRACE (NEGATIVE) 10/17/16 19:02 Urine Nitrate NEGATIVE (NEGATIVE) 10/17/16 19:02 Urine Bilirubin NEGATIVE (NEGATIVE) 10/17/16 19:02 Urine Urobilinogen 0.2 E.U./dL (0.2 - 1.0) 10/17/16 19:02 Ur Leukocyte Esterase NEGATIVE (NEGATIVE) 10/17/16 19:02 Urine RBC 2-5 /hpf (0-5) 10/17/16 19:02 Urine WBC NONE SEEN /hpf (0-5) 10/17/16 19:02 Ur Epithelial Cells NONE SEEN /lpf (FEW) 10/17/16 19:02 Urine Bacteria NONE SEEN /hpf (NONE SEEN) 10/17/16 19:02 Ur Random Sodium 120 mmol/L 10/19/16 19:45 Urine Creatinine 25.5 mg/dl (Not Estab.) 10/19/16 19:45 Urine Microalbumin 670.5 ug/mL (Not Estab.) 10/19/16 19:45 Microalb/Creat Ratio 2629.4 mg/g creat (0.0-30.0) H 10/19/16 19:45 Vancomycin Trough 14.0 ug/mL (10-20) 10/21/16 04:00 Serum Ketones NEGATIVE (NEGATIVE) 10/17/16 15:34 - Physical Exam Vitals and I&O: Vital Signs Temp 97.8 F 10/23/16 08:27 Pulse 68 10/23/16 09:02 Resp 19 10/23/16 08:27 BP 148/72 10/23/16 09:02 Pulse Ox 100 10/23/16 08:27 Intake & Output 10/22/16 10/23/16 10/23/16 18:59 06:59 18:59 Intake Total 1720 500 995 Balance 1720 500 995 Weight (lbs) 73.142 kg 72.802 kg 72.575 kg Intake: Intake, IV Amount 670 300 995 Piperacillin Sodium/ 50 50 Tazobact 3.375 gm In Sodium Chloride 0.9% 50 ml @ 100 mls/hr IV Q8HR [facility] Rx#:[id number] Sodium Chloride 0.9% 1, 370 995 000 ml @ 60 mls/hr IV . [id number] [facility] Rx#:[id number] Vancomycin HCl 750 mg In 250 250 Sodium Chloride 0.9% 250 ml @ 165 mls/hr IV Q12H [facility] Rx#:[id number] Oral 1050 200 Other: # Voids 5 3 # Bowel Movements 3 0 Stool Characteristics Soft Formed Black Active Medications: Current Medications Aspirin (Aspirin Chewable) 81 mg PO DAILY [facility] Stop: 12/18/16 08:59 Last Admin: 10/23/16 09:02 Dose: 81 mg Piperacillin Sod/Tazobactam (Sod 3.375 gm/ Sodium Chloride) 50 mls @ 100 mls/ hr IV Q8HR [facility] Stop: 12/16/16 20:59 Last Admin: 10/23/16 04:10 Dose: 100 mls/hr Sodium Chloride (Nacl 0.9%) 1,000 mls @ 60 mls/hr IV .[id number] [facility] Stop: 12/16/16 18:18 Last Admin: 10/23/16 08:59 Dose: 60 mls/hr Vancomycin HCl 1 gm/ Sodium (Chloride) 250 mls @ 165 mls/hr IV Q24H [facility] Stop: 12/22/16 22:59 Insulin Aspart (Novolog Insulin Sliding Scale) 0 units SUBQ ACHS [facility] PRN Reason: Protocol Stop: 12/16/16 20:59 Last Admin: 10/23/16 06:40 Dose: Not Given Insulin Detemir (Levemir Insulin) 24 units SUBQ HS [facility] PRN Reason: Protocol Stop: 12/18/16 20:59 Last Admin: 10/22/16 22:12 Dose: Not Given Losartan Potassium (Cozaar) 25 mg PO DAILY [facility] Stop: 12/19/16 13:59 Last Admin: 10/23/16 09:00 Dose: 25 mg Metoprolol Tartrate (Lopressor) 50 mg PO DAILY [facility] Stop: 12/18/16 08:59 Last Admin: 10/23/16 09:02 Dose: 50 mg Miscellaneous (Vancomycin Iv Per Pharmacy) 1 ea [facility] PRN PRN PRN Reason: PROTOCOL Stop: 12/17/16 07:22 Morphine Sulfate (Morphine) 2 mg IVP Q4H PRN PRN Reason: ABDOMINAL PAIN Stop: 12/20/16 16:16 Last Admin: 10/21/16 22:02 Dose: 2 mg Ondansetron HCl (Zofran) 4 mg IV Q6H PRN PRN Reason: Nausea / Vomiting Stop: 12/18/16 17:27 Last Admin: 10/19/16 18:23 Dose: 4 mg Pantoprazole Sodium (Protonix) 40 mg PO DAILY [facility] Stop: 12/18/16 14:29 Last Admin: 10/23/16 09:01 Dose: 40 mg Simethicone (Mylicon) 80 mg PO QID PRN PRN Reason: Gas Stop: 12/19/16 13:51 Infectious Disease Assmt/Plan - Problem List Patient Problems: All Active Problems FEVER WITH POSTERIOR BODY ACHES (Acute) Nutritional Asmnt/Malnutr-PDOC - Dietary Evaluation Malnutrition Findings (Please click <Entered> for more info): Nutritional Asmnt/Malnutrition Start: 10/19/16 14: 26 Text: Status: Complete Freq: Document 10/19/16 14:26 [facility] (Rec: 10/19/16 14:38 [facility] [id number]) Nutritional Asmnt/Malnutrition Patient General Information Nutritional Screening Consult Diagnosis High lactic acid, acute sepsis Pertinent Medical Hx/Surgical Hx DM, hx SCT with ablation therapy. Subjective Information Nutrition Consult for high blood sugar received and completed. Pt is a 56-year-old female admitted with chief complaint of fever, body aches , and abdominal pain for 2 days. Pt was awake and alert. Pt reports working night shifts, and she only eats once a day around 1400. Pt drinks coffee, water, and tea throughout her work hours. RD discussed diabetes management with pt and encouraged consistent meal intake for glycemic control. Pt verbalized understanding. RD discussed alternative food ideas that she can tolerate, such as yogurts, smoothies, and nutrition oral supplements . RD weighed pt today with extra blankets removed: 158.2# /71.9 kg. Current Diet Order/ Nutrition Support CCHO-75 GM, renal Patient / S.O Indicated Pertinent Medications Novolog, Morphine, Piperacillin Sodium, NaCl 0.9% , Vancomycin Pertinent Labs (10/17) Glucose 529H, A1C 15.9H (10/19) Creatinine 2H ( improving), Glucose (fasting) 175H, POC Glucose 287H, Phosphorous 2.4L, Magnesium 1. 7L Nutritional Hx/Data Height 1.6 m Height (Calculated Centimeters) 160.0 Current Weight (lbs) 71.758 kg Weight (Calculated Kilograms) 71.8 Weight (Calculated Grams) 14792.3 Usual body Weight (lbs) 164 % Usual Body Weight 96 [place] Body Weight 115 % [place] Body Weight 138 Recent Weight Change Yes Weight Status Overweight GI Symptoms GI Symptoms Nausea Vomitting Food Allergies No Cultural/Ethnic/Synagogue Belief No cultural or pentecostalism beliefs reported. Usual diet at home Regular, one meal a day Skin Integrity/Comment: Shine 23. Skin intact. Current %PO Fair (50-74%) Estimated Nutritional Goals BEE in Kcals: Using Current wt Calories/Kcals/Kg Based on current wt 71.9 kg with consideration of overwt status, sepsis Kcals Calculated 4141-8829 kcals/day (25-30 kcals/kg) Protein: Using Current wt Protein g/kg: Based on current wt 71.9 kg with consideration of overwt status, sepsis Protein Calculated 89-93 gm/day (1.2-1.3 gm/kg) renal labs improving Fluid: ml Per MD/DO Nutritional Problem 2. Problem Problem Severe protein-calorie malnutrition related to Etiology inadequate oral intake as evidenced by Signs/Symptoms: significant 6% body wt loss in one month, dietary recall reveals less than 75% of estimated nutritional needs met x 2 years. 1. Problem Problem Altered nutrition-related laboratory values related to Etiology inconsistent carbohydrate intake, vomiting as evidenced by Signs/Symptoms: admitting glucose 529 mg/dl and A1C 15.9%. Malnutrition Alert Food and Nutrition Intake (Moderate) <75% est energy req 7days Interpretation of weight loss (Severe) >5% in 1 month Protein-Calorie Malnutrition Severe Is there a minimum of two criteria Yes selected? Query Text:Check all the applicable criteria. A minimum of two criteria are recommended for diagnosis of either severe or non-severe malnutrition. Malnutrition Related to Morbid Obesity Malnutrition related to morbid obesity No Intervention/Recommendation Recommendations by RD Dietary Education by RD1 Comments 1. Recommend CCHO-75 GM, low sodium diet to better meet protein needs. 2. Educate pt on consistent oral intake every 4-6 hours for glycemic regimen. Discussed food options that will be easier to consume with schedule and GI tolerance. Also discussed sitting up or walking for at least 30 minutes after eating to prevent reflux. Expected Outcomes/Goals Expected Outcomes/Goals 1. Blood glucose will trend towards desired parameters. 2. Pt will consume at least 75 % of meals consistently. Physician Parameters for PEM Serum Albumin (g/dl) 3.5 - 5.0 (Normal)
--- NOTE | 2016-10-23 13:19 | General Progress Note ---
Subjective - Review of Systems Events since last encounter: patient feels much better today, able to eat breakfast without issue. Subjective: awake, alert, abdominal pain has slightly improved Objective - Results Result Diagrams: 10/23/16 05:00 10/23/16 05:00 Recent Labs: Laboratory Last Values WBC 7.3 Th/cmm (4.8-10.8) D 10/23/16 05:00 RBC 3.79 Mil/cmm (3.80-5.10) L 10/23/16 05:00 Hgb 10.7 gm/dL (11.7-15.5) L 10/23/16 05:00 Hct 31.5 % (35.0-45.0) L 10/23/16 05:00 MCV 83.2 fl (81-100) 10/23/16 05:00 MCH 28.1 pg (27.0-31.0) 10/23/16 05:00 MCHC Differential 33.8 pg (28.0-36.0) 10/23/16 05:00 RDW 11.2 % (11.5-20.0) L 10/23/16 05:00 Plt Count 370 Th/cmm (150-400) 10/23/16 05:00 MPV 7.9 fl 10/23/16 05:00 Neutrophils % 54.7 % (40.0-80.0) 10/23/16 05:00 Lymphocytes % 31.2 % (20.0-50.0) 10/23/16 05:00 Monocytes % 8.5 % (2.0-10.0) 10/23/16 05:00 Eosinophils % 4.9 % (0.0-5.0) 10/23/16 05:00 Basophils % 0.7 % (0.0-2.0) 10/23/16 05:00 Eos Smear Source URINE 10/19/16 19:45 Eos Smear Total Cells NONE SEEN (NONE SEEN) 10/19/16 19:45 PT 9.0 SECONDS (9.5-11.5) L 10/22/16 04:45 INR 0.88 (0.5-1.4) 10/22/16 04:45 Sodium 137 mEq/L (136-145) 10/23/16 05:00 Potassium 3.7 mEq/L (3.5-5.1) 10/23/16 05:00 Chloride 108 mEq/L (98-107) H 10/23/16 05:00 Carbon Dioxide 23.7 mEq/L (21.0-31.0) 10/23/16 05:00 Anion Gap 9.0 (7.0-16.0) 10/23/16 05:00 BUN 10 mg/dL (7-25) 10/23/16 05:00 Creatinine 1.9 mg/dL (0.6-1.2) H 10/23/16 05:00 Est GFR ( Amer) 35.2 ml/min (>90) 10/23/16 05:00 Est GFR (Non-Af Amer) 29.1 ml/min 10/23/16 05:00 BUN/Creatinine Ratio 5.3 10/23/16 05:00 Glucose 149 mg/dL (70-105) H 10/23/16 05:00 POC Glucose 140 MG/DL (70 - 105) H 10/23/16 06:39 Hemoglobin A1c % 15.9 % (4.0-6.0) H 10/17/16 15:34 Whole Bld Lactic Acid 2.16 mmol/L (0.60-1.99) H* 10/17/16 17:38 Uric Acid 3.6 mg/dL (2.3-6.6) 10/19/16 05:10 Calcium 9.0 mg/dL (8.6-10.3) 10/23/16 05:00 Phosphorus 3.7 mg/dL (2.5-5.0) 10/20/16 05:28 Magnesium 2.0 mg/dL (1.9-2.7) 10/20/16 05:28 Total Bilirubin 0.6 mg/dL (0.3-1.0) 10/17/16 15:34 AST 13 U/L (13-39) 10/17/16 15:34 ALT 12 U/L (7-52) 10/17/16 15:34 Alkaline Phosphatase 80 U/L (34-104) 10/17/16 15:34 Troponin I 0.01 ng/mL (0.01-0.05) 10/17/16 15:34 Total Protein 6.7 gm/dL (6.0-8.3) 10/17/16 15:34 Albumin 3.7 gm/dL (3.7-5.3) 10/17/16 15:34 Globulin 3.0 gm/dL 10/17/16 15:34 Albumin/Globulin Ratio 1.2 (1.0-1.8) 10/17/16 15:34 Amylase 57 U/L (29-103) 10/17/16 15:34 Lipase 21 U/L (11-82) 10/22/16 04:45 TSH 1.47 uIU/ml (0.34-5.60) 10/19/16 05:10 Urine Source RANDOM 10/17/16 19:02 Urine Color YELLOW 10/17/16 19:02 Urine Clarity CLEAR (CLEAR) 10/17/16 19:02 Urine pH 6.0 (4.6 - 8.0) 10/17/16 19:02 Ur Specific [place] 1.010 (1.005-1.030) 10/17/16 19:02 Urine Protein 100 mg/dL (NEGATIVE) H 10/17/16 19:02 Urine Glucose (UA) >=1000 mg/dL (NEGATIVE) H 10/17/16 19:02 Urine Ketones NEGATIVE mg/dL (NEGATIVE) 10/17/16 19:02 Urine Blood TRACE (NEGATIVE) 10/17/16 19:02 Urine Nitrate NEGATIVE (NEGATIVE) 10/17/16 19:02 Urine Bilirubin NEGATIVE (NEGATIVE) 10/17/16 19:02 Urine Urobilinogen 0.2 E.U./dL (0.2 - 1.0) 10/17/16 19:02 Ur Leukocyte Esterase NEGATIVE (NEGATIVE) 10/17/16 19:02 Urine RBC 2-5 /hpf (0-5) 10/17/16 19:02 Urine WBC NONE SEEN /hpf (0-5) 10/17/16 19:02 Ur Epithelial Cells NONE SEEN /lpf (FEW) 10/17/16 19:02 Urine Bacteria NONE SEEN /hpf (NONE SEEN) 10/17/16 19:02 Ur Random Sodium 120 mmol/L 10/19/16 19:45 Urine Creatinine 25.5 mg/dl (Not Estab.) 10/19/16 19:45 Urine Microalbumin 670.5 ug/mL (Not Estab.) 10/19/16 19:45 Microalb/Creat Ratio 2629.4 mg/g creat (0.0-30.0) H 10/19/16 19:45 Vancomycin Trough 14.0 ug/mL (10-20) 10/21/16 04:00 Serum Ketones NEGATIVE (NEGATIVE) 10/17/16 15:34 - Physical Exam Vitals and I&O: Vital Signs Temp 98.2 F 10/23/16 11:55 Pulse 76 10/23/16 11:55 Resp 18 10/23/16 11:55 BP 138/72 10/23/16 11:55 Pulse Ox 97 10/23/16 11:55 Intake & Output 10/22/16 10/23/16 10/23/16 18:59 06:59 18:59 Intake Total 1720 500 995 Balance 1720 500 995 Weight (lbs) 73.142 kg 72.802 kg 72.575 kg Intake: Intake, IV Amount 670 300 995 Piperacillin Sodium/ 50 50 Tazobact 3.375 gm In Sodium Chloride 0.9% 50 ml @ 100 mls/hr IV Q8HR [facility] Rx#:[id number] Sodium Chloride 0.9% 1, 370 995 000 ml @ 60 mls/hr IV . [id number] [facility] Rx#:[id number] Vancomycin HCl 750 mg In 250 250 Sodium Chloride 0.9% 250 ml @ 165 mls/hr IV Q12H [facility] Rx#:[id number] Oral 1050 200 Other: # Voids 5 3 # Bowel Movements 3 0 Stool Characteristics Soft Formed Black Active Medications: Current Medications Aspirin (Aspirin Chewable) 81 mg PO DAILY [facility] Stop: 12/18/16 08:59 Last Admin: 10/23/16 09:02 Dose: 81 mg Piperacillin Sod/Tazobactam (Sod 3.375 gm/ Sodium Chloride) 50 mls @ 100 mls/ hr IV Q8HR [facility] Stop: 12/16/16 20:59 Last Admin: 10/23/16 04:10 Dose: 100 mls/hr Sodium Chloride (Nacl 0.9%) 1,000 mls @ 60 mls/hr IV .[id number] [facility] Stop: 12/16/16 18:18 Last Admin: 10/23/16 08:59 Dose: 60 mls/hr Vancomycin HCl 1 gm/ Sodium (Chloride) 250 mls @ 165 mls/hr IV Q24H [facility] Stop: 12/22/16 22:59 Insulin Aspart (Novolog Insulin Sliding Scale) 0 units SUBQ ACHS [facility] PRN Reason: Protocol Stop: 12/16/16 20:59 Last Admin: 10/23/16 11:44 Dose: 10 units Insulin Detemir (Levemir Insulin) 24 units SUBQ HS [facility] PRN Reason: Protocol Stop: 12/18/16 20:59 Last Admin: 10/22/16 22:12 Dose: Not Given Losartan Potassium (Cozaar) 25 mg PO DAILY [facility] Stop: 12/19/16 13:59 Last Admin: 10/23/16 09:00 Dose: 25 mg Metoprolol Tartrate (Lopressor) 50 mg PO DAILY [facility] Stop: 12/18/16 08:59 Last Admin: 10/23/16 09:02 Dose: 50 mg Miscellaneous (Vancomycin Iv Per Pharmacy) 1 ea [facility] PRN PRN PRN Reason: PROTOCOL Stop: 12/17/16 07:22 Morphine Sulfate (Morphine) 2 mg IVP Q4H PRN PRN Reason: ABDOMINAL PAIN Stop: 12/20/16 16:16 Last Admin: 10/21/16 22:02 Dose: 2 mg Ondansetron HCl (Zofran) 4 mg IV Q6H PRN PRN Reason: Nausea / Vomiting Stop: 12/18/16 17:27 Last Admin: 10/19/16 18:23 Dose: 4 mg Pantoprazole Sodium (Protonix) 40 mg PO DAILY [facility] Stop: 12/18/16 14:29 Last Admin: 10/23/16 09:01 Dose: 40 mg Simethicone (Mylicon) 80 mg PO QID PRN PRN Reason: Gas Stop: 12/19/16 13:51 General: Alert, Moderate distress HEENT: Atraumatic, PERRLA, EOMI Neck: Supple, +2 carotid pulse wo bruit Cardiovascular: Regular rate, Normal S1, Normal S2 Lungs: Clear to auscultation Abdomen: Bowel sounds, Soft, Tender (hyperactive), Other Extremities: no Edema Neurological: Sensation intact Skin: no Rash Psych/Mental Status: Mood NL - Procedures Procedures: Procedures Procedure Code Date COLONOSCOPY W/LESION REMOVAL 81291 10/17/16 EGD BIOPSY SINGLE/MULTIPLE 49854 10/17/16 EXCISION OF RECTUM, ENDO [id number] 10/17/16 EXCISION OF SIGMOID COLON, ENDO [id number] 10/17/16 EXCISION OF STOMACH, ENDO, DIAGN [id number] 10/17/16 Assessment/Plan - Problem List Patient Problems: All Active Problems FEVER WITH POSTERIOR BODY ACHES (Acute) Nutritional Asmnt/Malnutr-PDOC - Dietary Evaluation Malnutrition Findings (Please click <Entered> for more info): Nutritional Asmnt/Malnutrition Start: 10/19/16 14: 26 Text: Status: Complete Freq: Document 10/19/16 14:26 [facility] (Rec: 10/19/16 14:38 [facility] [id number]) Nutritional Asmnt/Malnutrition Patient General Information Nutritional Screening Consult Diagnosis High lactic acid, acute sepsis Pertinent Medical Hx/Surgical Hx DM, hx SCT with ablation therapy. Subjective Information Nutrition Consult for high blood sugar received and completed. Pt is a 56-year-old female admitted with chief complaint of fever, body aches , and abdominal pain for 2 days. Pt was awake and alert. Pt reports working night shifts, and she only eats once a day around 1400. Pt drinks coffee, water, and tea throughout her work hours. RD discussed diabetes management with pt and encouraged consistent meal intake for glycemic control. Pt verbalized understanding. RD discussed alternative food ideas that she can tolerate, such as yogurts, smoothies, and nutrition oral supplements . RD weighed pt today with extra blankets removed: 158.2# /71.9 kg. Current Diet Order/ Nutrition Support CCHO-75 GM, renal Patient / S.O Indicated Pertinent Medications Novolog, Morphine, Piperacillin Sodium, NaCl 0.9% , Vancomycin Pertinent Labs (10/17) Glucose 529H, A1C 15.9H (10/19) Creatinine 2H ( improving), Glucose (fasting) 175H, POC Glucose 287H, Phosphorous 2.4L, Magnesium 1. 7L Nutritional Hx/Data Height 1.6 m Height (Calculated Centimeters) 160.0 Current Weight (lbs) 71.758 kg Weight (Calculated Kilograms) 71.8 Weight (Calculated Grams) 68540.3 Usual body Weight (lbs) 164 % Usual Body Weight 96 [place] Body Weight 115 % [place] Body Weight 138 Recent Weight Change Yes Weight Status Overweight GI Symptoms GI Symptoms Nausea Vomitting Food Allergies No Cultural/Ethnic/Scientology Belief No cultural or adventist beliefs reported. Usual diet at home Regular, one meal a day Skin Integrity/Comment: Shine 23. Skin intact. Current %PO Fair (50-74%) Estimated Nutritional Goals BEE in Kcals: Using Current wt Calories/Kcals/Kg Based on current wt 71.9 kg with consideration of overwt status, sepsis Kcals Calculated 8609-9481 kcals/day (25-30 kcals/kg) Protein: Using Current wt Protein g/kg: Based on current wt 71.9 kg with consideration of overwt status, sepsis Protein Calculated 89-93 gm/day (1.2-1.3 gm/kg) renal labs improving Fluid: ml Per MD/DO Nutritional Problem 2. Problem Problem Severe protein-calorie malnutrition related to Etiology inadequate oral intake as evidenced by Signs/Symptoms: significant 6% body wt loss in one month, dietary recall reveals less than 75% of estimated nutritional needs met x 2 years. 1. Problem Problem Altered nutrition-related laboratory values related to Etiology inconsistent carbohydrate intake, vomiting as evidenced by Signs/Symptoms: admitting glucose 529 mg/dl and A1C 15.9%. Malnutrition Alert Food and Nutrition Intake (Moderate) <75% est energy req 7days Interpretation of weight loss (Severe) >5% in 1 month Protein-Calorie Malnutrition Severe Is there a minimum of two criteria Yes selected? Query Text:Check all the applicable criteria. A minimum of two criteria are recommended for diagnosis of either severe or non-severe malnutrition. Malnutrition Related to Morbid Obesity Malnutrition related to morbid obesity No Intervention/Recommendation Recommendations by RD Dietary Education by RD1 Comments 1. Recommend CCHO-75 GM, low sodium diet to better meet protein needs. 2. Educate pt on consistent oral intake every 4-6 hours for glycemic regimen. Discussed food options that will be easier to consume with schedule and GI tolerance. Also discussed sitting up or walking for at least 30 minutes after eating to prevent reflux. Expected Outcomes/Goals Expected Outcomes/Goals 1. Blood glucose will trend towards desired parameters. 2. Pt will consume at least 75 % of meals consistently. Physician Parameters for PEM Serum Albumin (g/dl) 3.5 - 5.0 (Normal)
--- NOTE | 2016-10-23 18:06 | Pathology Report ---
[id number] Collection date: 10/22/2016 Surgeon: Dr. Atiya Paul Specimen Description: 1: Antrum biopsy 2: Duodenum biopsy 3: Sigmoid colon biopsy 4: Rectal biopsy Gross Description: Part 1: Received in formalin are two britt soft tissue fragments ranging from 0.1 to 0.2 cm in greatest dimension. Totally submitted in one cassette labeled A. Gross Description: Part II: Received in formalin are two britt soft tissue fragments ranging from 0.1 to 0.2 cm in greatest dimension. Totally submitted in one cassette labeled B. Gross Description: Part III: Received in formalin is a 0.4 cm polypoid britt soft tissue fragment. Totally submitted in one cassette labeled C. Gross Description: Part IV: Received in formalin is a single britt soft tissue fragment measuring 0.1 cm in greatest dimension. Totally submitted in one cassette labeled D. Microscopic Description: Part I: The histologic sections show gastric mucosa with mild chronic inflammation present consisting of lymphocytes and plasma cells. The Giemsa stain shows no evidence for Helicobacter pylori. Diagnosis: Part I: 1. Mild chronic gastric, antrum biopsy. 2. The Giemsa stain is negative for Helicobacter pylori. Microscopic Description: Part II: The histologic sections show duodenal mucosa with intact intestinal villi, showing no evidence for villous abnormality. There is mild chronic inflammation present consisting of increased numbers of lymphocytes and plasma cells. Diagnosis: Part II: 1. Mild non specific chronic inflammation, duodenum biopsy. 2. There is no evidence for celiac disease / sprue. Microscopic Description: Part III: The histologic sections show colon mucosa with adenomatous glandular changes present consisting of nuclear enlargement and stratification. The adenomatous glands form mostly tubules consistent with tubular adenoma. Diagnosis: Part III: Benign adenomatous polyp consistent with tubular adenoma (sigmoid colon biopsy). Microscopic Description: Part IV: The histologic sections show benign colo-rectal mucosa with mild chronic inflammation present consisting of slightly increased numbers of lymphocytes and plasma cells. There is no evidence for hyperplastic or adenomatous changes. Diagnosis: Part IV: Mild non specific chronic inflammation, rectal biopsy. [facility]# [id number]
--- NOTE | 2016-10-26 22:50 | Discharge Summary ---
DATE OF DISCHARGE: 10/23/2016 INITIAL DIAGNOSES: Sepsis of unknown etiology, diabetes, hypertension, history of atrial fibrillation, history of ablation surgery. HOSPITAL COURSE: The patient had cardiac consult and ID consult. The patient was given IV antibiotics. The patient also had endoscopy, which was negative. The patient improved and the patient was in a stable condition. FINAL DIAGNOSES: Sepsis improving, history of diabetes, history of atrial fibrillation, history of ablation surgery. The patient was discharged ____ follow up ____ in one week. MEDICATIONS: See medication reconciliation ____ as tolerated. CONDITION AT THE TIME OF DISCHARGE: Stable. JOB# [id number]
== END 2016-10-23 13:24 | disposition home or self-care (01) | DRG 720 ==
LOC: ER 14:49 → MSI 17:16
PROVIDERS: ADMIT Internal Medicine; ATTEND Internal Medicine
PROC: 0DB68ZX Excision of Stomach, Via Natural or Artificial Opening Endoscopic, Diagnostic (ICD-10-PCS; principal; 2016-10-22)
PROC: 0DBN8ZZ Excision of Sigmoid Colon, Via Natural or Artificial Opening Endoscopic (ICD-10-PCS; 2016-10-22)
PROC: 0DBP8ZZ Excision of Rectum, Via Natural or Artificial Opening Endoscopic (ICD-10-PCS; 2016-10-22)
PROC: 0DB98ZX Excision of Duodenum, Via Natural or Artificial Opening Endoscopic, Diagnostic (ICD-10-PCS; 2016-10-22)
DX: A41.9 Sepsis, unspecified organism (principal); E11.22 Type 2 diabetes mellitus with diabetic chronic kidney disease; N18.4 Chronic kidney disease, stage 4 (severe); N17.9 Acute kidney failure, unspecified; I48.91 Unspecified atrial fibrillation; E11.42 Type 2 diabetes mellitus with diabetic polyneuropathy; E11.65 Type 2 diabetes mellitus with hyperglycemia; I12.9 Hypertensive chronic kidney disease with stage 1 through stage 4 chronic kidney disease, or unspecified chronic kidney disease; E11.43 Type 2 diabetes mellitus with diabetic autonomic (poly)neuropathy; K31.84 Gastroparesis; E87.1 Hypo-osmolality and hyponatremia; K29.70 Gastritis, unspecified, without bleeding; D50.9 Iron deficiency anemia, unspecified; K59.00 Constipation, unspecified; K63.5 Polyp of colon; K62.1 Rectal polyp; K64.8 Other hemorrhoids; Z90.49 Acquired absence of other specified parts of digestive tract
CPT/HCPCS: 36415-UA; 71010-TC; 80048-TC; 80053-TC; 80202-TC; 81001-TC; 81015-TC; 82010-TC; 82043-90; 82150-TC; 82570-TC; 82948-90; 83036-90; 83605; 83690-TC; 83735-TC; 84100-TC; 84300-TC; 84443-TC; 84484-TC; 84550-TC; 85007-TC; 85025-TC; 85027-TC; 85610-TC; 90799; 96375; J1815; J2270; J2405; J2543; J3370; J3475; J7030; Z7502; Z7506; Z7508; Z7610

== ENCOUNTER 2016-11-23 18:04 | Emergency (ER) | payer MEDICAID ==
[2016-11-23 18:25] LABS: % BASOPHILS 1.4 % (0.0-2.0); % EOSINOPHILS 2.8 % (0.0-5.0); % LYMPHOCYTES 29.1 % (20.0-50.0); % MONOCYTES 6.9 % (2.0-10.0); % NEUTROPHILS 59.8 % (40.0-80.0); HEMOGLOBIN 12.5 gm/dL (12-16); MEAN CELL VOLUME 82.1 fl (81-100); MEAN CORPUSCULAR HEMOGLOBIN 27.5 pg (27.0-31.0); MEAN CORPUSCULAR HGB CONC 33.5 pg (28.0-36.0); MEAN PLATELET VOLUME 7.8 fl; NEUTROPHILE ABSOLUTE 5.4 Th/cmm (1.8-8.0); PLATELET COUNT 418 Th/cmm (150-400); RED BLOOD COUNT 4.56 Mil/cmm (3.80-5.10); RED CELL DISTRIBUTION WIDTH 11.5 % (11.5-20.0)
[2016-11-23 18:29] LABS: HEMATOCRIT 37.4 % (41.0-60); WHITE BLOOD COUNT 8.9 Th/cmm (4.8-10.8)
[2016-11-23 18:42] LABS: ALB/GLOB RATIO 1.3 (1.0-1.8); ANION GAP 10.1 (7.0-16.0); BILIRUBIN,TOTAL 0.3 mg/dL (0.3-1.0); BUN/CREATININE RATIO 13.8; CALCIUM SERUM 9.7 mg/dL (8.6-10.3); CARBON DIOXIDE 24.9 mEq/L (21.0-31.0); CREATININE - SERUM 2.1 mg/dL (0.6-1.2)
[2016-11-23] MEDS ORDERED: Sodium Chloride 0.9% 1,000 ML IV ONE (19:25)
[2016-11-23 20:05] LABS: URINE BILIRUBIN NEGATIVE (NEGATIVE); URINE BLOOD TRACE (NEGATIVE); URINE GLUCOSE (UA) 250 mg/dL (NEGATIVE); URINE KETONE NEGATIVE (NEGATIVE); URINE PH 6.5 (4.6 - 8.0); URINE PROTEIN 100 mg/dL (NEGATIVE); URINE UROBILINOGEN 0.2 E.U./dL (0.2 - 1.0)
[2016-11-23 20:09] LABS: URINE COLOR YELLOW
[2016-11-23 20:10] LABS: URINE BACTERIA NONE SEEN /hpf (NONE SEEN); URINE EPITHELIAL CELLS FEW /lpf (FEW); URINE RBC 0-2 /hpf (0-5); URINE WBC 0-2 /hpf (0-5)
--- NOTE | 2016-11-23 21:32 | ED Physician Chart ---
ED Chief Complaint/HPI - Patient Information Date Seen:: 11/23/16 Time Seen:: 18:19 Chief Complaint:: ABDOMINAL PAIN History of Present Illness:: THIS IS A 56 YO FEMALE WHO IS CONCERNE ABOUT HER ABDOMINAL PAIN THAT RADIATES TO THE BACK. SHE WAS RECENTLY HOSPITALIZE FOR TREATMENT OF A SEVERE URINARY TRACT INFECTION AT THIS HOSPITAL SHE NOW DENIES FEVER BUT HAS BEEN NAUSEATED. SHE DENIES DIARRHEA AND CONSTIPATION. Allergies:: Allergies Allergy/AdvReac Type Severity Reaction Status Date / Time No Known Allergies Allergy Verified 10/17/16 14:56 Vitals:: Vital Signs - 8 hr 11/23/16 11/23/16 18:08 19:40 Temp 98.5 F 98.4 F HR 78 68 RR 19 16 BP 159/77 140/67 O2 Sat % 98 99 Historian:: Patient Review:: Nurse's Note Reviewed, Old Chart Reviewed ED Review of Systems - Review of Systems General/Constitutional: No fever, No chills, No weight loss, No weakness, No diaphoresis, No edema, No loss of appetite Skin: No skin lesions, No rash, No bruising Head: No headache, No light-headedness Eyes: No loss of vision, No pain, No diplopia ENT: No earache, No nasal drainage, No sore throat, No tinnitus Neck: No neck pain, No swelling, No thyromegaly, No stiffness, No mass noted Cardio Vascular: No chest pain, No palpitations, No PND, No orthopnea, No edema Pulmonary: No SOB, No cough, No sputum, No wheezing GI: Nausea, Pain G/U: No dysuria, No frequency, No hematuria Musculoskeletal: No bone or joint pain, No back pain, No muscle pain Endocrine: No polyuria, No polydipsia Psychiatric: No prior psych history, No depression, No anxiety, No suicidal ideation Hematopoietic: No bruising, No lymphadenopathy Allergic/Immuno: No urticaria, No angioedema Neurological: No syncope, No focal symptoms, No weakness, No paresthesia, No headache, No seizure, No dizziness, No confusion, No vertigo ED Past Medical History - Past Medical History Obtainable: Yes Past Medical History: DM, Dyslipidemia Social History: Non Smoker, No Alcohol, No Drug Use, Employed Surgical History: Cholecystectomy Psychiatricy History: None Medication: Reviewed Family Medical History - Family Member Mother History Unknown: Yes Ethnicity: Living Status: Hx Family Cancer: Yes Hx Family Coronary Artery Disease: No Hx Family Congestive Heart Failure: No Hx Family Hypertension: Yes Hx Family Stroke: Yes Hx Family Diabetes: Yes Hx Family Seizures: No Hx Family Dementia: No Hx Family AIDS: No Hx Family HIV: No Hx Family COPD: No Hx Family Hepatitis: No Hx Family Psychiatric Problems: No Hx Family Tuberculosis: No ED Physical Exam - Physical Examination General/Constitutional: Awake, Well-developed, well-nourished, Alert, No distress, GCS 15, Non-toxic appearing, Ambulatory Head: Atraumatic Eyes: Lids, conjuctiva normal, PERRL, EOMI Skin: Nl inspection, No rash, No skin lesions, No ecchymosis, Well hydrated, No lymphadenopathy ENMT: External ears, nose nl, Nasal exam nl, Lips, teeth, gums nl Neck: Nontender, Full ROM w/o pain, No JVD, No nuchal rigidity, No bruit, No mass, No stridor Respiratory: Nl effort/Exclusion, Clear to Auscultation, No Wheeze/Rhonchi/Rales Cardio Vascular: RRR, No murmur, gallop, rubs, NL S1 S2 GI: No organomegaly, No hernia, Normal BS's, Nondistended, No mass/bruits, No McBurney tenderness Other GI comments:: GENERALIZE TENDERNESS OF THE ABDOMEN WITH REBOUND : No CVA tenderness Extremities: No tenderness or effusion, Full ROM, normal strength in all extremities, No edema, Normal digits & nails Neuro/Psych: Alert/oriented, DTR's symmetric, Normal sensory exam, Normal motor strength, Judgement/insight normal, Mood normal, Normal gait, No focal deficits Misc: normal gait, Normal back, No paraspinal tenderness ED Labs/Radiology/EKG Results - Lab Results Results: Laboratory Tests 11/23/16 11/23/16 11/23/16 18:18 18:18 18:18 WBC 8.9 D RBC 4.56 Hgb 12.5 Hct 37.4 L D MCV 82.1 MCH 27.5 MCHC Differential 33.5 RDW 11.5 Plt Count 418 H MPV 7.8 Neutrophils % 59.8 Lymphocytes % 29.1 Monocytes % 6.9 Eosinophils % 2.8 Basophils % 1.4 Sodium 129 L Potassium 4.0 Chloride 98 Carbon Dioxide 24.9 Anion Gap 10.1 BUN 29 H Creatinine 2.1 H Est GFR ( Amer) 31.3 Est GFR (Non-Af Amer) 25.9 BUN/Creatinine Ratio 13.8 Glucose 263 H Hemoglobin A1c % Calcium 9.7 Total Bilirubin 0.3 AST 15 ALT 12 Alkaline Phosphatase 77 Troponin I < 0.01 L Total Protein 6.7 Albumin 3.8 Globulin 2.9 Albumin/Globulin Ratio 1.3 TSH Urine Source Urine Color Urine Clarity Urine pH Ur Specific [place] Urine Protein Urine Glucose (UA) Urine Ketones Urine Blood Urine Nitrate Urine Bilirubin Urine Urobilinogen Ur Leukocyte Esterase Urine RBC Urine WBC Ur Epithelial Cells Urine Bacteria 11/23/16 11/23/16 11/23/16 18:18 18:18 20:00 WBC RBC Hgb Hct MCV MCH MCHC Differential RDW Plt Count MPV Neutrophils % Lymphocytes % Monocytes % Eosinophils % Basophils % Sodium Potassium Chloride Carbon Dioxide Anion Gap BUN Creatinine Est GFR ( Amer) Est GFR (Non-Af Amer) BUN/Creatinine Ratio Glucose Hemoglobin A1c % 12.7 H Calcium Total Bilirubin AST ALT Alkaline Phosphatase Troponin I Total Protein Albumin Globulin Albumin/Globulin Ratio TSH 1.13 Urine Source CLEAN C Urine Color YELLOW Urine Clarity CLEAR Urine pH 6.5 Ur Specific [place] 1.010 Urine Protein 100 H Urine Glucose (UA) 250 H Urine Ketones NEGATIVE Urine Blood TRACE Urine Nitrate NEGATIVE Urine Bilirubin NEGATIVE Urine Urobilinogen 0.2 Ur Leukocyte Esterase NEGATIVE Urine RBC 0-2 Urine WBC 0-2 Ur Epithelial Cells FEW Urine Bacteria NONE SEEN - Radiology Results Results: CT SCAN OF THE ABDOMEN AND PELVIS = NAD ED Assessment - Assessment General Assessment: DEHYDRATION ABDOMINAL PAIN DIABETES MELLITUS ED Septic Shock - . Is Septic Shock (SBP<90, OR Lactate>4 mmol\L) present?: No - <6hrs of presentation: Vital Signs: Vital Signs - 8 hr 11/23/16 11/23/16 18:08 19:40 Temp 98.5 F 98.4 F HR 78 68 RR 19 16 BP 159/77 140/67 O2 Sat % 98 99 ED Reassessment (Disposition) - Reassessment Reassessment Condition:: Improved - Diagnosis Diagnosis:: DEHYDRATION ABDOMINAL PAIN - Aftercare/Follow up Instructions Aftercare/Follow-Up Instructions:: Counseled pt regarding lab results/diagnosis & need follow up, Refer to Discharge Instructions, Counseled pt & family regarding lab results/diagnosis & need follow up - Patient Disposition Discharge/Transfer:: Home Condition at Disposition:: Improved ED Discharge Plan - Patient Disposition Admit/Discharge/Transfer: PT DISCHARGED HOME Condition at Disposition: Improved Instructions: Abdominal Pain, Dehydration, Adult, [id number] Additional Instructions: follow up with primary doctor tomorrow. Forms: Work Release Form
--- NOTE | 2016-11-24 07:52 | Diagnostic Imaging Report ---
Exam: CT examination of pelvis HISTORY: Pain Total DLP equals 386 CTDI equals 7.9 Findings: Multiple contiguous thin section of the abdomen pelvis obtained from lower thorax to the pubic symphysis with without the administration of contrast material. No prior studies available comparison. The study demonstrates normal aeration of lung parenchyma the bases. The liver and spleen are normal. There is evidence of previous cholecystectomy. The pancreas is intact. The adrenal glands are normal. Kidneys demonstrate no evidence of obstructive uropathy or nephrolithiasis. Moderate amount of fecal content is noted throughout the colon. The uterus is intact. The urinary bladder is distended. Bony structures demonstrate no evidence for lytic or blastic lesions. IMPRESSION: Status post cholecystectomy, otherwise unremarkable examination of the abdomen pelvis Moderate amount of fecal content throughout the colon.
== END 2016-11-23 21:30 | disposition home or self-care (01) ==
LOC: ER 18:04
DX: R10.9 Unspecified abdominal pain (principal); E86.0 Dehydration; E11.9 Type 2 diabetes mellitus without complications; E78.5 Hyperlipidemia, unspecified
CPT/HCPCS: 99285; 96374; 74176; 84484; 36415; 84443; 85025; 81001; 83036; 80053; 87040 ×2; J1885; J7030